=== PATIENT | male | born 1965 | race Caucasian/White ===

== ENCOUNTER 2021-06-08 09:41 | Outpatient (REF) | payer MEDICARE, OTHER, SELFPAY ==
[2021-06-08 10:25] LABS: Blood Urea Nitrogen 14 mg/dL (9-16); Estimated Glomerular Filt Rate > 60
== END 2021-06-08 09:42 | disposition home or self-care (01) ==
LOC: HO.LAB 09:41
PROVIDERS: PCP Internal Medicine; Visit Provider Psychiatry & Neurology Neurology
DX: G35 Multiple sclerosis (principal)
CPT/HCPCS: 36415; 82565; 84520

== ENCOUNTER 2021-06-20 13:25 | Outpatient (REF) | payer MEDICARE, OTHER, SELFPAY ==
--- NOTE | ~2021-06-20 | MR_ITS ---
EXAMINATION: MR BRAIN WITHOUT AND WITH CONTRAST MR CERVICAL SPINE WITHOUT AND WITH CONTRAST CLINICAL INFORMATION: Multiple sclerosis follow up study. Evaluate for disease progression. Pain/weakness in left hip/knee. COMPARISON: Prior MRI studies dated 12/18/2018 and 08/10/2017. TECHNIQUE: Multiplanar, multisequential imaging was obtained of the brain and cervical spine without and with intravenous administration of contrast. Intravenous contrast: Gadavist 10 mL. Limited study with motion artifacts. FINDINGS: BRAIN: When allowing for differences in imaging technique, the overall pattern of disease is without significant change. No new dominant white matter lesions are identified. Multiple low signal lesions on T1-weighted imaging correspond to areas of chronic demyelination. There is no abnormal parenchymal enhancement to suggest active inflammation. The gradient refocused acquisition is normal. No diffusion abnormalities are identified to suggest an acute or subacute infarct. The ventricles are normal in size. No mass effect or midline shift is seen. No extra-axial fluid collections are seen. On postcontrast imaging, there is no abnormal enhancement. There is an incidental stable proteinaceous retention cyst in the left fossa of [place]. Moderate diffuse parenchymal volume loss has slightly worsened. The craniovertebral junction, marrow signal, and midline structures are normal. The major intracranial flow-voids at the level of the [place] of [place] are preserved. The dural venous sinus flow-voids are maintained. The mastoid air cells are well aerated. Mild scattered areas of mucosal thickening noted in the maxillary and ethmoid sinuses. CERVICAL SPINE: A demyelinating plaque in the left ventrolateral cervical cord at the C2-C3 level is again visible with mild cord volume loss. No new additional lesions are visible, though assessment is limited due to motion artifacts. No abnormal enhancement visible. Significant loss of disc height with endplate spurring has progressed at the C6-C7 level with a mild retrosubluxation. Mild posterior subluxation also noted at the C3-C4 level without change. No compression fractures visible. C2-C3: Minimal annular bulge and exuberant right-sided facet arthropathy with moderate right foraminal encroachment, slightly worsened. C3-C4: Retrosubluxation and broad-based disc-osteophyte complex result in worsened imbj-sa-lzokugwk central canal stenosis with severe foraminal encroachment. C4-C5: Shallow left paracentral disc protrusion and mild endplate spurring with hypertrophic facet degeneration. Mild central canal stenosis and rriorxlm-yi-cobowd foraminal narrowing, more so on the left side. C5-C6: Mild left paracentral disc protrusion is stable with hypertrophic facet arthropathy on the right side. Mild central canal stenosis and worsened severe right and voex-cd-lyuuypwv left foraminal encroachment. C6-C7: Retrosubluxation and severe loss of disc height with a broad-based disc-osteophyte complex. Gagpfxsv-ja-lzfqpx foraminal narrowing, more so on the right side. C7-T1: No significant disc pathology. Patent central canal and foramina. There are small central and paracentral disc protrusions visible at the upper thoracic levels with mild impression upon the ventral thecal sac, superimposed upon mild disc-osteophyte complexes. MR/MR cervical spine wo/w con IMPRESSION: Limited study with motion artifacts. Otherwise, no evidence of disease progression in the brain or cervical spine. No focal parenchymal enhancement to indicate active inflammation. Mildly progressed moderate diffuse brain parenchymal volume loss. Progressed multilevel cervical spondylosis with significant foraminal encroachment due to facet spurring and disc-osteophyte complexes.
--- NOTE | ~2021-06-20 | MR_ITS ---
EXAMINATION: MR BRAIN WITHOUT AND WITH CONTRAST MR CERVICAL SPINE WITHOUT AND WITH CONTRAST CLINICAL INFORMATION: Multiple sclerosis follow up study. Evaluate for disease progression. Pain/weakness in left hip/knee. COMPARISON: Prior MRI studies dated 12/18/2018 and 08/10/2017. TECHNIQUE: Multiplanar, multisequential imaging was obtained of the brain and cervical spine without and with intravenous administration of contrast. Intravenous contrast: Gadavist 10 mL. Limited study with motion artifacts. FINDINGS: BRAIN: When allowing for differences in imaging technique, the overall pattern of disease is without significant change. No new dominant white matter lesions are identified. Multiple low signal lesions on T1-weighted imaging correspond to areas of chronic demyelination. There is no abnormal parenchymal enhancement to suggest active inflammation. The gradient refocused acquisition is normal. No diffusion abnormalities are identified to suggest an acute or subacute infarct. The ventricles are normal in size. No mass effect or midline shift is seen. No extra-axial fluid collections are seen. On postcontrast imaging, there is no abnormal enhancement. There is an incidental stable proteinaceous retention cyst in the left fossa of [place]. Moderate diffuse parenchymal volume loss has slightly worsened. The craniovertebral junction, marrow signal, and midline structures are normal. The major intracranial flow-voids at the level of the [place] are preserved. The dural venous sinus flow-voids are maintained. The mastoid air cells are well aerated. Mild scattered areas of mucosal thickening noted in the maxillary and ethmoid sinuses. CERVICAL SPINE: A demyelinating plaque in the left ventrolateral cervical cord at the C2-C3 level is again visible with mild cord volume loss. No new additional lesions are visible, though assessment is limited due to motion artifacts. No abnormal enhancement visible. Significant loss of disc height with endplate spurring has progressed at the C6-C7 level with a mild retrosubluxation. Mild posterior subluxation also noted at the C3-C4 level without change. No compression fractures visible. C2-C3: Minimal annular bulge and exuberant right-sided facet arthropathy with moderate right foraminal encroachment, slightly worsened. C3-C4: Retrosubluxation and broad-based disc-osteophyte complex result in worsened rutd-dk-juumusiq central canal stenosis with severe foraminal encroachment. C4-C5: Shallow left paracentral disc protrusion and mild endplate spurring with hypertrophic facet degeneration. Mild central canal stenosis and zxfryfbf-fb-ezqoqv foraminal narrowing, more so on the left side. C5-C6: Mild left paracentral disc protrusion is stable with hypertrophic facet arthropathy on the right side. Mild central canal stenosis and worsened severe right and ipyv-sm-swdeijjz left foraminal encroachment. C6-C7: Retrosubluxation and severe loss of disc height with a broad-based disc-osteophyte complex. Xojrlqct-un-qkmhfi foraminal narrowing, more so on the right side. C7-T1: No significant disc pathology. Patent central canal and foramina. There are small central and paracentral disc protrusions visible at the upper thoracic levels with mild impression upon the ventral thecal sac, superimposed upon mild disc-osteophyte complexes. MR/MR head/brain wo/w con IMPRESSION: Limited study with motion artifacts. Otherwise, no evidence of disease progression in the brain or cervical spine. No focal parenchymal enhancement to indicate active inflammation. Mildly progressed moderate diffuse brain parenchymal volume loss. Progressed multilevel cervical spondylosis with significant foraminal encroachment due to facet spurring and disc-osteophyte complexes.
== END 2021-06-20 13:26 | disposition home or self-care (01) ==
LOC: HO.MRI 13:25
PROVIDERS: PCP Internal Medicine; Visit Provider Psychiatry & Neurology Neurology
DX: G35 Multiple sclerosis (principal)
CPT/HCPCS: 70553; 72156; A9585

== ENCOUNTER 2021-10-05 09:17 | Outpatient (REF) | payer MEDICARE, OTHER, SELFPAY ==
[2021-10-05 11:15] LABS: Appearance Urine TURBID; Color Urine YELLOW; Glucose Urine UA NEG (NEG); Leukocyte Esterase Urine NEG (NEG); Nitrite Urine NEG (NEG); PH 5.5 (5.0-8.0); Specific Gravity - Urine >= 1.030 (1.005-1.025); Urine Blood NEG (NEG); Urine Ketones NEG (NEG); Urine Protein TRACE MG/DL (NEG-TRACE)
[2021-10-05 11:37] LABS: Hematocrit 46.4 % (42.0-52.0); Hemoglobin 15.4 g/dl (14.0-18.0); Mean Corpuscular HGB Conc 33.2 g/dl (31.0-36.0); Mean Corpuscular Volume 96.5 fL (80.0-98.0); Mean Platelet Volume 10.5 fL (9.4-12.4); Platelet Count 208 X10*3/uL (160-400); Red Blood Count 4.81 X10*6/uL (4.60-5.80); Red Cell Distribution Width 13.5 % (11.0-16.0); White Blood Count 4.5 X10*3/uL (4.8-10.8)
[2021-10-05 11:40] LABS: RBC Urine 0-2 /HPF (0); Squamous Epithelial Cell Urine TRACE /LPF; WBC Urine 0-2 /HPF (0-4)
[2021-10-05 11:41] LABS: Amorphous Sediment Urine 3+ /LPF; Hyaline Casts Urine 0-2 /LPF
[2021-10-05 12:08] LABS: Estimated Average Glucose 103 mg/dL; Hemoglobin A1c % 5.2 %
[2021-10-05 12:16] LABS: Alanine Aminotransferase 31 U/L (0-40); Albumin Level 4.1 g/dL (3.5-5.0); Alkaline Phosphatase 69 U/L (39-117); Anion Gap 12 (12-20); Aspartate Amino Transferase 31 U/L (5-37); Bilirubin Total 1.3 mg/dL (0.0-1.0); Blood Urea Nitrogen 13 mg/dL (9-16); Calcium 9.2 mg/dL (8.4-10.2); Carbon Dioxide 23 mmol/L (22-29); Chloride 108 mmol/L (96-108); Cholesterol 161 mg/dL; Estimated Glomerular Filt Rate > 60; Glucose Fasting 108 mg/dL (60-99); HDL Cholesterol 53 mg/dL; LDL Cholesterol Calculated 97 mg/dl; Potassium 4.2 mmol/L (3.3-5.1); Sodium 139 mmol/L (135-145); Total Protein 6.7 g/dL (6.5-8.0); Triglycerides 55 mg/dL
[2021-10-05 13:09] LABS: Prostate Specific Antigen Scr 1.22 ng/mL (<0.05-4.0)
== END 2021-10-05 09:18 | disposition home or self-care (01) ==
LOC: HO.HMGCLDS 09:17
PROVIDERS: PCP Internal Medicine; Visit Provider Internal Medicine
DX: Z00.00 Encounter for general adult medical examination without abnormal findings (principal); Z12.5 Encounter for screening for malignant neoplasm of prostate; E78.5 Hyperlipidemia, unspecified
CPT/HCPCS: 36415; 80053; 80061; 81001; 83036; 84153; 85027

== ENCOUNTER → 2022-03-07 14:37 | Outpatient (BNVA) | payer MEDICARE, OTHER, SELFPAY | PROVIDERS: PCP Internal Medicine; Visit Provider Urology | DX: N40.0 Benign prostatic hyperplasia without lower urinary tract symptoms (principal); G35 Multiple sclerosis | CPT/HCPCS: 51798; 99202 ==

== ENCOUNTER 2022-03-16 10:44 | Outpatient (REF) | payer MEDICARE, OTHER, SELFPAY ==
--- NOTE | ~2022-03-16 | XR_ITS ---
EXAMINATION: LEFT FOOT AND ANKLE X-RAYS CLINICAL INFORMATION: Pain COMPARISON: Previous left ankle x-ray February 2018 TECHNIQUE: 3 views of the left foot and 3 views of the left ankle FINDINGS: Left ankle: Bone alignment is normal. No fracture or dislocation is seen. The ankle mortise is normal. There is lateral soft tissue swelling. Left foot: No acute fracture or dislocation is seen. There is a well-corticated ossification adjacent to the lateral proximal phalanx of the fifth toe at the PIP joint questionable for old fracture. Joint spaces and soft tissues are normal. XR/XR ankle LT 2V IMPRESSION: Left ankle: Lateral soft tissue swelling. No fracture or dislocation. Left foot: Question old fracture of the proximal phalanx of the fifth toe.
--- NOTE | ~2022-03-16 | XR_ITS ---
EXAMINATION: LEFT FOOT AND ANKLE X-RAYS CLINICAL INFORMATION: Pain COMPARISON: Previous left ankle x-ray February 2018 TECHNIQUE: 3 views of the left foot and 3 views of the left ankle FINDINGS: Left ankle: Bone alignment is normal. No fracture or dislocation is seen. The ankle mortise is normal. There is lateral soft tissue swelling. Left foot: No acute fracture or dislocation is seen. There is a well-corticated ossification adjacent to the lateral proximal phalanx of the fifth toe at the PIP joint questionable for old fracture. Joint spaces and soft tissues are normal. XR/XR foot LT min 3V IMPRESSION: Left ankle: Lateral soft tissue swelling. No fracture or dislocation. Left foot: Question old fracture of the proximal phalanx of the fifth toe.
[2022-03-16 14:08] LABS: MANUAL DIFF FLAG NO
[2022-03-16 14:22] LABS: Basophils Absolute Auto 0.1 X10*3/uL (0.0-0.2); Basophils Percent Auto 1.4 % (0-2); Eosinophils Absolute Auto 0.2 X10*3/uL (0.0-0.4); Eosinophils Percent Auto 3.9 % (0-4); Hematocrit 44.9 % (42.0-52.0); Imm Gran Abs Auto 0.01 X10*3/uL (0.00-0.03); Imm Gran Pct Auto 0.2 % (0.0-0.4); Lymphocytes Absolute Auto 1.4 X10*3/uL (1.2-4.9); Lymphocytes Percent Auto 34.3 % (20-40); Mean Corpuscular HGB Conc 33.4 g/dl (31.0-36.0); Mean Corpuscular Hemoglobin 32.8 pg (27.0-33.0); Mean Corpuscular Volume 98.2 fL (80.0-98.0); Monocytes Absolute Auto 0.8 X10*3/uL (0.1-1.2); Monocytes Percent Auto 18.6 % (2-11); Neutrophils Absolute Auto 1.7 x10*3/uL (2.0-8.3); Neutrophils Percent Auto 41.6 % (45-73); Platelet Count 196 X10*3/uL (160-400); Red Blood Count 4.57 X10*6/uL (4.60-5.80); Red Cell Distribution Width 13.8 % (11.0-16.0); White Blood Count 4.1 X10*3/uL (4.8-10.8)
[2022-03-16 14:34] LABS: Alanine Aminotransferase 23 U/L (0-40); Albumin Level 4.2 g/dL (3.5-5.0); Alkaline Phosphatase 62 U/L (39-117); Anion Gap 13 (12-20); Aspartate Amino Transferase 26 U/L (5-37); Bilirubin Total 1.1 mg/dL (0.0-1.0); Blood Urea Nitrogen 14 mg/dL (9-16); Calcium 9.5 mg/dL (8.4-10.2); Carbon Dioxide 27 mmol/L (22-29); Chloride 105 mmol/L (96-108); Estimated Glomerular Filt Rate > 60; Glucose Random 104 mg/dL (60-115); Potassium 4.7 mmol/L (3.3-5.1); Sodium 140 mmol/L (135-145); Total Protein 6.9 g/dL (6.5-8.0)
== END 2022-03-16 10:45 | disposition home or self-care (01) ==
LOC: HO.HMGCX 10:44
PROVIDERS: PCP Internal Medicine; Visit Provider Internal Medicine
DX: M79.89 Other specified soft tissue disorders (principal); M25.572 Pain in left ankle and joints of left foot; M79.672 Pain in left foot
CPT/HCPCS: 36415; 73600; 73630; 80053; 85025

== ENCOUNTER 2022-03-23 13:03 | Outpatient (REF) | payer MEDICARE, OTHER, SELFPAY ==
--- NOTE | ~2022-03-23 | US_ITS ---
EXAMINATION: US VENOUS ULTRASOUND WITH DOPPLER LOWER EXTREMITY, LEFT CLINICAL INFORMATION: Left lower extremity edema. COMPARISON: None TECHNIQUE: Ultrasound of the deep veins is performed from the hip to the calf with compression sonography and color and pulse Doppler assessment. Spectral analysis with color-flow imaging is performed. FINDINGS: There is normal venous compression and respiratory variation and augmented flow. The visualized common femoral vein, superficial femoral vein, profunda femoral vein, popliteal vein, and the trifurcation region shows no evidence of deep venous thrombosis. No left popliteal cyst. Mild subcutaneous edema seen in the left calf. If the patient's symptoms persist, followup ultrasound in 5 days 7 days might be of value to exclude proximal propagation from a non-visualized calf vein. US/US venous duplex LE LT IMPRESSION: No evidence for deep venous thrombosis in the visualized veins of the left lower extremity.
== END 2022-03-23 13:04 | disposition home or self-care (01) ==
LOC: HO.HMGCX 13:03
PROVIDERS: PCP Internal Medicine; Visit Provider Internal Medicine
DX: R60.0 Localized edema (principal)
CPT/HCPCS: 93971

== ENCOUNTER → 2022-05-16 10:49 | Outpatient (BNVA) | payer OTHER, MEDICARE, SELFPAY | PROVIDERS: PCP Internal Medicine; Visit Provider Urology | DX: N40.0 Benign prostatic hyperplasia without lower urinary tract symptoms (principal); N32.81 Overactive bladder | CPT/HCPCS: 52000; 99212 ==

== ENCOUNTER → 2022-08-24 11:08 | Outpatient (BNVA) | payer OTHER, MEDICARE, SELFPAY | PROVIDERS: PCP Internal Medicine; Visit Provider Urology | DX: N32.81 Overactive bladder (principal); N40.0 Benign prostatic hyperplasia without lower urinary tract symptoms | CPT/HCPCS: Q3014 ==

== ENCOUNTER 2022-12-07 11:36 | Outpatient (REF) | payer OTHER, MEDICARE, SELFPAY ==
[2022-12-07 13:44] LABS: MANUAL DIFF FLAG NO
[2022-12-07 13:47] LABS: Basophils Absolute Auto 0.1 X10*3/uL (0.0-0.2); Basophils Percent Auto 1.6 % (0-2); Eosinophils Absolute Auto 0.2 X10*3/uL (0.0-0.4); Eosinophils Percent Auto 4.2 % (0-4); Hematocrit 47.9 % (42.0-52.0); Hemoglobin 16.3 g/dl (14.0-18.0); Imm Gran Abs Auto 0.01 X10*3/uL (0.00-0.03); Imm Gran Pct Auto 0.2 % (0.0-0.4); Lymphocytes Absolute Auto 1.8 X10*3/uL (1.2-4.9); Mean Corpuscular Hemoglobin 32.9 pg (27.0-33.0); Mean Corpuscular Volume 96.6 fL (80.0-98.0); Mean Platelet Volume 10.6 fL (9.4-12.4); Monocytes Absolute Auto 0.7 X10*3/uL (0.1-1.2); Monocytes Percent Auto 15.8 % (2-11); Neutrophils Absolute Auto 1.7 x10*3/uL (2.0-8.3); Neutrophils Percent Auto 38.2 % (45-73); Platelet Count 201 X10*3/uL (160-400); Red Blood Count 4.96 X10*6/uL (4.60-5.80); Red Cell Distribution Width 13.4 % (11.0-16.0); White Blood Count 4.5 X10*3/uL (4.8-10.8)
[2022-12-07 14:05] LABS: Alanine Aminotransferase 27 U/L (0-40); Albumin Level 4.3 g/dL (3.5-5.0); Alkaline Phosphatase 65 U/L (39-117); Anion Gap 13 (12-20); Aspartate Amino Transferase 29 U/L (5-37); Bilirubin Total 1.6 mg/dL (0.0-1.0); Blood Urea Nitrogen 13 mg/dL (9-16); Calcium 9.3 mg/dL (8.4-10.2); Carbon Dioxide 24 mmol/L (22-29); Chloride 107 mmol/L (96-108); Cholesterol 158 mg/dL; Estimated Glomerular Filt Rate > 60; Glucose Fasting 113 mg/dL (60-99); HDL Cholesterol 55 mg/dL; LDL Cholesterol Calculated 92 mg/dl; Potassium 4.4 mmol/L (3.3-5.1); Sodium 140 mmol/L (135-145); Total Protein 6.9 g/dL (6.5-8.0); Triglycerides 56 mg/dL
[2022-12-07 14:22] LABS: TSH reflex Free T4 3.86 uIU/mL (0.32-4.0)
== END 2022-12-07 11:37 | disposition home or self-care (01) ==
LOC: HO.HMGCLDS 11:36
PROVIDERS: PCP Internal Medicine; Visit Provider Internal Medicine
DX: E78.5 Hyperlipidemia, unspecified (principal); Z00.00 Encounter for general adult medical examination without abnormal findings
CPT/HCPCS: 36415; 80053; 80061; 84443; 85025

== ENCOUNTER 2023-01-18 21:34 | Emergency (ER) | payer OTHER, MEDICARE, SELFPAY ==
[2023-01-18 21:39] VITALS: BP 161/82; PULSE 85; RESP 16; TEMP 37; O2SAT 95; BMI 31.7
--- NOTE | 2023-01-18 22:58 | ED.WOUNDLAC ---
HPI - Wound/Laceration General Chief Complaint: Wound/Laceration Stated Complaint: fell hit head and laceration Time Seen by Provider: 01/18/23 22:48 Source: patient Mode of arrival: ambulatory Limitations: no limitations History of Present Illness HPI narrative: Patient comes to the emergency room complaining of a laceration to the forehead. Patient states that he was walking out with his dog, fell forward and injured his forehead. Patient is not on blood thinners. Patient denies headache. Denies neck pain. Denies any other injuries. Related Data Home Medications Medication Instructions Recorded Confirmed cholecalciferol (vitamin D3) PO 10/03/21 12/07/22 mesalamine 1.2 gram tablet,delayed 2.4 g PO DAILY 10/03/21 12/07/22 release teriflunomide 14 mg tablet 14 mg PO DAILY 10/03/21 12/07/22 (Aubagio) vitamin B complex PO 10/03/21 12/07/22 Previous Rx's Medication Instructions Recorded terazosin 10 mg capsule 10 mg PO BEDTIME 90 days #90 caps 08/24/22 furosemide 40 mg tablet 40 mg PO DAILY #90 tabs 12/07/22 Allergies Allergy/AdvReac Type Severity Reaction Status Date / Time No Known Allergies Allergy Verified 12/07/22 10:54 [No Known Allergies*] Review of Systems Review of Systems: Constitutional : No Weight loss, No Fever, No Chills, No Night Sweats, No Fatigue, No Malaise ENT/Mouth : No Hearing loss, No Ear Pain, No Nasal Congestion, No Sinus Pain, No Hoarseness, No sore throat, No Rhinorrhea, No Swallowing Difficulty Eyes: No Eye Pain, No Swelling, No Redness, No Foreign Body, No Discharge, No Vision Changes Cardiovascular : No Chest Pain, No SOB, No Dyspnea on Exertion, No Orthopnea, No Edema, No Palpitations Respiratory : No Cough, No Sputum, No Wheezing, No Smoke Exposure, No Dyspnea Gastrointestinal : No Nausea, No Vomiting, No Diarrhea, No Constipation, No abdominal Pain, No Hematochezia, No Melena Genitourinary : no irregular bleeding, No Dysuria, No Urinary Frequency, No Hematuria, No Urinary Incontinence, No Urgency, No Flank Pain, No Urinary Flow Changes, No Hesitancy Musculoskeletal : No joint pain, No Myalgias, No Joint Swelling Skin : Laceration to the forehead Neuro : No Weakness, No Numbness, No Paresthesias, No Loss of Consciousness, No Dizziness, No Headache Psych : No Anxiety/Panic, No Depression, No SI/HI/AH/VH, No Social Issues, Heme/Lymph: No Bruising, No Bleeding,No Lymphadenopathy Endocrine : No Polyuria, No Polydipsia, No Temperature Intolerance [facility] Past Medical History Medical History Annual physical exam BPH (benign prostatic hyperplasia) Crohn's disease Hyperlipidemia IBS (irritable bowel syndrome) Multiple sclerosis Surgical History H/O colonoscopy Family History Family History Father DM (diabetes mellitus) Social History Social History Housing: House Patient Tobacco Use Status: Former Tobacco user Smoked in Last 30 Days: No e-Cigarette/Vaping Use: Never Used Use of substances other than those prescribed or required for medical reasons: No Advance Directives: No Advance Directives Information Provided: Yes Current occupational status: unemployed Cognitive needs: No Hearing needs: No Vision needs: Yes Physical Exam Vital Signs: Vital Signs: Last Vital Signs Temp 98.6 F 01/18/23 21:39 Pulse 85 01/18/23 21:39 Resp 16 01/18/23 21:39 BP 161/82 H 01/18/23 21:39 Pulse Ox 95 01/18/23 21:39 O2 Del Method Room Air 01/18/23 21:39 BMI result Body Mass Index 31.7 Const: Other: Appearance: Alert. Oriented X3. No acute distress. Eyes: Pupils equal, round and reactive to light. ENT: Pharynx normal. Neck: Normal inspection. Neck supple. No lymph nodes noted. No crepitus CVS: Normal heart rate and rhythm. Pulses normal. Normal S1 and S2 Respiratory: No respiratory distress. Breath sounds normal. No Wheezing. No rales Abdomen: Soft and nontender. No rigidity. No distention. Skin: Skin warm and dry. Normal skin color. Normal skin turgor. 6 cm laceration to the forehead Extremities: No lower extremity edema. No Lacerations. No Rash Neuro: Oriented X 3. No motor deficit. No sensory deficit. Moving all extremities. No slurred speech. CN 2 through 12 grossly intact Psych: calm, cooperative, normal affect Medical Decision Making Differential Diagnosis Differential Diagnoses: The differential diagnosis associated with the presentation includes (laceration, abrasion, cut) Chronic Conditions Patient?s care impacted by: Other (Multiple sclerosis, Crohn's, BPH, hyperlipidemia) Procedures Laceration Laceration 1: Site: face Size (cm): 6 Description: linear and irregular Depth: simple, single layer Local Anesthetic: lidocaine 1% Amount of anesthesia used (mL): 12 Skin layer closed with: nylon Size (cm): 5-0 Number of sutures: 9 Technique: simple, interrupted Discharge Plan Discharge Clinical Impression: Facial laceration Patient Disposition: Home, Self-Care Instructions: Facial Laceration (ED) Additional Instructions: Your stitches need to be removed in 7-10 days. If you see any signs of infection such as redness, pus drainage, fever or chills, please return to the emergency room immediately. Please follow-up with your primary care physician tomorrow. If you have any worsening or new symptoms, please return to the emergency room or call 911 Prescriptions: No Action mesalamine 1.2 gram tablet,delayed release (DR/EC) 2.4 g PO DAILY Aubagio 14 mg tablet 14 mg PO DAILY cholecalciferol (vitamin D3) PO vitamin B complex PO furosemide 40 mg tablet 40 mg PO DAILY Qty: 90 1RF terazosin 10 mg capsule 10 mg PO BEDTIME 90 Days Qty: 90 1RF
[2023-01-18] MEDS: Lidocaine HCl 1 % 20 ML VIAL INFILTRATI (23:30)
== END 2023-01-18 23:56 | disposition home or self-care (01) ==
PROVIDERS: Emergency Provider Emergency Medicine; PCP Internal Medicine
DX: S01.81XA Laceration without foreign body of other part of head, initial encounter (principal); R51.9 Headache, unspecified; W01.10XA Fall on same level from slipping, tripping and stumbling with subsequent striking against unspecified object, initial encounter; Y93.9 Activity, unspecified; Y92.9 Unspecified place or not applicable; Y99.9 Unspecified external cause status
CPT/HCPCS: 12014; 99284

== ENCOUNTER 2023-01-26 09:48 | Emergency (ER) | payer OTHER, SELFPAY ==
[2023-01-26 09:50] VITALS: BP 182/96; PULSE 80; RESP 19; TEMP 36.6; O2SAT 98; BMI 31.7
--- NOTE | 2023-01-26 10:24 | ED.GENADULT ---
HPI - General Adult General Chief complaint: Wound/Laceration Stated complaint: stitches removal Time Seen by Provider: 01/26/23 10:00 Source: patient Mode of arrival: ambulatory Limitations: no limitations History of Present Illness HPI narrative: 57-year-old male with history of multiple sclerosis presents to the ED for facial suture removal. Patient states no erythema, pus discharge, foul odor, fever, chills, or pain and wound. Patient denies any other physical complaints. Related Data Home Medications Medication Instructions Recorded Confirmed cholecalciferol (vitamin D3) PO 10/03/21 12/07/22 mesalamine 1.2 gram tablet,delayed 2.4 g PO DAILY 10/03/21 12/07/22 release teriflunomide 14 mg tablet 14 mg PO DAILY 10/03/21 12/07/22 (Aubagio) vitamin B complex PO 10/03/21 12/07/22 Previous Rx's Medication Instructions Recorded terazosin 10 mg capsule 10 mg PO BEDTIME 90 days #90 caps 08/24/22 furosemide 40 mg tablet 40 mg PO DAILY #90 tabs 12/07/22 Allergies Allergy/AdvReac Type Severity Reaction Status Date / Time No Known Allergies Allergy Verified 01/26/23 09:50 [No Known Allergies*] Review of Systems Review of Systems: Suture removal Yes all other systems are reviewed and are negative PMFSH Past Medical History Medical History Annual physical exam BPH (benign prostatic hyperplasia) Crohn's disease Hyperlipidemia IBS (irritable bowel syndrome) Multiple sclerosis Surgical History H/O colonoscopy Family History Family History Father DM (diabetes mellitus) Social History Social History Housing: House Patient Tobacco Use Status: Former Tobacco user e-Cigarette/Vaping Use: Never Used Advance Directives: Yes Advance Directives Information Provided: Yes Advance Directives on File: No Current occupational status: unemployed Cognitive needs: No Hearing needs: No Vision needs: Yes Physical Exam ED Vital Signs: Vital Signs - 24 hr 01/26/23 09:50 Temperature 98 F Pulse Rate 80 Respiratory Rate 19 Blood Pressure 182/96 H Pulse Oximetry 98 Oxygen Delivery Method Room Air BMI result Body Mass Index 31.7 Const General: cooperative, healthy appearing, comfortable, no acute distress, well developed, alert, awake and Physically active Orientation/consciousness: oriented to person, oriented to place, oriented to time and patient oriented x3 HENMT Head: Yes normal to inspection, Yes No palpable skull fracture present, Yes normocephalic, Yes atraumatic and No abrasion Head images: 1. healing laceration with sutures. No signs of infection. No signs of dehiscence Eyes General: appearance normal, both eyes and all related structures Neck Neck: Yes normal visual inspection, Yes full ROM, Yes no lymphadenopathy, Yes no meningeal signs, Yes trachea midline, Yes supple, No anterior neck swelling and No tender Chest Chest palpation & inspection: normal inspection of the chest and normal palpation of entire chest wall Resp Effort & Inspection: normal respiratory effort and able to speak in complete sentences Auscultation: clear to auscultation bilaterally Cardio Jugular venous distension: no JVD Heart sounds: S1 normal heart sound present and S2 normal heart sound present GI Inspection: Yes normal to inspection and No abdominal wall ecchymosis Palpation (GI): Soft to palpation, not firm, nontender, no guarding and not rigid General: No CVA tenderness and Yes no CVA tenderness Back/Spine/Pelvis Back: no CVA tenderness, No CVA tenderness and No back tenderness Skin General skin exam: no rashes or lesions noted and elasticity normal Neuro General: oriented to person, oriented to place, oriented to time, patient oriented x3, gait normal, tone normal, moves all extremities, Normal light touch and pain sensation, no meningeal signs, no focal motor deficits, CN's II-XI intact bilaterally and normal sensation to monofilament Extrem General: Yes normal to inspection and Yes full ROM Psych Appearance: grossly normal, well kempt and not disheveled Medical Decision Making Medical Decision Making MDM Narrative: 57-year-old male with history of Crohn's disease, multiple sclerosis, hypertension presents to the ED for facial suture be removed. Patient states no signs of infection at sutures. Patient states no other complaints. Sutures removed and wound cleaned. Patient is safe for discharge. Differential Diagnosis Differential Diagnoses: The differential diagnosis associated with the presentation includes ( Cellulitis, wound infection, wound dehiscence) Admission/Observation Consideration of admission/observation: Escalation of care including admission/observation considered Chronic Conditions Patient?s care impacted by: Other ( multiple sclerosis) Discharge Plan Discharge Clinical Impression: Encounter for removal of sutures Patient Disposition: Home, Self-Care Instructions: Stitches Removal (ED) Additional Instructions: return to the ED immediately for any redness, pus discharge, foul odor, fever, chills, or any other concerning symptoms. Please follow-up with the primary care provider. Prescriptions: No Action mesalamine 1.2 gram tablet,delayed release (DR/EC) 2.4 g PO DAILY Aubagio 14 mg tablet 14 mg PO DAILY cholecalciferol (vitamin D3) PO vitamin B complex PO furosemide 40 mg tablet 40 mg PO DAILY Qty: 90 1RF terazosin 10 mg capsule 10 mg PO BEDTIME 90 Days Qty: 90 1RF Interventions: ED Discharge Assessment Last Done: 01/26/23 11:10 Discharge Date/Time: 01/26/23 11:11 Print Language: [place]
== END 2023-01-26 11:11 | disposition home or self-care (01) ==
PROVIDERS: Emergency Provider Emergency Medicine Emergency Medical Services; PCP Internal Medicine
DX: Z48.02 Encounter for removal of sutures (principal); Z79.899 Other long term (current) drug therapy
CPT/HCPCS: 99282

== ENCOUNTER 2023-03-09 13:26 | Outpatient (AMB) | payer OTHER, MEDICARE, SELFPAY ==
--- NOTE | 2023-03-09 13:28 | A.OFFVIS_ITS ---
Intake Intake Visit Reasons: 6m follow up/PVR Intake Note: Patient is present for Follow Up PVR Urology Med: Terazosin Antibiotic Allergy: none Blood Thinner: None Pharmacy: [facility] PVR: 0ml Allergies No Known Allergies [No Known Allergies*] Allergy (Verified 03/09/23 13:30) HPI HPI Comments History of Present Illness Details Richard is a pleasant male. He is a patient Dr. Galaviz. Seen for the following urologic conditions - lower urinary tract symptoms - overactive bladder - multiple sclerosis Stable with current medications Tight bladder neck on cystoscopy Stable with 10 mg terazosin Continue 6 month follow-up Lower urinary tract symptoms Weakness of stream with urinary urgency and feeling of incomplete emptying Background of multiple sclerosis diagnosed in 2014 Had trialed Flomax with minimal effect Current medications include terazosin 10 mg Cystoscopy - tight bladder neck PSA 10/11 1.2 PFSH Medical History Annual physical exam BPH (benign prostatic hyperplasia) Crohn's disease Hyperlipidemia IBS (irritable bowel syndrome) Multiple sclerosis Surgical History H/O colonoscopy Family History Father DM (diabetes mellitus) Social History Housing: House Patient Tobacco Use Status: Former Tobacco user e-Cigarette/Vaping Use: Never Used Current occupational status: unemployed Cognitive needs: No Hearing needs: No Vision needs: Yes Review of Systems Const Denies chills and Denies fever(s) Card Reports no additional complaints and Denies syncope Resp Denies cough GI Denies abdominal pain and Denies heartburn Reports as per HPI and Denies change in libido Neuro Denies syncope Psych Denies change in libido Endo Denies change in libido Physical Exam Const General: cooperative, healthy appearing, comfortable and no acute distress Orientation/consciousness: patient oriented x3 HEENT Face and sinus: Yes normal facial exam Mouth: moist mucous membranes Neck Neck: Yes normal visual inspection, Yes full ROM and Yes trachea midline Chest Chest palpation & inspection: normal inspection of the chest Resp Effort & Inspection: normal respiratory effort, able to speak in complete sentences and no respiratory distress GI Inspection: Yes normal to inspection Back/Spine/Pelvis Cervical Spine: normal cervical lordosis Thoracic/Lumbar Spine: thoracic and lumbar spine normal to inspection Skin General skin exam: no rashes or lesions noted Neuro General: patient oriented x3, gait normal, tone normal and moves all extremities Extrem General: Yes normal to inspection and Yes capillary refill normal Office Procedures Post Void Residual Post Residual Void Post Void Residual (PVR): 0 98250-Wgtj Void Residual by ultrasound Assessment & Plan Assessment & Plan (1) Multiple sclerosis: Comment: f/u Dr Obando, L side weakness Code(s): G35 - Multiple sclerosis (2) BPH (benign prostatic hyperplasia): Code(s): N40.0 - Benign prostatic hyperplasia without lower urinary tract symptoms Plan 6 month follow-up PVR Orders: Orders AMB Urinalysis Automated Today Z13.9 - Encounter for screening, unspecified AMB Post Void Residual by ultrasound Today N40.0 - Benign prostatic hyperplasia without lower urinary tract symptoms Patient Instructions: Imaging studies, laboratory and physical exam results were discussed and revie wed in detail. No major barriers to patient understanding were identified. An opportunity to ask questions regarding the treatment plan was provided. All questions were answered. The patient expressed understanding and agreement with the above treatment plan. The patient is aware they should contact our office by phone for worsening of their current condition or the appearance of new urologic symptoms. Compliance is encouraged with any medications and followup testing that is ordered. It is a privilege to participate in the urologic care of your patient. If you have any questions or concerns regarding treatment for the above conditions, or other urologic issues, please do not hesitate to contact me. The office telephone contact is [phone]. This note is constructed using voice recognition software. While every effort has been made to ensure accuracy field installation technician errors may have been included. Yours sincerely, Dr Rodo Quiroz MD, [facility] - Urology Providers of Expert, Compassionate Care for the Genitourinary System Coding Level of Care Code Est Pt Level 3 (43331) Diagnoses Multiple sclerosis G35 BPH (benign prostatic hyperplasia) N40.0 CPT Codes Post Residual Void - PVR CPT Code: 64827-Hzdu Void Residual by ultrasound ([id number])
== END 2023-03-09 13:56 | disposition home or self-care (01) ==
PROVIDERS: PCP Internal Medicine; Visit Provider Urology
DX: G35 Multiple sclerosis (principal); N40.0 Benign prostatic hyperplasia without lower urinary tract symptoms
CPT/HCPCS: 99213

== ENCOUNTER → 2023-03-09 13:26 | Outpatient (BNVA) | payer OTHER, MEDICARE, SELFPAY | PROVIDERS: Visit Provider Urology | DX: G35 Multiple sclerosis (principal); N40.0 Benign prostatic hyperplasia without lower urinary tract symptoms | CPT/HCPCS: 51798; 99212 ==

== ENCOUNTER 2023-07-12 13:29 | Outpatient (REF) | payer OTHER, MEDICARE, SELFPAY ==
--- NOTE | ~2023-07-12 | MR_ITS ---
EXAMINATION: MR BRAIN WITH AND WITHOUT CONTRAST CLINICAL INFORMATION: MS, TIA COMPARISON: MRI brain 06/20/2021 TECHNIQUE: MRI of the brain was obtained using routine sequences before and following administration of intravenous contrast. A total of 10 mL of Gadavist was administered intravenously. FINDINGS: Motion degraded examination. Stable moderate burden of demyelinating disease throughout the supratentorial greater than infratentorial compartments with multiple low T1 signal intensity lesions compatible with chronic demyelinating plaques. No new lesions identified. No enhancement to suggest active demyelination. There is thinning of the body of the corpus callosum. Stable moderate global cerebral volume loss. The GRE sequence is without susceptibility artifact to suggest acute or chronic blood products. No extra-axial fluid collection. No significant mass effect or herniation pattern. The intracranial dural venous sinus and arterial flow voids are preserved. The orbits are grossly unremarkable. Mild patchy paranasal sinus mucosal disease most pronounced in the ethmoid air cells. A couple opacified bilateral mastoid air cells. Normal marrow signal. MR/MR head/brain wo/w con IMPRESSION: Stable moderate burden of demyelinating disease without new or enhancing lesions identified to suggest active demyelination. No new acute intracranial process.
[2023-07-12] MEDS: gadobutroL 10 ML VIAL IVPUSH (14:36)
== END 2023-07-12 13:30 | disposition home or self-care (01) ==
LOC: HO.MRI 13:29
PROVIDERS: PCP Internal Medicine; Visit Provider Psychiatry & Neurology Neurology
DX: G35 Multiple sclerosis (principal); G45.9 Transient cerebral ischemic attack, unspecified
CPT/HCPCS: 70553; A9585

== ENCOUNTER 2023-09-18 13:21 | Outpatient (AMB) | payer OTHER, MEDICARE, SELFPAY ==
--- NOTE | 2023-09-18 13:39 | A.OFFVIS_ITS ---
Intake Intake Visit Reasons: 6M PVR(Confirmed) Intake Note: Patient is Present for Follow Up PVR Urology Medication: Terazosin Antibiotic Allergies: None Blood Thinners: None Confirmed Pharmacy: [facility] PVR: 0 Allergies No Known Allergies [No Known Allergies*] Allergy (Verified 09/18/23 13:41) HPI HPI Comments History of Present Illness Details Richard is a pleasant male. He is a patient Dr. Galaviz. Seen for the following urologic conditions - lower urinary tract symptoms - overact laurie bladder - multiple sclerosis Six-month follow-up PVR 0 cc Stable with current medications Tight bladder neck on cystoscopy Stable with 10 mg terazosin Discussed DSD - detrusor sphincter dyssynergia Lower urinary tract symptoms Weakness of stream with urinary urgency and feeling of incomplete emptying Background of multiple sclerosis diagnosed in 2014 Had trialed Flomax with minimal effect Current medications include terazosin 10 mg Cystoscopy - tight bladder neck PSA 10/11 1.2 PFSH Medical History BPH (benign prostatic hyperplasia) Hyperlipidemia Annual physical exam Crohn's disease IBS (irritable bowel syndrome) Multiple sclerosis Surgical History H/O colonoscopy Family History Father DM (diabetes mellitus) Social History Housing: House Patient Tobacco Use Status: Former Tobacco user e-Cigarette/Vaping Use: Never Used Current occupational status: unemployed Cognitive needs: No Hearing needs: No Vision needs: Yes Review of Systems Const Denies chills and Denies fever(s) Card Reports no additional complaints and Denies syncope Resp Denies cough GI Denies abdominal pain and Denies heartburn Reports as per HPI and Denies change in libido Neuro Denies syncope Psych Denies change in libido Endo Denies change in libido Physical Exam Const General: cooperative, healthy appearing, comfortable and no acute distress Orientation/consciousness: patient oriented x3 HEENT Face and sinus: Yes normal facial exam Mouth: moist mucous membranes Neck Neck: Yes normal visual inspection, Yes full ROM and Yes trachea midline Chest Chest palpation & inspection: normal inspection of the chest Resp Effort & Inspection: normal respiratory effort, able to speak in complete sentences and no respiratory distress GI Inspection: Yes normal to inspection Back/Spine/Pelvis Cervical Spine: normal cervical lordosis Thoracic/Lumbar Spine: thoracic and lumbar spine normal to inspection Skin General skin exam: no rashes or lesions noted Neuro General: patient oriented x3, gait normal, tone normal and moves all extremities Extrem General: Yes normal to inspection and Yes capillary refill normal Office Procedures Post Void Residual Post Residual Void Post Void Residual (PVR): 0 65526-Hebc Void Residual by ultrasound Assessment & Plan Assessment & Plan (1) Overactive bladder: Code(s): N32.81 - Overactive bladder (2) Multiple sclerosis: Comment: f/u Dr Obando, Nabil side weakness Code(s): G35 - Multiple sclerosis (3) BPH (benign prostatic hyperplasia): Code(s): N40.0 - Benign prostatic hyperplasia without lower urinary tract symptoms Plan Twelve month follow-up Orders: Orders AMB Post Void Residual by ultrasound 09/18/23 N40.0 - Benign prostatic hyperplasia without lower urinary tract symptoms Medications: Refilled terazosin 10 mg PO BEDTIME 90 caps 3RF 90 days N40.0 - Benign prostatic hyperplasia without lower urinary tract symptoms Patient Instructions: Imaging studies, laboratory and physical exam results were discussed and reviewed in detail. No major barriers to patient understanding were identified. An opportunity to ask questions regarding the treatment plan was provided. All questions were answered. The patient expressed understanding and agreement with the above treatment plan. The patient is aware they should contact our office by phone for worsening of their current condition or the appearance of new urologic symptoms. Compliance is encouraged with any medications and followup testing that is ordered. It is a privilege to participate in the urologic care of your patient. If you have any questions or concerns regarding treatment for the above conditions, or other urologic issues, please do not hesitate to contact me. The office telephone contact is [phone]. This note is constructed using voice recognition software. While every effort has been made to ensure accuracy blanket cutting machine operator errors may have been included. Yours sincerely, Dr Rodo Quiroz MD, [facility] - Urology Providers of Expert, Compassionate Care for the Genitourinary System Coding Level of Care Code Est Pt Level 4 (37273) Diagnoses Overactive bladder N32.81 Multiple sclerosis G35 BPH (benign prostatic hyperplasia) N40.0 CPT Codes Post Residual Void - PVR CPT Code: 88269-Tfsf Void Residual by ultrasound ([id number])
== END 2023-09-18 14:06 | disposition home or self-care (01) ==
PROVIDERS: PCP Internal Medicine; Visit Provider Urology
DX: N32.81 Overactive bladder (principal); G35 Multiple sclerosis; N40.0 Benign prostatic hyperplasia without lower urinary tract symptoms
CPT/HCPCS: 99213

== ENCOUNTER → 2023-09-18 13:21 | Outpatient (BNVA) | payer OTHER, MEDICARE, SELFPAY | PROVIDERS: PCP Internal Medicine; Visit Provider Urology | DX: N32.81 Overactive bladder (principal); N40.0 Benign prostatic hyperplasia without lower urinary tract symptoms; G35 Multiple sclerosis; Z79.899 Other long term (current) drug therapy | CPT/HCPCS: 51798 ==

== ENCOUNTER 2024-04-16 10:22 | Outpatient (AMB) | payer OTHER, MEDICARE, SELFPAY ==
--- NOTE | 2024-04-16 10:31 | A.OFFPC_ITS ---
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 Intake Note: establish care Allergies No Known Allergies [No Known Allergies*] Allergy (Verified 04/16/24 10:35) Medication List - Last Reconciled 04/16/24 by Prudencio Stroud MD albuterol sulfate 90 mcg/actuation (Ventolin HFA) 1 inh inhalation QID PRN cholecalciferol (vitamin D3) PO furosemide 40 mg PO DAILY mesalamine 2.4 grams PO DAILY terazosin 10 mg PO BEDTIME 90 days teriflunomide (Aubagio) 14 mg PO DAILY vitamin B complex PO Tobacco use date assessed: 04/16/24 Dental Screening Dental Screen Date: 04/16/24 Did you have a dental visit in the last 12 months?: Yes Did you have a dental problem in the last 6 months where you did not have access to dental care?: No Was dental information given to patient?: Patient has dentist 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 ?? Prior PCP:? Dr Galaviz Last office visit/CPE:? Acute issue(s):? R Shoulder pain x 7-8 mos L foot swelling & pain Foot ankle arthritis on Xray Podiatry Dr Reynoso Chronic cough ?? PMHx:??Multiple?sclerosis - Neurologist: Dr Haines , Crohn's - [facility] hyperlipidemia, lower?extremity?edema, BPH, overactive?bladder: Dr Quiroz., hyperglycemia. ?Ex-smoker SurgHx:? Lung resection/biopsy - Noncancerous/Just cyst SocHx:??Ex-smoker quit 2015 HPI Comments History of Present Illness Details Documentation assistance for Prudencio Stroud MD, was provided by Brett Nichole,? Inspecting Supervisor on 04/16/2024 at 11:40 AM EST. I, Dr. Stroud, have read, observed, and verified documentation. [facility] Medical History BPH (benign prostatic hyperplasia) Hyperlipidemia Annual physical exam Crohn's disease IBS (irritable bowel syndrome) Multiple sclerosis Surgical History H/O colonoscopy Family History Father DM (diabetes mellitus) Social History (Updated 04/16/24 @ 10:35 by Eliot Brewster MA) Housing: House Patient Tobacco Use Status: Former Tobacco user e-Cigarette/Vaping Use: Never Used Current occupational status: unemployed and retired Cognitive needs: No Hearing needs: No Vision needs: Yes Questionnaire PHQ-9 Over the last 2 weeks, how often have you been bothered by any of the following problems? 1. Little interest or pleasure in doing things: not at all 2. Feeling down, depressed, or hopeless: not at all 3. Trouble falling or staying asleep, or sleeping too much: several days 4. Feeling tired or having little energy: several days 5. Poor appetite or overeating: not at all 6. Feeling bad about yourself - or that you are a failure or have let yourself or your family down: not at all 7. Trouble concentrating on things, such as reading the newspaper or watching television: not at all 8. Moving or speaking so slowly that other people could have noticed. Or the opposite - being so fidgety or restless that you have been moving around a lot more than usual: not at all 9. Thoughts that you would be better off or of hurting yourself in some way: not at all Total score: 2 Depression Screening Interpretation: Negative Depression Screening Done: Yes 87219 - PHQ-9 Billing: Yes Source: Developed by Drs. Markos Albert, Agueda Auguste, Cristopher Ruiz and colleagues, with an educational viridiana from [employer]. Thrive Questionnaire Date Thrive assessed: 04/16/24 I am a: Patient What is your living situation today?: I have a steady place to live Within the past 12 months, did the food you bought not last and you didn't have the money to get more?: Never true Within the past 12 months, did you worry whether your food would run out before you got money to buy more?: Never true Do you have trouble paying for medicines?: No Do you have trouble getting transportation to medical appointments?: No Do you have trouble paying your heating and electricity bill?: No Do you have trouble taking care of your child, family member or friend?: No Do you have trouble with day-to-day activities such as bathing, preparing meals, shopping, managing finances, etc.?: No Are you currently unemployed and looking for a job?: No Are you interested in more education?: No Currently or been in a relationship where the following occur: No concerns reported THRIVE Score: 0 AUDIT C Alcohol Use Questionnaire (AUDIT-C) 1. How often do you have a drink containing alcohol?: 2-3 times a week 2. How many drinks containing alcohol do you have on a typical day when you are drinking?: 3 or 4 3. How often do you have six or more drinks on one occasion?: Less than monthly Total Score: 5 Score Reviewed/Action Taken: Yes JING-7 AMB Questionnaire JING-7 Date JING - 7 assessed: 04/16/24 Feeling nervous, anxious, or on edge: 0 = Not at all Not being able to stop or control worryin = Not at all Worrying too much about different things: 1 = Several days Trouble relaxin = Several days Being so restless that it is hard to sit still: 1 = Several days Becoming easily annoyed or irritable: 1 = Several days Feeling afraid as if something awful might happen: 0 = Not at all Total JING-7 score (0-4 normal; 5-9 mild; 10-14 moderate; 15-21 severe): 4 Source: Developed by Drs. Markos Albert, Agueda Auguste, Cristopher Ruiz and colleagues, with an educational viridiana from [employer]. JING-7 Assessment Billing JING-7 Assessment Tool: JING-7 Assessment 56030 Review of Systems Const Denies chills, Denies fatigue, Denies fever(s), Denies headache(s) and Denies weakness ENT Denies dizziness and Denies headache(s) Card Denies chest pain, Denies lightheadedness, Denies dyspnea and Denies other (Palpitations) Resp Reports cough, Denies dyspnea and Denies wheezing Musc Denies numbness and Denies tingling Neuro Denies dizziness, Denies headache(s), Denies numbness, Denies tingling, Denies paresthesias and Denies weakness Psych Denies anxiety and Denies depression Endo Denies fatigue Aller/Immun Denies wheezing Physical exam (Primary Care) Vital Signs: Last Vital Signs Temp 96.2 F L 04/16/24 10:38 Pulse 75 04/16/24 10:38 Resp 16 04/16/24 10:38 BP 140/70 H 04/16/24 10:38 Pulse Ox 97 04/16/24 10:38 Oxygen Delivery Method Room Air 04/16/24 10:38 BMI result Body Mass Index 32.3 Tobacco/Smoking Status: Tobacco use Status Tobacco use date assessed 04/16/24 04/16/24 10:41 Patient Tobacco Use Status Former Tobacco user 04/16/24 10:35 e-Cigarette/Vaping Use Never Used 04/16/24 10:35 PHQ-9: PHQ-9 Score PHQ-9: Total score 2 04/16/24 11:00 Depression Screening Interpretation: Negative Thrive Assessment: Date of Thrive Assessment Date Thrive assessed 04/16/24 04/16/24 10:43 Currently or been in a relationship where the following occur: No concerns reported Const General: no acute distress and well developed Nutritional Appearance: well nourished Orientation/consciousness: patient oriented x3 HENMT Head: Yes normocephalic and Yes atraumatic Eyes General: appearance normal, both eyes and all related structures Pupils: Equal, round and reactive pupils present EOM: EOMs intact bilaterally Resp Other: Mild and distant breath sounds Effort & Inspection: normal respiratory effort Auscultation: clear to auscultation bilaterally Cardio Rate: regular rate Rhythm: regular rhythm Heart sounds: S1 normal heart sound present, S2 normal heart sound present, no gallops, no murmurs and no rubs Neuro General: patient oriented x3 and gait normal Cranial nerves: Yes Equal, round and reactive pupils present Psych Affect: normal affect Assessment and Plan Assessment & Plan (1) Crohn's disease: Comment: f/u Dr. Damian Code(s): K50.90 - Crohn's disease, unspecified, without complications Plan: Patient?is?on?mesalamine Stable Follow-up?with??Mateo?as?recommended (2) Multiple sclerosis: Comment: f/u Dr Obando, L side weakness Code(s): G35 - Multiple sclerosis Plan: Patient?is?on?teriflunomide Stable Follow-up?with??as?recommended Some?left-sided?symptoms,?primarily. (3) Swelling of lower extremity: Comment: left Code(s): M79.89 - Other specified soft tissue disorders Plan: Patient?has?swelling?at?left?foot?and?ankle He?is?using?compression?stockings?and?elevating?his?foot He?has?furosemide I?advised?he?avoid?salt/sodium May?have?some?venous?insufficiency?and?patient?notes?that?he?did?severely?sprain ?his?ankle?quite?some?time?ago?prior?to?the?start?of?his?symptoms. However,?he?also?has?multiple?sclerosis?with?left- sided?symptoms?and?some?this?may?be?neurovascular. Will?follow-up?at?next?visit?and?consider?referral?to?vascular?surgery?if?needed (4) Hyperlipidemia: Code(s): E78.5 - Hyperlipidemia, unspecified Plan: Check?lipids (5) BPH (benign prostatic hyperplasia): Code(s): N40.0 - Benign prostatic hyperplasia without lower urinary tract symptoms Plan: Stable He?is?on?terazosin Follow-up?with?urology?as?recommended (6) Cough: Code(s): R05.9 - Cough, unspecified Plan: Patient?has?intermittent?secretions?and?cough Significant?history?of?smoking?greater?than?20?pack?years? and?likely?greater?than?30?pack?years Lungs?are?clear?today?but?does?have?rather?distant?breath?sounds May?have?some?COPD Checking?chest?x-ray (7) Arthritis of foot: Code(s): M19.079 - Primary osteoarthritis, unspecified ankle and foot Plan: Followed?by?Podiatry Elevate?foot?and?can?use?ice/heat Follow-up?with?podiatry?as?recommend (8) Overactive bladder: Code(s): N32.81 - Overactive bladder (9) Hyperglycemia: Code(s): R73.9 - Hyperglycemia, unspecified (10) Ex-smoker: Comment: quit 2015, 2 PPD x 30 yrs Code(s): Z87.891 - Personal history of nicotine dependence Plan: Likely?greater?than?30?pack?year?history?of?smoking Will?get?low-dose?CT?scan (11) Foot ulceration: Code(s): L97.509 - Non-pressure chronic ulcer of other part of unspecified foot with unspecified severity Plan: Patient?has?lower?extremity?swelling. He?has?excellent?PT?and?DP?pulses?and?warm?toes. This?does?not?appear?to?be?arterial?insufficiency Audelia ent?notes?that?he?had?worn?shoes?that?allowed?his?feet?to?rub?back?and?forth?whi ch?cause?blistering. This?is?already?improving This?appears?to?be?a?singular?incident?on?the?bottoms?of?his?toes?and?is ?already?improving. He?was?given?a?cream?by?his?emts?which?is?helping Continue?current?treatment (12) Laboratory exam ordered as part of routine general medical examination: Code(s): Z00.00 - Encounter for general adult medical examination without abnormal findings Plan: Check?labs Orders: Orders Comprehensive [place]. Panel Fast Today Z00.00 - Encounter for general adult med ical examination without abnormal findings Complete Blood Count Auto Diff Today Z00.00 - Encounter for general adult medical examination without abnormal findings Prostate Specific Antigen Scr Today Z12.5 - Encounter for screening for malignant neoplasm of prostate TSH reflex Free T4 Today Z00.00 - Encounter for general adult medical examination without abnormal findings UA and rflx microscopic Today Z00.00 - Encounter for general adult medical examination without abnormal findings Hemoglobin A1c Today R73.01 - Impaired fasting glucose Microalbumin, Random (w Creat) Today I10 - Essential (primary) hypertension Lipid Panel Today Z00.00 - Encounter for general adult medical examination without abnormal findings XR chest 2V Today R05.9 - Cough, unspecified Referrals Lung Cancer Screening Referral Z87.891 - Personal history of nicotine dependence Medications: Changed From vardenafil 20 mg PO DAILY PRN 30 tabs 2RF sexual activity To vardenafil 20 mg PO DAILY 30 days PRN 30 tabs 2RF sexual activity Coding Level of Care Code New Pt Level 4 (97963) Diagnoses Crohn's disease K50.90 Multiple sclerosis G35 Swelling of lower extremity M79.89 Hyperlipidemia E78.5 BPH (benign prostatic hyperplasia) N40.0 Cough R05.9 Arthritis of foot M19.079 Overactive bladder N32.81 Hyperglycemia R73.9 Ex-smoker Z87.891 Foot ulceration L97.509 Laboratory exam ordered as part of routine general medical examination Z00.00 Additional Codes JING-7 Assessment Billing - JING-7 Assessment Tool: JING-7 Assessment 39104 ([id number])
[2024-04-16 10:38] VITALS: BP 140/70; PULSE 75; RESP 16; TEMP 35.7; O2SAT 97; BMI 32.3
== END 2024-04-16 11:35 | disposition home or self-care (01) ==
PROVIDERS: PCP Internal Medicine; Visit Provider Family Medicine
DX: K50.90 Crohn's disease, unspecified, without complications (principal); G35 Multiple sclerosis; L97.509 Non-pressure chronic ulcer of other part of unspecified foot with unspecified severity; M79.89 Other specified soft tissue disorders; E78.5 Hyperlipidemia, unspecified; N40.0 Benign prostatic hyperplasia without lower urinary tract symptoms; R05.9 Cough, unspecified; M19.079 Primary osteoarthritis, unspecified ankle and foot; N32.81 Overactive bladder; R73.9 Hyperglycemia, unspecified; Z87.891 Personal history of nicotine dependence

== ENCOUNTER → 2024-04-16 10:22 | Outpatient (BNVA) | payer OTHER, MEDICARE, SELFPAY | PROVIDERS: PCP Internal Medicine; Visit Provider Family Medicine | DX: K50.90 Crohn's disease, unspecified, without complications (principal); G35 Multiple sclerosis; M79.89 Other specified soft tissue disorders; N40.0 Benign prostatic hyperplasia without lower urinary tract symptoms; R05.9 Cough, unspecified; M19.079 Primary osteoarthritis, unspecified ankle and foot; N32.81 Overactive bladder; R73.9 Hyperglycemia, unspecified; L97.509 Non-pressure chronic ulcer of other part of unspecified foot with unspecified severity; Z87.891 Personal history of nicotine dependence; Z79.899 Other long term (current) drug therapy | CPT/HCPCS: 96127 ==

== ENCOUNTER 2024-04-17 09:56 | Outpatient (REF) | payer OTHER, MEDICARE, SELFPAY ==
--- NOTE | ~2024-04-17 | XR_ITS ---
EXAMINATION: XR CHEST CLINICAL INFORMATION: Cough, unspecified COMPARISON: CT chest 09/18/2019. TECHNIQUE: 2 views of the chest were obtained. FINDINGS: The cardiac, hilar, mediastinal contours are normal. There is severe emphysema with pulmonary hyperaeration hyperlucency. Generalized thinning of the interstitial markings upper lobe predominant. Suture line noted overlying the left mid and upper lung region from prior left wedge resection. Mild volume loss left lung. Within these confines, lungs are clear. There are no pleural effusions or pneumothorax. There is no focal osseous abnormality. XR/XR chest 2V IMPRESSION: Emphysema and stable postop changes left lung. No superimposed active disease. Electronically signed by: Karthik Sousa MD 06/06/2024 03:54 PM [facility]
[2024-04-17 10:18] LABS: MANUAL DIFF FLAG NO
[2024-04-17 10:55] LABS: Basophils Absolute Auto 0.1 X10*3/uL (0.0-0.2); Basophils Percent Auto 1.3 % (0-2); Eosinophils Absolute Auto 0.1 X10*3/uL (0.0-0.4); Eosinophils Percent Auto 2.9 % (0-4); Hematocrit 44.1 % (42.0-52.0); Imm Gran Abs Auto 0.02 X10*3/uL (0.00-0.03); Imm Gran Pct Auto 0.4 % (0.0-0.4); Lymphocytes Absolute Auto 1.8 X10*3/uL (1.2-4.9); Lymphocytes Percent Auto 40.3 % (20-40); Mean Corpuscular Hemoglobin 33.1 pg (27.0-33.0); Mean Corpuscular Volume 97.4 fL (80.0-98.0); Mean Platelet Volume 10.1 fL (9.4-12.4); Monocytes Absolute Auto 0.6 X10*3/uL (0.1-1.2); Monocytes Percent Auto 13.2 % (2-11); Neutrophils Absolute Auto 1.9 x10*3/uL (2.0-8.3); Neutrophils Percent Auto 41.9 % (45-73); Platelet Count 197 X10*3/uL (160-400); Red Blood Count 4.53 X10*6/uL (4.60-5.80); Red Cell Distribution Width 13.7 % (11.0-16.0); White Blood Count 4.5 X10*3/uL (4.8-10.8)
[2024-04-17 11:04] LABS: Estimated Average Glucose 97 mg/dL; Total Hemoglobin (HGBA1C) 3816.2222 umol/L
[2024-04-17 11:26] LABS: Alanine Aminotransferase 23 U/L (0-40); Albumin Level 4.2 g/dL (3.5-5.0); Alkaline Phosphatase 73 U/L (39-117); Anion Gap 13 (12-20); Aspartate Amino Transferase 26 U/L (5-37); Bilirubin Total 1.1 mg/dL (0.0-1.0); Blood Urea Nitrogen 10 mg/dL (9-16); Calcium 9.4 mg/dL (8.4-10.2); Carbon Dioxide 25 mmol/L (22-29); Chloride 108 mmol/L (96-108); Cholesterol 149 mg/dL (<200); Estimated Glomerular Filt Rate > 60; Glucose Fasting 103 mg/dL (60-99); HDL Cholesterol 51 mg/dL (>40); LDL Cholesterol Calculated 84 mg/dL (<100); Potassium 3.9 mmol/L (3.3-5.1); Sodium 142 mmol/L (135-145); Total Protein 6.9 g/dL (6.5-8.0); Triglycerides 74 mg/dL (<150)
[2024-04-17 11:39] LABS: Prostate Specific Antigen Scr 1.72 ng/mL (<0.05-4.0)
[2024-04-17 11:43] LABS: TSH reflex Free T4 4.49 uIU/mL (0.32-4.0)
[2024-04-17 12:57] LABS: Free T4 (Free Thyroxine) 0.75 ng/dL (0.71-1.85)
== END 2024-04-17 09:57 | disposition home or self-care (01) ==
LOC: HO.XRAY 09:56
PROVIDERS: PCP Family Medicine; Visit Provider Family Medicine
DX: Z00.00 Encounter for general adult medical examination without abnormal findings (principal); R73.01 Impaired fasting glucose; Z12.5 Encounter for screening for malignant neoplasm of prostate; R05.9 Cough, unspecified
CPT/HCPCS: 36415; 71046; 80053; 80061; 83036; 84153; 84439; 84443; 85025

== ENCOUNTER → 2024-04-17 10:19 | Outpatient (BNV) | payer OTHER, MEDICARE, SELFPAY | PROVIDERS: PCP Family Medicine; Visit Provider Radiology Diagnostic Radiology | DX: R05.9 Cough, unspecified (principal) | CPT/HCPCS: 71046 ==

== ENCOUNTER 2024-06-06 14:23 | Outpatient (AMB) | payer OTHER, MEDICARE, SELFPAY ==
--- NOTE | 2024-06-06 14:37 | A.OFFPC_ITS ---
Vital Signs 06/06/24 14:39 Height 6 ft 1 in Weight 243 lb 2 oz BMI 32.1 BP 160/90 H Blood Pressure Location Rt brachial Position Sitting Respiration 16 Pulse 82 Pulse Source Pulse Oximeter Temp 98.2 F Temp Source Oral Pulse Oximetry (%) 96 Oxygen Delivery Method Room Air Intake Visit Reasons: Rsched from 07/07 F/U Chronic Conditions Intake Note: f/u for chronic conditions Allergies No Known Allergies [No Known Allergies*] Allergy (Verified 06/06/24 14:37) Medication List - Last Reconciled 06/06/24 by Prudencio Stroud MD albuterol sulfate 90 mcg/actuation (Ventolin HFA) 1 inh inhalation QID PRN furosemide 40 mg PO DAILY losartan 50 mg PO DAILY 90 days mesalamine 2.4 grams PO DAILY terazosin 10 mg PO BEDTIME 90 days teriflunomide (Aubagio) 14 mg PO DAILY vardenafil 20 mg PO DAILY PRN 30 days vitamin B complex PO Tobacco use date assessed: 04/16/24 Dental Screening Dental Screen Date: 04/16/24 HPI Rsched from 07/07 F/U Chronic Conditions HPI Details 59 y/o male presents for a CPE with f/u labs and health maintenance. Hx of smoking and had sent him for a low-dose CT screen. This does not seem to have been read yet. Has an appt. with pulmonary in a month. Blood pressure today 160/90, 82p. Labs drawn 04/17/24. Reviewed labs with pt. A1c 5.0%. Elevated fasting glucose of 103. Triglycerides 74. TC 149. LDL 84. HDL 51. PSA 1.72. TSH 4.49. Notes hearing changes R ear. HPI Comments History of Present Illness Details Documentation assistance for Prudencio Stroud MD, was provided by Brett Nichole,? Ct Mri Technologist on 06/06/2024 at 3:00 PM EST. I, Dr. Stroud, have read, observed, and verified documentation. [facility] Medical History (Updated 06/06/24 @ 15:05 by Brett Nichole) Personal history of nicotine dependence BPH (benign prostatic hyperplasia) Hyperlipidemia Crohn's disease (~2005) IBS (irritable bowel syndrome) Multiple sclerosis (~2014) Surgical History (Updated 05/22/24 @ 09:54 by Hannah Oden PA-C) History of nasal septoplasty History of bronchoscopy History of vasectomy H/O colonoscopy Family History Father DM (diabetes mellitus) Social History (Updated 04/16/24 @ 10:35 by Eliot Brewster [facility]) Housing: House Patient Tobacco Use Status: Former Tobacco user e-Cigarette/Vaping Use: Never Used Current occupational status: unemployed and retired Cognitive needs: No Hearing needs: No Vision needs: Yes Questionnaire PHQ-9 Over the last 2 weeks, how often have you been bothered by any of the following problems? 1. Little interest or pleasure in doing things: not at all 2. Feeling down, depressed, or hopeless: not at all 3. Trouble falling or staying asleep, or sleeping too much: not at all 4. Feeling tired or having little energy: not at all 5. Poor appetite or overeating: not at all 6. Feeling bad about yourself - or that you are a failure or have let yourself or your family down: not at all 7. Trouble concentrating on things, such as reading the newspaper or watching television: not at all 8. Moving or speaking so slowly that other people could have noticed. Or the opposite - being so fidgety or restless that you have been moving around a lot more than usual: not at all 9. Thoughts that you would be better off or of hurting yourself in some way: not at all Total score: 0 Source: Developed by Drs. Markos Albert, Agueda Auguste, Cristopher Ruiz and colleagues, with an educational viridiana from [employer]. Thrive Questionnaire Date Thrive assessed: 04/16/24 I am a: Patient What is your living situation today?: I have a steady place to live Within the past 12 months, did the food you bought not last and you didn't have the money to get more?: I choose not to answer this question Within the past 12 months, did you worry whether your food would run out before you got money to buy more?: Never true Do you have trouble paying for medicines?: No Do you have trouble getting transportation to medical appointments?: No Do you have trouble paying your heating and electricity bill?: No Do you have trouble taking care of your child, family member or friend?: No Do you have trouble with day-to-day activities such as bathing, preparing meals, shopping, managing finances, etc.?: No Are you currently unemployed and looking for a job?: I choose not to answer this question Are you interested in more education?: No Please select the resources that you would like help with: None Currently or been in a relationship where the following occur: I choose not to answer THRIVE Score: 0 AUDIT C Alcohol Use Questionnaire (AUDIT-C) 1. How often do you have a drink containing alcohol?: 4 or more times a week Total Score: 4 JING-7 AMB Questionnaire JING-7 Date JING - 7 assessed: 04/16/24 Feeling nervous, anxious, or on edge: 0 = Not at all Not being able to stop or control worryin = Not at all Worrying too much about different things: 0 = Not at all Trouble relaxin = Not at all Being so restless that it is hard to sit still: 0 = Not at all Becoming easily annoyed or irritable: 1 = Several days Feeling afraid as if something awful might happen: 0 = Not at all Total JING-7 score (0-4 normal; 5-9 mild; 10-14 moderate; 15-21 severe): 1 Source: Developed by Drs. Markos Albert, Agueda Auguste, Cristopher Ruiz and colleagues, with an educational viridiana from [employer]. Review of Systems Const Denies chills, Denies fatigue, Denies fever(s), Denies headache(s) and Denies weakness Eyes Denies change in vision ENT Denies dizziness and Denies headache(s) Card Denies dyspnea Resp Denies cough, Denies dyspnea, Denies wheezing and Denies other (shortness of breath) GI Denies abdominal pain, Denies melena, Denies hematochezia, Denies change in bowel habits, Denies dyspepsia and Denies nausea Denies hematuria and Denies dysuria Musc Denies numbness and Denies tingling Skin/Breast Denies rash, Denies unusual bruising and Denies wounds Neuro Denies dizziness, Denies headache(s), Denies numbness, Denies Sensory deficit (Neuro), Denies tingling and Denies weakness Psych Denies anxiety and Denies depression Endo Denies fatigue Syd/Lymph Denies easy bleeding and Denies easy bruising Aller/Immun Denies wheezing Physical exam (Primary Care) Vital Signs: Last Vital Signs Temp 98.2 F 06/06/24 14:39 Pulse 82 06/06/24 14:39 Resp 16 06/06/24 14:39 BP 160/90 H 06/06/24 14:39 Pulse Ox 96 06/06/24 14:39 Oxygen Delivery Method Room Air 06/06/24 14:39 BMI result Body Mass Index 32.1 Tobacco/Smoking Status: Tobacco use Status Tobacco use date assessed 04/16/24 06/06/24 14:41 Patient Tobacco Use Status Former Tobacco user 06/06/24 14:41 e-Cigarette/Vaping Use Never Used 06/06/24 14:41 PHQ-9: PHQ-9 Score PHQ-9: Total score 0 06/06/24 14:41 Thrive Assessment: Date of Thrive Assessment Date Thrive assessed 04/16/24 06/06/24 14:41 Currently or been in a relationship where the following occur: I choose not to answer Const General: well developed; No acute distress Nutritional Appearance: well nourished Orientation/consciousness: patient oriented x3 HENMT Head: Yes normocephalic and Yes atraumatic Ears: hearing grossly normal bilaterally and TM's normal bilaterally General nose exam: Normal external nose present and Normal nares present Mouth: Normal oral and palatal mucosa present and moist mucous membranes Teeth and gingiva: dentition normal Throat: Yes posterior oropharynx normal Eyes General: appearance normal, both eyes and all related structures Pupils: Equal, round and reactive pupils present EOM: EOMs intact bilaterally Neck Neck: Yes normal visual inspection, Yes no lymphadenopathy and Yes trachea midline Thyroid: Thyroid normal Carotids: no bruits Lymphatic: no lymphadenopathy noted Chest Chest palpation & inspection: normal inspection of the chest Resp Effort & Inspection: normal respiratory effort Auscultation: clear to auscultation bilaterally Cardio Rate: regular rate Rhythm: regular rhythm Heart sounds: S1 normal heart sound present, S2 normal heart sound present, no gallops, no murmurs and no rubs Bruits: no abdominal aortic bruits and no carotid bruits GI Palpation (GI): No Abdominal aortic bruit present, Soft to palpation, nontender, No hepatosplenomegaly present and No Rebound tenderness present Auscultation: normal bowel sounds General: Yes no CVA tenderness Back/Spine/Pelvis Back: no CVA tenderness Cervical Spine: cervical ROM normal and No Cervical spine tenderness Thoracic/Lumbar Spine: thoraco-lumbar ROM normal, No pain with thoraco-lumbar ROM, No thoracic spinal tenderness and No lumbar spinal tenderness Skin Lesions: no lesions Rashes: no rashes Trauma: no lacerations or abrasions Wounds: no wounds Nails: normal Neuro General: patient oriented x3 and gait normal Cranial nerves: Yes Equal, round and reactive pupils present Cognition (Neuro): normal cognition Gait exam (Neuro): Normal gait present Motor exam (neuro): 5/5 motor strength present throughout Sensory Exam: No Sensory deficit (Neuro) Deep tendon reflexes (DTR's): Right patellar reflex intensity grade: 2+ and Left patellar reflex intensity grade: 2+ Extrem General: Yes normal to inspection and No edema Psych Appearance: grossly normal Affect: normal affect Attitude: cooperative Thought process: Normal thought process present Coding Level of Care Code Est Pt Level 3 (67224) Est Pt Prev Care 40-64y(85239) Diagnoses Adult general medical exam Z00.00 Personal history of nicotine dependence Z87.891 Multiple sclerosis G35 Hypertension I10 Change in hearing H91.90 Elevated TSH R79.89 Screening for prostate cancer Z12.5 Screening for colon cancer Z12.11 Assessment & Plan Assessment & Plan (1) Adult general medical exam: Code(s): Z00.00 - Encounter for general adult medical examination without abnormal findings Category: Medical Plan: 59-year-old?male?presents?for?complete?physical?exam (2) Personal history of nicotine dependence: Comment: (2ppd x 30yrs, 60pyh - quit 2014) Code(s): Z87.891 - Personal history of nicotine dependence Category: Medical Plan: Had?ordered?chest?x- ray?but?this?has?not?been?read?yet.??Asking?the?office?to?check?on?the?status?of ?this He?also?has?a?low-dose?CT?scan?scheduled?in?June He?has?an?appointment?with?pulmonology (3) Multiple sclerosis: Onset Date: ~2014 Comment: f/u Nabil Rivera side weakness Code(s): G35 - Multiple sclerosis Category: Medical Plan: Followed?by? Stable (4) Hypertension: Code(s): I10 - Essential (primary) hypertension Category: Medical Plan: Blood?pressure?is?consistently?in?hypertensive?range Start?losartan Will?follow-up?in?about?2?months (5) Change in hearing: Code(s): H91.90 - Unspecified hearing loss, unspecified ear Category: Medical Plan: Audiology?testing?ordered (6) Elevated TSH: Code(s): R79.89 - Other specified abnormal findings of blood chemistry Category: Medical Plan: Mildly?elevated?TSH?level Free?T4?is?within?normal?range Will?repeat?thyroid?hormone?levels (7) Screening for prostate cancer: Code(s): Z12.5 - Encounter for screening for malignant neoplasm of prostate Category: Medical Plan: PSA?was?within?normal?range. He?is?followed?by?Urology?and?has?an?upcoming?appoint (8) Screening for colon cancer: Code(s): Z12.11 - Encounter for screening for malignant neoplasm of colon Category: Medical Plan: Patient?had?a?colonoscopy?with?Dr. Galindo in?2022 Follow-up?with?automatic stacker?as?recommended Orders: Orders Free T4 (Free Thyroxine) Today E03.9 - Hypothyroidism, unspecified, R79.89 - Other specified abnormal findings of blood chemistry Thyroid Stimulating Hormone Today E03.9 - Hypothyroidism, unspecified, R79.89 - Other specified abnormal findings of blood chemistry Triiodothyronine T3 Total Today E03.9 - Hypothyroidism, unspecified, R79.89 - Other specified abnormal findings of blood chemistry Basic Metabolic Panel Today I10 - Essential (primary) hypertension, Z00.00 - Encounter for general adult medical examination without abnormal findings Microalbumin, Random (w Creat) Today I10 - Essential (primary) hypertension Referrals Audiology Referral H91.90 - Unspecified hearing loss, unspecified ear Medications: New losartan 50 mg PO DAILY 90 days 90 tabs 3RF
[2024-06-06 14:39] VITALS: BP 160/90; PULSE 82; RESP 16; TEMP 36.8; O2SAT 96; BMI 32.1
== END 2024-06-06 15:14 | disposition home or self-care (01) ==
PROVIDERS: PCP Internal Medicine; Visit Provider Family Medicine
DX: Z00.00 Encounter for general adult medical examination without abnormal findings (principal); I10 Essential (primary) hypertension; G35 Multiple sclerosis; Z87.891 Personal history of nicotine dependence; R79.89 Other specified abnormal findings of blood chemistry; H91.93 Unspecified hearing loss, bilateral; Z12.5 Encounter for screening for malignant neoplasm of prostate; Z12.11 Encounter for screening for malignant neoplasm of colon

== ENCOUNTER 2024-06-27 10:47 | Outpatient (AMB) | payer OTHER, MEDICARE, SELFPAY ==
--- NOTE | 2024-06-27 07:54 | MHC.OFFVIS ---
Intake Visit Reasons: Former Smoker Allergies No Known Allergies [No Known Allergies*] Allergy (Verified 06/06/24 14:37) HPI HPI Former Smoker: Details: Initial visit for this 59yo former smoker with a 40PYH. Patient started smoking at age 10 for 40 years at 1ppd. He quit in 2014. . Denies marijuana use. Denies second hand smoke exposure. 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 . Denies known family history of lung cancer. Denies personal history of cancers. Denies chest CT in last year. History of bronchoscopy and LL wedge [place] [address] Alvarado For left lung mass- benign. Post obstructive pneumonia. . Denies recent travel outside the [place]. Denies recent respiratory illness or recent hospitalization for respiratory issues. . Denies fever, chills, new/worsening cough, hemoptysis, hoarseness or dysphagia. Denies significant chest pain, significant dyspnea or unintentional weight loss. Patient Lung Cancer Screening Questionnaire reviewed with patient by provider. . Shared Decision Making Completed. Patient meets criteria. Discussed in detail with patient, the risk vs benefit of LDCT screening. Patient consents to proceed with scan. Discussed and encouraged continued smoking cessation. [facility] Medical History (Updated 06/27/24 @ 10:48 by Hannah Oden PA-C) Personal history of nicotine dependence BPH (benign prostatic hyperplasia) Hyperlipidemia Crohn's disease (~2005) IBS (irritable bowel syndrome) Multiple sclerosis (~2014) Surgical History (Updated 06/27/24 @ 10:55 by Hannah Oden PA-C) History of lung surgery History of nasal septoplasty History of bronchoscopy History of vasectomy H/O colonoscopy Family History Father DM (diabetes mellitus) Social History (Updated 06/27/24 @ 10:48 by Hannah Oden PA-C) Housing: House Patient Tobacco Use Status: Former Tobacco user Years Smoked: (onset 12yo, 1ppd x 40yrs, 40pyh - quit 2014) e-Cigarette/Vaping Use: Never Used Current occupational status: unemployed and retired Cognitive needs: No Hearing needs: No Vision needs: Yes Assessment & Plan Assessment & Plan (1) Personal history of nicotine dependence: Comment: (onset 12yo, 1ppd x 40yrs, 40pyh - quit 2014) Code(s): Z87.891 - Personal history of nicotine dependence Category: Medical Plan: - SDM visit completed today in office. - Patient meets criteria for LDCT for lung cancer screening purposes and is asymptomatic. - Smoking cessation counseling offered. Patients can always call [phone]. - Will arrange for a LDCT scan of the chest for screening purposes at [facility]. - Risks, benefits, and alternatives were discussed in detail and the patient agrees to proceed. - Risks discussed include but are not limited to: radiation exposure, anxiety during testing and while awaiting results, false negatives, false positives and possibility of additional intervention such as further imaging or surgical procedures for benign disease. - Benefits are obviously detection of lung cancer at an early stage which can lead to improved outcomes. - Discussed the importance of screening program compliance with adherence to yearly LDCT scan as scheduled - or sooner interval scans for personalized screening regimen. - Discussed follow up plan. Our office will send a letter discussing results and if needed set up phone call and office visit based on CT findings. - Patient educated on results categorization and the management decisions for suspicious findings potentially found on the screening LDCT scan. Any patient with a Lung RADS score of 3 or 4 will be reviewed by a multidisciplinary team at [facility] to form a plan of action in regards to scan findings. - If further work up is warranted for a suspicious lung finding this will be followed by the Lung Cancer Screening program in conjunction with the Thoracic Surgery Department at [facility]. - A copy of the office note and LDCT will be sent to the patient's PCP - as well as documentation on any associated further plans of care. - Incidental findings on LDCT are the PCP's responsibility. These findings are indicated with an S finding on the LDCT Assessment. A note discussing the findings will be sent to the PCP who is then responsible for further management. - All questions answered.? Coding Level of Care Code Lung Cancer Screening G0296 Diagnoses Personal history of nicotine dependence Z87.891
--- OUTSIDE RECORDS SUMMARY | 2024-07-02 07:44 | XMS_ITS ---
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 Name Role Phone Prudencio Stroud MD Primary Care Provider Nathaniel feliciacharlette Pavithra Reynoso Unavailable [phone] Allergies No Known Allergies Results Component Value Reference Range Notes X ray : Ankle, left 3V Reviewed date:10/15/2023 06:03:58 PM Interpretation:See Examination above Performing Lab: Notes/Report: See Examination above X ray : Foot, left 3V Reviewed date:10/15/2023 06:03:42 PM Interpretation:See Examination above Performing Lab: Notes/Report: See Examination above REASON FOR VISIT Ankle pain, Foot pain Medications Medication SIG (Take, Route, Fr equency, Duration) Notes Start Date End Date Status AFO-fixed . 1 . Wear daily for . 10/15/2023 Active Vitamin D3 Active Aubagio 14 MG 1 tablet Orally Once a day Not-Taking Probiotic Not-Taking Physical Therapy . . . 2-3x/week for 3-4 weeks Not-Taking Vitamin B 12 Active Furosemide 40 MG 1 tablet Orally Once a day Active Mesalamine 1.2 GM 2 tablets Orally Once a day Active Terazosin HCl 10 MG 1 capsule at bedtime Orally Once a day Active Social History Tobacco Use: Social History Observation Description Date Details (start date - stop date) Former Smoker NA - NA Tobacco Use/Smoking Question Answer Notes Are you a: former smoker Additional Findings: Tobacco Non-User Current no n-smoker Alcohol Screen Question Answer Notes Did you have a drink containing alcohol in the p ast year? Yes Points 0 Interpretation Negative Tobacco use other than smoking: Question Answer Notes Are you an other tobacco user? No Problems Problem Type SNOMED Code ICD Code Onset Dates Problem Status W/U Status Risk Notes Problem Osteoarthritis of midtarsal joint of left foot ([id number] ) Osteoarthritis of midtarsal joint of left foot (M19.072) Active confirmed Problem 45402397 Other chronic pain (G89.29) Active confirmed Vital Signs Height 6 ft 1 in in 10/15/2023 Weight 235 lbs 10/15/2023 BMI 31.00 kg/m2 10/15/2023 Encounters Encounter Location Date Provider Diagnosis [facility] [address] [place] [address] 10/15/2023 Pavithra Reynoso Pain in left foot M79.672 ; Osteoarthritis of midtarsal joint of left foot M19.072 ; Pain in left ankle and joints of left foot M25.572 ; Bursitis of left foot M77.52 ; Left foot drop M21.372 and Other chronic pain G89.29 Assessments Encounter Date Diagnosis (ICD Code) Assessment Notes Treatment Notes Treatment Clinical Notes Section Notes 10/15/2023 Pain in left foot (ICD-10 - M79.672) 10/15/2023 Osteoarthritis of midtarsal joint of left foot (ICD-10 - M19.072) 10/15/2023 Pain in left ankle and joints of left foot (ICD-10 - M25.572) 10/15/2023 Bursitis of left foot (ICD-10 - M77.52) 10/15/2023 Left foot drop (ICD-10 - M21.372) 10/15/2023 Other chronic pain (ICD-10 - G89.29) Plan Of Treatment Medication Medication Name Sig Start Date Stop Date Notes AFO-fixed . 1 . Wear daily for . 10/15/2023 Next Appt Details Follow Up: prn, Reason: Provider Name:Pavithra Reynoso , 07/07/2024 11:00:00 AM, [address] [place], [address], Progress Notes * Richard OLIVERA IIIDOB:1964 (58 yo M)Acc No.[id number]:10/15/2023 Progress Notes Patient:Richard Cerrato Provider:?Pavithra Reynoso DPM :1965???Age:58 Y???Sex:Male David e:10/15/2023 Address:[address] [place] [address], [facility] Pcp:Kayla Galaviz MD Subjective: * Chief Complaints: * ???Ankle painFoot pain * HPI: ???Ankle Pain:?Nature:?aching, bruising, pulling, ripping/tearing/searing, sharp, swelling, tenderness, throbbing.?Location:?Outside aspect of the Left ankle.?Duration: ?, several years.?Onset/Cause:?trauma [pt fell?].?Course:?worse.?Aggrevated by:?any pressure, standing, walking.?Treatments:?rest/alter normal daily activity, ice.?Foot Pain:?Nature:?aching, stiffness, swelling, throbbing.?Location:?Top, Midfoot, LEFT.?Duration:?, several years.?Course:?worse.?Treatments:?rest/alter normal daily activity.? * ROS:?General/Constitutional:?Nausea?denies.?Vomiting?denies.?Hunger Thirst?denies.?Loss appetite?denies.?Chills?denies.?Fatigue?denies.?Fever?denies.?Night Sweats?denies.?Unexplained weight loss?denies.?Unexplained weight gain?denies.?HEENTM:?Dentures?denies.?Dizziness?denies.?Glasses/contacts?denies.?Retinopathy?de nies.?Blurred/double vision?denies.?TMJ?denies.?Discharge/drainage?denies.?Implants?denies.?Sore throat?denies.?Dental implants?denies.?Hard of hearing ?denies.?Difficulty chewing/swallowing/speaking?denies.?Nose bleeds?denies.?Sore mouth?denies.?Respiratory:?On Oxygen?denies.?Pneumonia/pleurisy?denies.?Bronchitis?denies.?Emphysema?denies.?C oughing?admits.?Cough blood?denies.?Shortness of breath?denies.?Wheezing?denies.?Cardiovascular:?Pacemaker?denies.?MVP?denies.?WPW?denies.?CHF?denies.?Heart attack?denies.?Septal defect?denies.?Rapid beat?denies.?Chest pain ?denies.?Atrial Fib.?denies.?Murmur/Palpitations?denies.?Gastrointestinal:?Hemorrhoids?denies.?Stomach/Abdominal pain?denies.?Dark blood stool?denies.?Irritable bowel ?admits.?Constipation?denies.?Diarrhea?admits.?Hematology:?Swelling?denies.?Clots?denies.?Varicose Veins?denies.?Bruising?denies.?Bleeding problem?denies.?Genitourinary:?Blood urine?denies.?Frequent/Painfu/urination/bladder control?admits.?Kidney stones?denies.?Infection (UTI)?denies.?Nephropathy?denies.?sex trans dis (STD)?denies.?Prostate?denies.?Musculoskeletal:?Hammertoes?denies.?Bunions?denies.?Back Pain?denies.?Muscle Cramps/ Resting?denies.?Muscle cramps / walking?denies.?Generalized aches and pains?admits.?Weakness?admits.?Integ.:?Easley?denies.?Scars?denies.?Corns/calluses?denies.?Ingrown nails?denies.?Painful nails?denies.?Open Sores?denies.?Rashes?denies.?Neurologic:?Difficulty sleeping?admits.?Brain disorder?denies.?Numbness?denies.?Balance trouble?admits.?Confusion?denies.?Fainting/blackouts?denies.?Tingling?admits.?Tr emors?denies.? * Medical History:? * Surgical History:?nose 2000l jack surgery 2019septoplasty 2000 * Hospitalization/Major Diagno stic Procedure:?Denies Past Hospitalization * Family History:?Mother: dece ased, poor circulation, diagnosed with Family history of arthritis.?Father: , diagnosed with Diabetic - NIDDM, Unspecified essential hypertension, Unspecified heart disease.? Grandmother with cancer, unspecified relation. * Social History:?Tobacco Use:?Tobacco Use/Smoking?Are you a:?former smoker ?Additional Findings: Tobacco Non-User?Current non-smoker ?Tobacco use other than smoking?Are you an other tobacco user??No ???Drugs/Alcohol:?Drugs?Have you used drugs other than those for medical reasons in the past 12 months??No ?Alcohol Screen?Did you have a drink containing alcohol in the past year??Yes ?Points?0 ?Interpretation?Negative ???Miscellaneous:?Caffeine: yes, frequency: 2-3 cups per day. ?no Children. ?Exercise: yes, walking. ?Marital status: . ?Occupation: Disabled/Retired. * Medications:?TakingTerazosin HCl 10 MG Capsule 1 capsule at bedtime Orally Once a dayFurosemide 40 MG Tablet 1 tablet Orally Once a dayMesalamine 1.2 GM Tablet Delayed Release 2 tablets Orally Once a dayVitamin B 12 Vitamin D3 Taking Terazosin HCl 10 MG Capsule 1 capsule at bedtime Orally Once a dayTaking Furosemide 40 MG Tablet 1 tablet Orally Once a dayTaking Mesalamine 1.2 GM Tablet Delayed Release 2 tablets Orally Once a dayTaking Vitamin B 12 Taking Vitamin D3 Not-Taking/PRNAubagio 14 MG Tablet 1 tablet Orally Once a dayProbiotic Physical Therapy . . . . 2-3x/weekMedication List reviewed and reconciled with the patientNot-Taking/PRN Aubagio 14 MG Tablet 1 tablet Orally Once a dayNot-Taking/PRN Probiotic Not-Taking/PRN Physical Therapy . . . . 2-3x/weekMedication List reviewed and reconciled with the patient * Allergies:?N.K.D.A.yes[Aller gies Verified] Objective: * Vitals:?Ht: 6 ft 1 in, Wt:23 5, BMI:31.00, Shoe size:13. * Examination: ???General Examination: ?GENERAL APPEARANCE:?pleasant, alert, well nourished, well developed, well hydrated, with good attention to hygene/body habitus, and in no acute distress.?ORIENTED:?person,place, and time.?Neurological: ?SENSORY:?Neurological exam demonstrates pop lateral left ankle and rearfoot--along course of peroneal tendon.?TINEL'S COMPRESSION:?Negative tarsal tunnel, dex pedis, and medial calcaneal nerves B/L.?BABINSKI REFLEX:?absent.?Neuroma Pain: ?PALPATION:?No interspace pain noted on palpation.?Vascular: ?DP PULSES:?2/4, B/L.?PT PULSES:? 1/4, B/L.?CAPILLARY FILL TIME:?3 secs. per digit, B/L.?SKIN TEMPERTURE GRADIENT OF THE LOWER EXTERMITIES:?warm to cool, proximal to distal, B/L.?HAIR GROWTH/TEXTURE/ELASTICITY/TURGOR:?normal, B/L.?PIGMENTATION:?normal, B/L.?EDEMA:?no edema.?TELANGECTASIA:?absent.?VARICOSITIES:?absent.?Dermatologic: ?SKIN FINDINGS:?Skin exam reveals normal texture, elasticity, and tugor. There are no masses. The interspaces are clear, B/L .?Orthopedic: ?MUSCLE STRENGTH:?5/5 all groups in a symmetrical fashion , B/L.?GAIT ABNORMALITY:?pronated, abducted, B/L.?FOOT MORPHOLOGY:? Pes Planus structure, B/L, Dropfoot, LEFT.?DIGITAL DEFORMITIES:?Digital contracture, PIPJ, 2-5 B/L, incompl-reducible with WB, or to push-up test, no over, nor underlapping.?X-Rays - IMAGING REPORT: ?Clinical Indication(s):?Evaluate for Fracture , Evaluate Biomechanical Deformity.?Views:?3 views of Ankle , 3 views of Foot , LEFT.?Findings:?normal bone and soft tissue density consistent for patients age and sex , dorsal degenerative changes of the tarsal joints , asymmetrical Ankle joint space narrowing , medial gutter , lateral gutter.?Foot structure:?reveals excess pronation with , anterior break in cyme line.?Digits:?show asymmetrical joint space narrowing at the PIPJ consistent with clinical finding of hammertoe deformity.?Fracture:?Negative fNew fractures identified.? Assessment: * Assessment: 1.?Pain in left foot - M79.6 72?2.?Osteoarthritis of midtarsal joint of left foot - M19.072 (Primary)?3.?Pain in left ankle and joints of left foot - M25.572?4.?Bursitis of left foot - M77.52?5.?Left foot drop - M21.372?6.?Other chronic pain - G89.29? Plan: * Treatment: 2.?Pain in left ankle and florin ints of left foot?Imaging: X ray : Ankle, left 3V?See Examination above 3.?Left foot drop? Start AFO-fixed Ankle-Foot Orthotic, ., 1, ., Wear daily, ., 1, Refills 0.?? * Procedure Codes:?48466 X-RAY EXAM OF LEFT ANKLE 3V, Modifiers: 26 , [id number] X- RAY EXAM OF LEFT FOOT 3V, Modifiers: 26 , LT * Preventive Medicine:? ??Counseling:?Discussion:?-04: Office or other outpatient visit for the evaluation and management of a new patient, which required a medically appropriate history and/or examination and MODERATE level of DECISION MAKING for: 1 OR MORE CHRONIC PROBLEM(S) THATS WORSENING, 2 STABLE CHRONIC PROBLEMS, A NEWLY DIAGNOSED PROBLEM WITH UNCERTAIN PROGNOSIS, AN ACUTE COMPLICATED INJURY WITH MULTIPLE TREATMENT OPTIONS, OR AN ACUTE PROBLEM WITH ACCOMPANYING SYSTEMIC SYMPTOMS, THAT POSE(S) A MODERATE RISK OF MORBIDITY. THIS CONDITION MAY ALSO INCLUDE RX DRUG MANAGEMENT, OR A DECISON FOR MINOR SURGERY. The visit on the day of the encounter encompassed interpreting the data and educating the patient as to the nature of their condition, treatment options available according to their individual PMH, meds, allergies, and overall health/living conditions, as well as any potential risks or complications that may occur from a failure to adhere to, and participate in, the recommended course of therapy. The discussion included a complete verbal, and/or written explanation of the examination results, any x-rays taken, the proposed diagnosis, and outline of the treatment plan. A schedule for future care needs was also explained. The patient verbalized an understanding of the instructions at this time and agreed to be an active participant in their treatment. If the patient should think of any questions or concerns after the visit, I have encouraged the patient to call the office.?Ankle Pain:?I explained to the patient the possible etiologies of their Ankle Pain, including foot type/shoegear/activity level/exercise routine and the risks/benefits of all the different treatment options for pain including: No treatment at all, Rest, Ice, NSAIDs(only if well tolerated after meals), New/supportive Shoegear, Strappings and Tapings, Foot/Ankle AFO Bracing, Stretching exercises, Deep Tissue Massage, Heel cups/cushions, Arch support/shoe inserts, Custom orthoses, Topical analgesics including Aspercream/Voltaren gel, Night splints for am stiffness, Physical Therapy, EPAT/ESWT, Interfil injection therapy. Advantages and disadvantages of each option were discussed and the patients questions re: shoegear, custom vs prefabricated inserts, activity level, PO vs Topical medications (and their respective potential complications/drug interactions/side effects), and consistency in home treatment regimens for optimal success were answered to their verbally confirmed satisfaction. recomm AFO brace- rx given pt referred to [facility].?Arthritis:?The patient was counseled on the various etiologies for their Arthritis including genetic, history of injury or trauma, abnormal foot biomechanics leading to excessive joint wear, and use/overuse. We discussed the various treatment options from no treatment, to topical analgesics such as Biofreeze gel, Aspercream, Voltaren gel, Lidoderm patches, CBD oils, THC creams, and Custom-compounded topical cream preparations to natural oral products such as Glucosamine Sulfate/Chondroitin/MSM/Collegen to analgesic Tylenol, to anti-inflammatory medications such as Ibuprofen/Naproxen, and the use of oral steroids if needed. Cardiac, Kidney, and GI issues were discussed RE: potential complications of oral anti-inflammatories. We discussed several other treatment options consisting of accom shoes, supportive innersoles, AFO bracing/support, cortisone injection therapy, and surgical resection of the arthritic joint(s) or fusion reconstruction if necessary. We discussed the advantages and disadvantages of conservative (vs) surgical treamtents including pain relief, improved function/activities of daily life, return to exercise to failure, expense, systemic complications, infection, [id number], prolongued postop course. Patient questions re: the various treatment options available, their successes and potential failures, and long term care pharmacist effects were discussed and the answers were verbally confirmed understood, The Pt. was counseled on the x-rays,treatment options, and the importance of following all homecare instructions.? * Follow Up:?prn * Images: * Sign off status: Completed Addendum: * ? true * Provider:Otis Reynoso DPM Date:?2023 Generated for Printi ng/Faxing/eTransmitting on:?07/02/2024 07:44 AM EST History and Physical Notes * HPI (History of Present Illness) Category Sub-Category Detail Notes Category Not es Ankle Pain Duration: , several years Nature: aching, bruising, pu lling, ripping/tearing/searing, sharp, swelling, tenderness, throbbing Treatments: rest/alter normal da amira activity, ice Course: worse Location: Outside aspect of th e Left ankle Onset/Cause: trauma [pt fell ] Aggravated by: any pressure, standi ng, walking Foot Pain Nature: aching, stiffness, swelling, throbbing Location: Top, Midfoot, LEFT Duration: , several years Course: worse Treatments: rest/alter normal da amira activity Examination Category Sub-Category Detail Notes Category Not es Neuroma Pain PALPATION: No interspace pain noted on palpation Neurological SENSORY: Neurological exa m demonstrates pop lateral left ankle and rearfoot--along course of peroneal tendon BABINSKI REFLEX: absent TINEL'S COMPRESSION: Negative tarsal constanza viviana, dex pedis, and medial calcaneal nerves B/L Dermatologic SKIN FINDINGS: Skin exam reveal s normal texture, elasticity, and tugor. There are no masses. The interspaces are clear, B/L Orthopedic GAIT ABNORMALITY: pronated, abducted, B/L FOOT MORPHOLOGY: Pes Planus structure , B/L, Dropfoot, LEFT DIGITAL DEFORMITIES: Digital contracture , PIPJ, 2-5 B/L, incompl-reducible with WB, or to push-up test, no over, nor underlapping MUSCLE STRENGTH: 5/5 all groups in a symmetrical fashion , B/L General Examination GENERAL APPEARANCE: pleasant , alert, well nourished, well developed, well hydrated, with good attention to hygene/body habitus, and in no acute distress ORIENTED: person,place, and ti me Vascular DP PULSES(B): 2/4, B/L PT PULSES(B): 1/4, B/L CAPILLARY FILL TIME: 3 secs. per digit, B/L TEMPERTURE GRADIENT(C): warm to cool, pr oximal to distal, B/L TROPHIC CONDITION-TEXTURE/ELASTICITY/TURGOR/HAIR GROWTH(B): normal, B/L EDEMA(C): no edema TELANGECTASIA: absent VARICOSITIES: absent PIGMENTATION: normal, B/L X-Rays - IMAGING REPORT Findings: normal b one and soft tissue density consistent for patients age and sex , dorsal degenerative changes of the tarsal joints , asymmetrical Ankle joint space narrowing , medial gutter , lateral gutter Fracture: Negative fNew fractu res identified Digits: show asymmetrical florin int space narrowing at the PIPJ consistent with clinical finding of hammertoe deformity Foot structure: reveals excess prona tion with , anterior break in cyme line Views: 3 views of Ankle , 3 views of Foot , LEFT Clinical Indication(s): Evaluate for Fra cture , Evaluate Biomechanical Deformity
--- OUTSIDE RECORDS SUMMARY | 2024-07-02 07:44 | XMS_ITS ---
Author Organization [facility] Address [address] [place] [address] Care Team Providers Care Section Beamer Name Role Phone Prudencio Stroud MD Primary Care Provider Nathaniel Reynoso Pavithra Unavailable [phone] Allergies Allergen (clinical drug ingredient) Drug/Non Drug Allergy documented on EMR Reaction Allergy Type Onset Date Status Seasonale Unknown Drug Allergy Active REASON FOR VISIT Pcp-12/13, Ankle pain, Foot pain, Swelling Medications Medication SIG (Take, Route, Frequency, Duration) Notes Start Date End Date Status AFO-fixed . 1 . Wear daily for . 10/15/2023 Active Vitamin D3 Active Probiotic Not-Taking Aubagio 14 MG 1 tablet Orally Once a day Not-Taking Physical Therapy . . . 2-3x/week for 3- 4 weeks 10/03/2018 Not-Taking Furosemide 40 MG 1 tablet Orally Once a day Active Compression Stockings 20-30mm Hg 1 pair wear daily for 30 days Active Terazosin HCl 10 MG 1 capsule at bedtime Orally Once a day Active Vitamin B 12 Active Mesalamine 1.2 GM 2 tablets Orally Onc e a day Active Social History Tobacco Use: Social History Observation Description Date Details (start date - stop date) Former Smoker NA - NA Tobacco Use/Smoking Question Answer Notes Are you a: former smoker Additional Findings: Tobacco Non-User Current no n-smoker Tobacco use other than smoking: Question Answer Notes Are you an other tobacco user? No Vital Signs Height 6ft1in in 02/04/2024 Weight 238 lbs 02/04/2024 BMI 31.4 kg/m2 02/04/2024 Blood pressure systolic 128 mm Hg 02/04/20 24 Blood pressure diastolic 70 mm Hg 024 Encounters Encounter Location Date Provider Diagnosis [facility] [address] [address] 02/04/2024 Pavithra Reynoso Osteoarthritis of midtarsal joint of left foot M19.072 ; Edema, lower extremity R60.0 ; Pain in left foot M79.672 ; Pain in left ankle and joints of left foot M25.572 ; Bursitis of left foot M77.52 ; Left foot drop M21.372 and Other chronic pain G89.29 Assessments Encounter Date Diagnosis (ICD Code) Assessment Notes Treatment Notes Treatment Clinical Notes Section Notes 02/04/2024 Osteoarthritis of midtarsal joint of left foot (ICD-10 - M19.072) 02/04/2024 Edema, lower extremity (ICD-10 - R60.0) 02/04/2024 Pain in left foot (ICD-10 - M79.672) 02/04/2024 Pain in left ankle and joints of left foot (ICD-10 - M25.572) 02/04/2024 Bursitis of left foot (ICD-10 - M77.52) 02/04/2024 Left foot drop (ICD-10 - M21.372) 02/04/2024 Other chronic pain (ICD-10 - G89.29) Plan Of Treatment Medication Medication Name Sig Start Date Stop Date Notes Compression Stockings 20-30mm Hg 1 pair wear daily for 30 days Next Appt Details Follow Up: 6 Months, Reason: Provider Name:Pavithra Susannah Reynoso , 07/07/2024 11:00:00 AM, [address] [place] [address], [phone], Progress Notes * JAROD WORTHINGTON, Richard BDOB:1964 (58 yo M)Acc No.[id number]:[birth year]24 Progress Note Patient:?Richard Greene III B Provider:?Pavithra Reynoso DPM :1965???Age:58 Y???Sex:Male David e:02/04/2024 Address:[address] [place], [place] [id number] Pcp:Kayla Galaviz MD Subjective: * Chief Complaints: * ???Pcp-12/13Ankle painFoot p ainSwelling * HPI: ???Ankle Pain:?Nature:?aching, bruising, pulling, ripping/tearing/searing, sharp, swelling, tenderness, throbbing.?Location:?Outside aspect of the Left ankle.?Duration: ?, several years.?Onset/Cause:?trauma [pt fell?].?Course:?, improved.?Aggrevated by:?any pressure, standing, walking.?Treatments:?rest/alter normal daily activity, ice.?Foot Pain:?Nature:?aching, stiffness, swelling, throbbing.?Location:?Top, Midfoot, LEFT.?Duration:?, several years.?Course:?, improved.?Treatments:?rest/alter normal daily activity, AFO brace.?Swelling:?Location:?Both feet/leg.?Duration:?several weeks.?Course:?worse.?Aggrevating factors:?weather.? * ROS:?General/Constitutional:?Nausea?denies.?Vomiting?denies.?Hunger Thirst?denies.?Loss appetite?denies.?Chills?denies.?Fatigue?denies.?Fever?denies.?Night Sweats?denies.?Unexplained weight loss?denies.?Unexplained [...] than smoking?Are you an other tobacco user??No ???Miscellaneous:?Caffeine: yes, frequency: 2-3 cups per day. ?no Children. ?Exercise: yes, walking. ?Marital status: . ?Occupation: Disabled/Retired. * Medications:?TakingTerazosin HCl 10 MG Capsule 1 capsule at bedtime Orally Once a dayFurosemide 40 MG Tablet 1 tablet Orally Once a dayMesalamine 1.2 GM Tablet Delayed Release 2 tablets Orally Once a dayVitamin B 12 Vitamin D3 AFO-fixed . Ankle- Foot Orthotic 1 . Wear dailyTaking Terazosin HCl 10 MG Capsule 1 capsule at bedtime Orally Once a dayTaking Furosemide 40 MG Tablet 1 tablet Orally Once a dayTaking Mesalamine 1.2 GM Tablet Delayed Release 2 tablets Orally Once a dayTaking Vitamin B 12 Taking Vitamin D3 Taking AFO-fixed . Ankle-Foot Orthotic 1 . Wear dailyNot- Taking/PRNAubagio 14 MG Tablet 1 tablet Orally Once a dayProbiotic Physical Therapy . . . . 2-3x/weekMedication List reviewed and reconciled with the patientNot-Taking/PRN Aubagio 14 MG Tablet 1 tablet Orally Once a dayNot-Taking/PRN Probiotic Not-Taking/PRN Physical Therapy . . . . 2-3x/weekMedication List reviewed and reconciled with the patient * Allergies:?Seasonale: Allerg yyes[Allergies Verified] Objective: * Vitals:?Ht: 6ft1in, Wt:238, BMI:31.4, Shoe size: 13, BP:128/70 mm Hg, Ht-cm: 185.42 cm, Wt-k.95 kg. * Examination: ???General Examination: ?GENERAL APPEARANCE:?pleasant, alert, well nourished, well developed, well hydrated, with good attention to hygene/body habitus, and in no acute distress.?ORIENTED:?person,place, and time.?Neurological: ?SENSORY:?Neurological exam demonstrates pop lateral left ankle and rearfoot--along course of peroneal tendon.?TINEL'S COMPRESSION:?Negative tarsal tunnel, dex pedis, and medial calcaneal nerves B/L.?BABINSKI REFLEX:?absent.?Neuroma Pain: ?PALPATION:?No interspace pain noted on palpation.?Vascular: ?DP PULSES:?2/4, B/L.?PT PULSES:? /4, B/L.?CAPILLARY FILL TIME:?3 secs. per digit, B/L.?SKIN TEMPERTURE GRADIENT OF THE LOWER EXTERMITIES:?warm to cool, proximal to distal, B/L.?HAIR GROWTH/TEXTURE/ELASTICITY/TURGOR:?normal, B/L.?PIGMENTATION:?normal, B/L.?EDEMA:?, 4/4 , non-pitting , Left , 2/4 , Right.?TELANGECTASIA:?absent.?VARICOSITIES:?absent.?JESSICA'S SIGN:?absent, B/L.?PALPABLE CORDS:?absent, B/L.?Dermatologic: ?SKIN FINDINGS:?Skin exam reveals normal texture, elasticity, and tugor. There are no masses. The interspaces are clear, B/L .?Orthopedic: ?MUSCLE STRENGTH:?5/5 all groups in a symmetrical fashion , B/L.?GAIT ABNORMALITY:?pronated, abducted, B/L.?FOOT MORPHOLOGY:? Pes Planus structure, B/L, Dropfoot, LEFT.?DIGITAL DEFORMITIES:?Digital contracture, PIPJ, 2-5 B/L, incompl-reducible with WB, or to push-up test, no over, nor underlapping.? Assessment: * Assessment: 1.?Osteoarthritis of midtars al joint of left foot - M19.072?2.?Edema, lower extremity - R60.0 (Primary), Acute problem, Uncomplicated (3), Rx Management (4)?3.?Pain in left foot - M79.672?4.?Pain in left ankle and joints of left foot - M25.572?5.?Bursitis of left foot - M77.52?6.?Left foot drop - M21.372?7.?Other chronic pain - G89.29? Plan: * Treatment: * Procedure Codes:? * Preventive Medicine:? ??Counseling:?Discussion:?-14: Office or other outpatient visit for the evaluation and management of an established patient, which required a medically appropriate history [...] have encouraged the patient to call the office.?BioMech.:?I discussed the Pts foot biomechanics with them and how it relates to their problem. Recomm pt dianna with the brace wearing a compression stocking. discussed his unsteady gait and the need to prevent furture falls. Examination of the brace is performed.?Edema:?I explained to the patient the possible etiologies for Edema, including genetic, surgery, infection, medications, heart disease, kidney disease, excess dietary salt, and various cancer treatments. We discussed the risks/benefits of the treatment options available including rest, elevation, OTC compression stockings, Rx compression stockings, Unna Boot application, diet modification to limit salt intake, and Rx segmental compression boots provided the absence of CHD in the patients medical history. The advantages and disadvantages of each option were discussed and the patients questions re: risk of infection(cellulitis), medications, diet, and the daily use of compression stockings(not to be worn at night), and consistency in these home treatment regimens for optimal success were answered to their verbally confirmed satisfaction. Given the risk for vessel clotting disease, the patient was instructed to go immediately to the ER of hospital should they experience any calf pain, SOB, or discomfort. Any changes to the patients medication regimen will be performed by the PCP or patients kidney/heart/cancer specialist. The patient has elected to receive compression stockings. Such were Rxed today with instructions for use.? * Follow Up:?6 Months * Images: * Sign off status: Completed true * Provider:Otis Reynoso DPM Date:?2023 Generated for Printi ng/Faxing/eTransmitting on:?07/02/2024 07:44 AM EST History and Physical Notes * HPI (History of Present Illness) Category Sub-Category Detail Notes Category Not es Ankle Pain Duration: , several years Nature: aching, bruising, pu lling, ripping/tearing/searing, sharp, swelling, tenderness, throbbing Treatments: rest/alter normal da amira activity, ice Course: , improved Location: Outside aspect of th e Left ankle Onset/Cause: trauma [pt fell ] Aggravated by: any pressure, standi ng, walking Foot Pain Nature: aching, stiffness, swelling, throbbing Location: Top, Midfoot, LEFT Duration: , several years Course: , improved Treatments: rest/alter normal da amira activity, AFO brace Swelling Location: Both feet/leg Duration: several weeks Course: worse Aggravating factors: weather Examination Category Sub-Category Detail Notes Category Not [...] B/L TROPHIC CONDITION-TEXTURE/ELASTICITY/TURGOR/HAIR GROWTH(B): normal, B/L EDEMA(C): , 4/4 , non-pitting , Left , 2/4 , Right TELANGECTASIA: absent VARICOSITIES: absent JESSICA'S SIGN: absent, B/L PALPABLE CORDS: absent, B/L PIGMENTATION: normal, B/L
--- OUTSIDE RECORDS SUMMARY | 2024-07-02 07:44 | XMS_ITS ---
Author Organization [facility] Address [address] [place] [address] Care Team Providers Care Janitor Name Role Phone Prudencio Stroud MD Primary Care Provider Pavithra Ro [phone] REASON FOR VISIT P+O Encounters Encounter Location Date Provider Diagnosis [address] [address] 10/29/2023 Pavithra Reynoso Plan Of Treatment Next Appt Details Provider Name:Pavithra Reynoso , 07/07/2024 11:00:00 AM, [address] [place], [address], Progress Notes * Richard OLIVERA IIIDOB:1964 (58 yo M)Acc No.[id number]:10/29/2023 Patient:?Richard Olivera :1965???Age:58 Y???Sex:Male Address:[address] [place] [address], [id number] * true * Date:? Generated for Printi keven/Zana/eTransmitting on:?07/02/2024 07:44 AM EST
--- OUTSIDE RECORDS SUMMARY | 2024-07-02 07:45 | XMS_ITS | Patient Health Record ---
[facility] Organization [facility] Address [address] [place] [address] Care Team Providers Care [employer] Name Role Phone Prudencio Stroud MD Primary Care Provider Pavithra Ro Unavailable [phone] Allergies Allergen (clinical drug ingredient) Drug/Non Drug Allergy documented on EMR Reaction Allergy Type Onset Date Status Seasonale Unknown Drug Allergy Active Results Component Value Reference Range Notes X ray : Ankle, left 3V Reviewed date:10/15/2023 06:03:58 PM Interpretation:See Examination above Performing Lab: Notes/Report: See Examination above X ray : Foot, left 3V Reviewed date:10/15/2023 06:03:42 PM Interpretation:See Examination above Performing Lab: Notes/Report: See Examination above Reason For Referral No Information Medications Medication SIG (Take, Route, Frequency, Duration) Notes Start Date End Date Status Furosemide 40 MG 1 tablet Orally Once a day Active Compression Stockings 20-30mm Hg 1 pair wear daily for 30 days Active Terazosin HCl 10 MG 1 capsule at bedtime Orally Once a day Active Vitamin B 12 Active Mesalamine 1.2 GM 2 tablets Orally Onc e a day Active AFO-fixed . 1 . Wear daily for . 10/15/2023 Active Vitamin D3 Active Probiotic Not-Taking Aubagio 14 MG 1 tablet Orally Once a day Not-Taking Physical Therapy . . . 2-3x/week for 3- 4 weeks 10/03/2018 Not-Taking Social History Tobacco Use: Social History Observation [...] Problem Status W/U Status Risk Notes Problem Localized, primary osteoarthritis of the ankle and/or foot (677815496) Primary osteoarthritis, left ankle and foot (M19.072) Active confirmed Problem 32045263 Other chronic pain (G89.29) Active confirmed Problem 36323756 MS (multiple sclerosis) (G35) Active confirmed Problem Osteoarthritis of midtarsal joint of left foot (2398843768184001 ) Osteoarthritis of midtarsal joint of left foot (M19.072) Active confirmed Vital Signs Blood pressure diastolic 70 mm Hg 02/04/2024 Height 6ft1in in 02/04/2024 Blood pressure systolic 128 mm Hg 02/04/2024 Weight 238 lbs 02/04/2024 BMI 31.4 kg/m2 02/04/2024 Encounters Encounter Location Date Provider Diagnosis [address] [address] 10/15/2023 Pavithra Black Pain in left foot M79.672 ; Osteoarthritis of midtarsal joint of left foot M19.072 ; Pain in left ankle and joints of left foot M25.572 ; Bursitis of left foot M77.52 ; Left foot drop M21.372 and Other chronic pain G89.[address] [address] 02/04/2024 Pavithra Black Osteoarthritis of midtarsal joint of left foot M19.072 ; Edema, lower extremity R60.0 ; Pain in left foot M79.672 ; Pain in left ankle and joints of left foot M25.572 ; Bursitis of left foot M77.52 ; Left foot drop M21.372 and Other chronic pain G89.[address] [address] 07/24/2023 Pavithra Black [address] [address] 10/29/2023 Pavithra Black Assessments Encounter Date Diagnosis (ICD Code) Assessment Notes Treatment Notes Treatment Clinical Notes Section Notes 10/15/2023 Pain in left foot (ICD-10 - M79.672) 10/15/2023 Osteoarthritis of midtarsal joint of left foot (ICD-10 - M19.072) 02/04/2024 Osteoarthritis of midtarsal joint of left foot (ICD-10 - M19.072) 02/04/2024 Edema, lower extremity (ICD-10 - R60.0) 02/04/2024 Pain in left foot (ICD-10 - M79.672) 10/15/2023 Pain in left ankle and joints of left foot (ICD-10 - M25.572) 02/04/2024 Pain in left ankle and joints of left foot (ICD-10 - M25.572) 10/15/2023 Bursitis of left foot (ICD-10 - M77.52) 10/15/2023 Left foot drop (ICD-10 - M21.372) 02/04/2024 Bursitis of left foot (ICD-10 - M77.52) 02/04/2024 Left foot drop (ICD-10 - M21.372) 10/15/2023 Other chronic pain (ICD-10 - G89.29) 02/04/2024 Other chronic pain (ICD-10 - G89.29) Plan Of Treatment Next Appt Details Provider Name:Pavithra Reynoso , 07/07/2024 11:00:00 AM, [address] [place] [address], [phone], Insurance Providers Payer Name Payer Address Payer Phone Subscriber Number Group Number Insured Name Patient Relationship to Insured Coverage Start Date Coverage End Date [facility] [address] [place], [place] [id number] [phone] [id number] Hill III, Richard Self - patient is the insured Medicare [employer] [address] [place] [address] [phone] [id number] Hill III, Richard Self - patient is the insured Medical (General) History Medical History History ICD Code Crohns disease Multiple sclerosis Chicken pox left ankle swelling Elevated Ferritin Hemochromatosis Carrier Surgical History Surgery Date(Month/Year) nose 2000 lung surgery 2019 septoplasty 2000
== END 2024-06-27 13:28 | disposition home or self-care (01) ==
PROVIDERS: PCP Family Medicine; Visit Provider Physician Assistant Medical
DX: Z87.891 Personal history of nicotine dependence (principal)
CPT/HCPCS: G0296

== ENCOUNTER 2024-06-27 11:07 | Outpatient (REF) | payer OTHER, MEDICARE, SELFPAY ==
--- NOTE | ~2024-06-27 | CT_ITS ---
EXAMINATION: CT LOW-DOSE SCREENING CHEST WITHOUT CONTRAST CLINICAL INFORMATION: Personal history of nicotine dependence. The patient has a 78 pack-year history of smoking, having quit 9 years ago. COMPARISON: X-ray chest 04/17/2024. CT chest 09/18/2019. TECHNIQUE: Multidetector volumetric CT imaging of the chest is performed on a Siemens SOMATOM Definition scanner without contrast using low dose technique. Additional 2D coronal and sagittal reformatted images and axial 3D maximum intensity projection (MIP) images are generated on the CT workstation. This CT examination was performed using dose optimization techniques as appropriate, variously including the following: *Automated exposure control *Adjustment of mA and/or kV according to patient size (this includes techniques or standardized protocols for targeted exams where dose is matched to indication/reason for exam; i.e. extremities or head) *Use of iterative reconstruction technique TOTAL EXAM DLP: 82 mGy-cm. CTDIvol: 2.32 mGy. FINDINGS: PULMONARY NODULES: At the posterolateral right apex (5:110), a 1.0 x 0.6 cm mildly spiculated nodule is seen. Within the posterior segment of the right upper lobe laterally (5:239), a 3 mm noncalcified nodule is seen. Inferiorly within the right upper lobe (5:272 and 276), there are 4 mm and 4 mm nodules. The latter of these appears to contain a small calcification. No left lung nodule is seen. LUNGS: Lungs bilaterally symmetrically expanded. There are moderately severe centrilobular predominant emphysematous changes. There are postoperative changes within the posterior segment of the right upper lobe and the upper mid left lower lobe, consistent with prior wedge resections, with surgical [place] noted. No residual or recurrent mass is noted. There is no pleural effusion or pneumothorax. There is no generalized small airway thickening. The central airways appear patent. MEDIASTINUM: No mediastinal, hilar or axillary adenopathy or free fluid collection. CORONARY ARTERY CALCIFICATION: None visualized on this study. THYROID GLAND: Unremarkable to the extent seen. CARDIOVASCULAR STRUCTURES: Aortic and heart size normal. There is mild atherosclerotic calcification of the great vessel origins and thoracic aorta. No pericardial effusion. CHEST WALL/AXILLA: No internal mammary or axillary lymphadenopathy is seen. There is very mild bilateral gynecomastia. UPPER ABDOMEN: A small gallstone is seen towards the neck portion, incompletely covered in the [id number]. The adrenal glands are unremarkable. OSSEOUS STRUCTURES: No suspicious focal findings. CT/CT lung screening IMPRESSION: 1. There are right lung nodules, the largest at the apex measuring 1.0 cm, with mild spiculations. 2. There are moderately severe centrilobular predominant emphysematous changes. 3. There are postoperative changes of the left lung, for which correlation with the patient's past surgical history is recommended. No residual or recurrent mass lesion is noted. 4. There is no thoracic lymphadenopathy or pleural effusion. 5. No acute or aggressive osseous finding is noted. 6. A small gallbladder neck calculus is questioned, incompletely covered in the [id number]. This can be more fully evaluated with abdominal ultrasound, clinically indicated. ASSESSMENT: 1. Lung-RADS Category 4A: Suspicious findings. N/A 2. Lung-RADS Category S: Negative. There are no clinically significant or potentially clinically significant findings not related to the lungs requiring urgent additional evaluation. RECOMMENDATION: A 3-month follow up low-dose lung CT scan is recommended. An order for CT LUNG CANCER SCREENING SHORT INTERVAL FOLLOWUP ([id number]) can be placed. PET/CT may be considered at this time. Electronically signed by: Richard Nieves MD 08/20/2024 10:06 AM MICHAEL HEAD
== END 2024-06-27 11:08 | disposition home or self-care (01) ==
LOC: HO.CT 11:07
PROVIDERS: PCP Internal Medicine; Visit Provider Physician Assistant Medical
DX: Z12.2 Encounter for screening for malignant neoplasm of respiratory organs (principal); Z87.891 Personal history of nicotine dependence
CPT/HCPCS: 71271; G0296

== ENCOUNTER 2024-07-08 12:47 | Outpatient (REF) | payer OTHER, SELFPAY ==
--- OUTSIDE RECORDS SUMMARY | 2024-07-08 12:50 | XMS_ITS ---
Author Organization [facility] Address [address] [place] [address] Care Team Providers Care Electronic Engraver Name Role Phone Prudencio Stroud MD Primary Care Provider Nathaniel Reynoso Pavithra Unavailable [phone] Allergies Allergen (clinical drug ingredient) Drug/Non Drug Allergy documented on EMR Reaction Allergy Type Onset Date Status Seasonale Unknown Drug Allergy Active REASON FOR VISIT Foot pain, Swelling Medications Medication SIG (Take, Route, Frequency, Duration) Notes Start Date End Date Status Probiotic Unknown Aubagio 14 MG 1 tablet Orally Once a day Unknown Physical Therapy . . . 2-3x/week for 3- 4 weeks 10/03/2018 Unknown Compression Stockings 20-30mm Hg 1 pair wear daily for 30 days Unknown AFO-fixed . 1 . Wear daily for . 10/15/2023 Active Mesalamine 1.2 GM 2 tablets Orally Onc e a day Active Furosemide 40 MG 1 tablet Orally Once a day Active Terazosin HCl 10 MG 1 capsule at bedtime Orally Once a day Active Vitamin D3 Active Vitamin B 12 Active Losartan Potassium 50 MG 1 tablet Orally Once a day Active Social History Tobacco Use: Social History Observation Description Date Details (start date - stop date) Former Smoker NA - NA Tobacco use other than smoking: Question Answer Notes Are you an other tobacco user? No Tobacco Control (Standard) Question Answer Notes Tobacco use: Former smoker Additional Findings: Tobacco non-user Ex-cigaret te smoker Vital Signs Height 6ft1in in 07/07/2024 Weight 235 lbs 07/07/2024 BMI 31 kg/m2 07/07/2024 Blood pressure systolic 129 mm Hg 07/07/20 24 Blood pressure diastolic 75 mm Hg 024 Encounters Encounter Location Date Provider Diagnosis [facility] [place] [address] [place] [address] 07/07/2024 Pavithra Reynoso Osteoarthritis of midtarsal joint of left foot M19.072 ; Edema, lower extremity R60.0 ; Pain in left foot M79.672 ; Pain in left ankle and joints of left foot M25.572 ; Bursitis of left foot M77.52 ; Left foot drop M21.372 and Other chronic pain G89.29 Assessments Encounter Date Diagnosis (ICD Code) Assessment Notes Treatment Notes Treatment Clinical Notes Section Notes 07/07/2024 Osteoarthritis of midtarsal joint of left foot (ICD-10 - M19.072) 07/07/2024 Edema, lower extremity (ICD-10 - R60.0) 07/07/2024 Pain in left foot (ICD-10 - M79.672) 07/07/2024 Pain in left ankle and joints of left foot (ICD-10 - M25.572) 07/07/2024 Bursitis of left foot (ICD-10 - M77.52) 07/07/2024 Left foot drop (ICD-10 - M21.372) 07/07/2024 Other chronic pain (ICD-10 - G89.29) Plan Of Treatment Next Appt Details Follow Up: prn, Reason: Progress Notes * JAROD WORTHINGTON, Richard BDOB:1964 (59 yo M)Acc No.[id number]:07/07/2024 Progress Note Patient:?JAROD WORTHINGTON, Richard B Provider:?Pavithra Reynoso DPM :1965???Age:59 Y???Sex:Male David e:07/07/2024 Address:[address] [place], [place] [id number] Pcp:Prudencio Stroud MD Subjective: * Chief Complaints: * ???Foot painSwelling * HPI: ???Foot Pain:?Nature:?aching, stiffness,?.?Location:?Top, Midfoot, LEFT.?Duration:?, several years.?Course:?, unresolved.?Treatments:?rest/alter normal daily activity, pt relates he stopped wear the AFO brace.?Swelling:?Location:?Both feet/leg.?Duration:?several weeks.?Course:?, improved.?Aggravating factors:?weather.?Misc:?PCP 06/09/2024.? * ROS:?General/Constitutional:?Nausea?denies.?Vomiting?denies.?Hunger Thirst?denies.?Loss appetite?denies.?Chills?denies.?Fatigue?denies.?Fever?denies.?Night Sweats?denies.?Unexplained weight loss?denies.?Unexplained [...] cancer, unspecified relation. * Social History:?Tobacco Use:?Tobacco use other than smoking?Are you an other tobacco user??No ?Tobacco Control (Standard)?Tobacco use:?Former smoker ?Additional Findings: Tobacco non-user?Ex-cigarette smoker * Medications:?TakingLosartan Potassium 50 MG Tablet 1 tablet Orally Once a day Terazosin HCl 10 MG Capsule 1 capsule at bedtime Orally Once a day Furosemide 40 MG Tablet 1 tablet Orally Once a day Mesalamine 1.2 GM Tablet Delayed Release 2 tablets Orally Once a day Vitamin B 12 Vitamin D3 AFO-fixed . Ankle-Foot Orthotic 1 . Wear daily Taking Losartan Potassium 50 MG Tablet 1 tablet Orally Once a day Taking Terazosin HCl 10 MG Capsule 1 capsule at bedtime Orally Once a day Taking Furosemide 40 MG Tablet 1 tablet Orally Once a day Taking Mesalamine 1.2 GM Tablet Delayed Release 2 tablets Orally Once a day Taking Vitamin B 12 Taking Vitamin D3 Taking AFO-fixed . Ankle-Foot Orthotic 1 . Wear daily UnknownCompression Stockings 20- 30mm Hg closed toe- knee high 1 pair wear daily Aubagio 14 MG Tablet 1 tablet Orally Once a day Probiotic Physical Therapy . . . . 2-3x/week Medication List reviewed and reconciled with the patientUnknown Compression Stockings 20-30mm Hg closed toe- knee high 1 pair wear daily Unknown Aubagio 14 MG Tablet 1 tablet Orally Once a day Unknown Probiotic Unknown Physical Therapy . . . . 2-3x/week Medication List reviewed and reconciled with the patient * Allergies:?Seasonale: Allerg yyes[Allergies Verified] Objective: * Vitals:?Ht: 6ft1in, Wt:235, BMI:31, Shoe size: 13, BP:129/75mm Hg, Ht-cm: 185.42 cm, Wt-k.59 kg. * Examination: ???General Examination: ?GENERAL APPEARANCE:?pleasant, alert, well nourished, well developed, well hydrated, with good attention to hygene/body habitus, and in no acute distress.?ORIENTED:?person,place, and time.?Neurological: ?SENSORY:?Neurological exam demonstrates pop lateral left ankle and rearfoot--along course of peroneal tendon.?TINEL'S COMPRESSION:?Negative tarsal tunnel, dex pedis, and medial calcaneal nerves B/L.?BABINSKI REFLEX:?absent.?Neuroma Pain: ?PALPATION:?No interspace pain noted on palpation.?Vascular: ?DP PULSES(B):?/, B/L.?PT PULSES(B):? 07/26, B/L.?CAPILLARY FILL TIME:?3 secs. per digit, B/L.?TROPHIC CONDITION-TEXTURE/ELASTICITY/TURGOR/HAIR GROWTH(B):?normal, B/L.?TEMPERTURE GRADIENT(C):?warm to cool, proximal to distal, B/L.?PIGMENTATION:?normal, B/L.?EDEMA(C):?, /, B/L.?TELANGECTASIA:?absent.?VARICOSITIES:?absent.?JESSICA'S SIGN:?absent, B/L.?PALPABLE CORDS:?absent, B/L.?Dermatologic: ?SKIN FINDINGS:?Skin exam reveals normal texture, elasticity, and tugor. There are no masses. The interspaces are clear, B/L .?Orthopedic: ?MUSCLE STRENGTH:?5/5 all groups in a symmetrical fashion , B/L.?GAIT ABNORMALITY:?pronated, abducted, B/L.?FOOT MORPHOLOGY:? Pes Planus structure, B/L, Dropfoot, LEFT,Pain on palpation,dorsal,midfoot left?.?DIGITAL DEFORMITIES:?Digital contracture, PIPJ, 2-5 B/L, incompl-reducible with WB, or to push-up test, no over, nor underlapping.? Assessment: * Assessment: 1.?Osteoarthritis of midtars al joint of left foot - M19.072???2.?Edema, lower extremity - R60.0 (Primary)???Specify :Response to treatment - Improvement???3.?Pain in left foot - M79.672???4.?Pain in left ankle and joints of left foot - M25.572???5.?Bursitis of left foot - M77.52???6.?Left foot drop - M21.372???7.?Other chronic pain - G89.29??? Plan: * Treatment: * Procedure Codes:? * Preventive Medicine:? ??Counseling:?Discussion:?-13: Office or other outpatient visit for the evaluation and management of an established patient, which required a medically appropriate history and/or examination and LOW level of DECISION MAKING for: 1 STABLE ACUTE UNCOMPLICATED PROBLEM, 2 OR MORE MINOR PROBLEMS, OR 1 STABLE CHRONIC PROBLEM, THAT POSE(S) A LOW RISK FOR MORBIDITY/MORTALITY. The visit on the day of the [...] have encouraged the patient to call the office.?Edema:?Discussed other tx options for the patients condition, The patient wishes to continue with the present treatment plan for their condition given its success.?Steriod Injection:?I explained that a steroid and local anesthetic injections are administered to relieve pain and inflammation and thereby meant to improve function. I explained the possible complications including but not limited to signs/symptoms of steroid flare, infection, bruising, atrophy, discoloration of skin, change/deviation in toe position, and that additional injections may be necessary, cortisone post-injection informative educational handout was dispensed to and reviewed with the patient, Pt defers injection today, Rercomm topical biofreeze as needed.? * Follow Up:?prn * Images: * Sign off status: Completed true * Provider:?Pavithra Reynoso DPM Date:?2023 Generated for Amador baca/Zana/Karina on:?07/08/2024 12:50 PM EST History and Physical Notes * HPI (History of Present Illness) Category Sub-Category Detail Notes Category Not es Foot Pain Nature: aching, stiffness, Location: Top, Midfoot, LEFT Duration: , several years Course: , unresolved Treatments: rest/alter normal da amira activity, pt relates he stopped wear the AFO brace Swelling Location: Both feet/leg Duration: several weeks Course: , improved Aggravating factors: weather Misc: PCP 06/09/2024 Examination Category Sub-Category Detail Notes Category Not [...] MORPHOLOGY: Pes Planus structure , B/L, Dropfoot, LEFT,Pain on palpation,dorsal,midfoot left DIGITAL DEFORMITIES: Digital contracture , PIPJ, 2-5 [...] TROPHIC CONDITION-TEXTURE/ELASTICITY/TURGOR/HAIR GROWTH(B): normal, B/L EDEMA(C): , 1/4, B/L TELANGECTASIA: absent VARICOSITIES: absent JESSICA'S SIGN: absent, B/L PALPABLE CORDS: absent, B/L PIGMENTATION: normal, B/L
--- OUTSIDE RECORDS SUMMARY | 2024-07-08 12:50 | XMS_ITS ---
Author Organization [facility] Address [address] [place] [address] Care Team Providers Care Husker Operator Name Role Phone Prudencio Stroud MD Primary Care Provider Nathaniel Reynoso Pavithra Unavailable [phone] Allergies Allergen (clinical drug ingredient) Drug/Non Drug [...] 024 Encounters Encounter Location Date Provider Diagnosis [facility] [place] [address] [place] [address] 02/04/2024 Pavithra Reynoso Osteoarthritis of midtarsal joint [...] Appt Details Follow Up: 6 Months, Reason: Progress Notes * JAROD WORTHINGTON, Richard BDOB:1964 (58 yo M)Acc No.[id number]:02/04/2024 Progress Note Patient:?Richard Greeen III B Provider:?Pavithra Reynoso DPM :1965???Age:58 Y???Sex:Male David e:02/04/2024 Address:[address] [place], [place] [id number] Pcp:Kayla Galaviz MD Subjective: * Chief Complaints: [...] ?PALPATION:?No interspace pain noted on palpation.?Vascular: ?DP PULSES:?2/, B/L.?PT PULSES:? 07/26, B/L.?CAPILLARY FILL TIME:?3 secs. per digit, B/L.?SKIN [...] Provider:?Pavithra Reynoso DPM Date:?2023 Generated for Amador baca/Zana/Jayceitting on:?07/08/2024 12:50 PM EST History and Physical [...]
--- OUTSIDE RECORDS SUMMARY | 2024-07-08 12:51 | XMS_ITS ---
Author Organization [facility] Address [address] [place] [address] Care Team Providers Care Parliamentary Archivist Name Role Phone Prudencio Stroud MD Primary Care Provider Pavithra Ro [phone] REASON FOR VISIT P+O Encounters Encounter Location Date Provider Diagnosis [facility] [address] [place] [address] 10/29/2023 Pavithra Reynoso Plan Of Treatment No Information Progress Notes * Richard OLIVERA IIIDOB:1964 (58 yo M)Acc No.[id number]:10/29/2023 Patient:?Richard Olivera :1965???Age:58 Y???Sex:Male Address:[address] [place] [address], [address] * true * Date:? Generated for Tini keven/Zana/eTransmitting on:?07/08/2024 12:50 PM EST
--- OUTSIDE RECORDS SUMMARY | 2024-07-08 12:51 | XMS_ITS | Patient Health Record ---
[facility] Address [address] [place] [address] Care Team Providers Care Telegraph Service Rater Name Role Phone Prudencio Stroud MD Primary Care Provider Pavithra Ro Unavailable [phone] Allergies Allergen (clinical drug ingredient) Drug/Non Drug [...] 2-3x/week for 3- 4 weeks 10/03/2018 Unknown Mesalamine 1.2 GM 2 tablets Orally Onc e a day Active Furosemide 40 MG 1 tablet Orally Once a day Active Terazosin HCl 10 MG 1 capsule at bedtime Orally Once a day Active Losartan Potassium 50 MG 1 tablet Orally Once a day Active Compression Stockings 20-30mm Hg 1 pair wear daily for 30 days Unknown AFO-fixed . 1 . Wear daily for . 10/15/2023 Active Vitamin D3 Active Vitamin B 12 Active Social History Tobacco Use: Social History Observation Description Date Details (start date - stop date) Former Smoker NA - NA Alcohol Screen Question Answer Notes Did you have a drink containing alcohol in the p ast year? Yes Points 0 Interpretation Negative Tobacco use other than smoking: Question Answer Notes Are you an other tobacco user? No Tobacco Control (Standard) Question Answer Notes Tobacco use: Former smoker Additional Findings: Tobacco non-user Ex-cigaret te smoker Problems Problem Type SNOMED Code ICD Code Onset Dates Problem Status W/U Status Risk Notes Problem Localized, primary osteoarthritis of the ankle and/or foot (359119984) Primary osteoarthritis, left ankle and foot (M19.072) Active confirmed Problem 90858967 Other chronic pain (G89.29) Active confirmed Problem 30332821 MS (multiple sclerosis) (G35) Active confirmed Problem Osteoarthritis of midtarsal joint of left foot (5944834759001965 ) Osteoarthritis of midtarsal joint of left foot (M19.072) Active confirmed Vital Signs Blood pressure diastolic 75 mm Hg 07/07/2024 Height 6ft1in in 07/07/2024 Blood pressure systolic 129 mm Hg 07/07/2024 Weight 235 lbs 07/07/2024 BMI 31 kg/m2 07/07/2024 Encounters Encounter Location Date [facility] [address] [facility]/15/2023 Pavithra Black Pain in left foot M79.672 ; Osteoarthritis of midtarsal joint of left foot M19.072 ; Pain in left ankle and joints of left foot M25.572 ; Bursitis of left foot M77.52 ; Left foot drop M21.372 and Other chronic pain G89.[address] [address] 02/04/2024 Pavithra Black Osteoarthritis of midtarsal joint of left foot M19.072 ; Edema, lower extremity R60.0 ; Pain in left foot M79.672 ; Pain in left ankle and joints of left foot M25.572 ; Bursitis of left foot M77.52 ; Left foot drop M21.372 and Other chronic pain G89.[address] [address] 07/07/2024 Pavithra Black Osteoarthritis of midtarsal joint of left foot M19.072 ; Edema, lower extremity R60.0 ; Pain in left foot M79.672 ; Pain in left ankle and joints of left foot M25.572 ; Bursitis of left foot M77.52 ; Left foot drop M21.372 and Other chronic pain G89.29 [facility] [address] [address] 07/24/2023 Pavithra Reynoso [facility] [address] [address] 10/29/2023 Pavithra Reynoso Assessments Encounter Date Diagnosis (ICD Code) Assessment Notes Treatment Notes Treatment Clinical Notes Section Notes 10/15/2023 Pain in left foot (ICD-10 - M79.672) 10/15/2023 Osteoarthritis of midtarsal joint of left foot (ICD-10 - M19.072) 02/04/2024 Osteoarthritis of midtarsal joint of left foot (ICD-10 - M19.072) 02/04/2024 Edema, lower extremity (ICD-10 - R60.0) 07/07/2024 Osteoarthritis of midtarsal joint of left foot (ICD-10 - M19.072) 07/07/2024 Edema, lower extremity (ICD-10 - R60.0) 07/07/2024 Pain in left foot (ICD-10 - M79.672) 02/04/2024 Pain in left foot (ICD-10 - M79.672) 10/15/2023 Pain in left ankle and joints of left foot (ICD-10 - M25.572) 02/04/2024 Pain in left ankle and joints of left foot (ICD-10 - M25.572) 10/15/2023 Bursitis of left foot (ICD-10 - M77.52) 07/07/2024 Pain in left ankle and joints of left foot (ICD-10 - M25.572) 02/04/2024 Bursitis of left foot (ICD-10 - M77.52) 07/07/2024 Bursitis of left foot (ICD-10 - M77.52) 10/15/2023 Left foot drop (ICD-10 - M21.372) 10/15/2023 Other chronic pain (ICD-10 - G89.29) 07/07/2024 Left foot drop (ICD-10 - M21.372) 02/04/2024 Left foot drop (ICD-10 - M21.372) 07/07/2024 Other chronic pain (ICD-10 - G89.29) 02/04/2024 Other chronic pain (ICD-10 - G89.29) Plan Of Treatment No Information Insurance Providers Payer Name Payer Address Payer Phone Subscriber Number Group Number Insured Name Patient Relationship to Insured Coverage Start Date Coverage End Date Medicare National [employer] [address] [place] [address] [id number] Jc III, Richard Self - patient is the insured [facility] [address] [place] [address] [phone] [id number] Jc III, Richard Self - patient is the insured Medical (General) History Medical History History ICD Code Crohns disease Multiple sclerosis Chicken pox left ankle swelling Elevated Ferritin Hemochromatosis 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
== END 2024-07-08 12:48 | disposition home or self-care (01) ==
LOC: HO.SH 12:47
PROVIDERS: Visit Provider Family Medicine
DX: Z01.118 Encounter for examination of ears and hearing with other abnormal findings (principal); H90.3 Sensorineural hearing loss, bilateral
CPT/HCPCS: 92557; 92567

== ENCOUNTER 2024-09-01 09:44 | Outpatient (REF) | payer OTHER, SELFPAY ==
--- OUTSIDE RECORDS SUMMARY | 2024-09-01 10:30 | XMS_ITS ---
Author Organization [facility] Address [address] [place] [address] Care Team Providers Care Pricing Specialist Name Role Phone Prudencio Stroud MD Primary Care Provider Pavithra Ro [phone] REASON FOR VISIT balance Encounters Encounter Location Date Provider Diagnosis [facility] [address] [place] [address] 07/30/2024 Pavithra Reynoso Plan Of Treatment No Information Progress Notes * Richard OLIVERA III BDOB:1964 (59 yo M)Acc No.[id number]:07/30/2024 Patient:?Richard OLIVERA III :1965???Age:59 Y???Sex:Male Address:[address] [place] [address], [address] * true * Date:? Generated for Amador baca/Zana/eTransmitting on:?09/01/2024 10:30 AM EST
--- OUTSIDE RECORDS SUMMARY | 2024-09-01 10:31 | XMS_ITS | Patient Health Record ---
[facility] Address [address] [place] [address] Care Team Providers Care Underground Utility Locator Name Role Phone Prudencio Stroud MD Primary Care Provider Pavithra Ro Unavailable [phone] Allergies Allergen (clinical drug ingredient) Drug/Non Drug Allergy documented on EMR Reaction Allergy Type Onset Date Status Seasonale Unknown Drug Allergy Active Results Component Value Reference Range Notes X ray : Foot, left 3V Reviewed date:10/15/2023 06:03:42 PM Interpretation:See Examination above Performing Lab: Notes/Report: See Examination above X ray : Ankle, left 3V Reviewed [...] primary osteoarthritis of the ankle and/or foot (072040986) Primary osteoarthritis, left ankle and foot (M19.072) Active confirmed Problem 08076325 Other chronic pain (G89.29) Active confirmed Problem 52589952 MS (multiple sclerosis) (G35) Active confirmed Problem Osteoarthritis of midtarsal joint of left foot (2875882552512398 ) Osteoarthritis of midtarsal joint of left foot (M19.072) Active confirmed Vital Signs Blood pressure diastolic 75 mm Hg 07/07/2024 Height 6ft1in in 07/07/2024 Blood pressure systolic 129 mm Hg 07/07/2024 Weight 235 lbs 07/07/2024 BMI 31 kg/m2 07/07/2024 Encounters Encounter Location Date [facility] [address] 10/15/2023 Pavithra Black Pain in left foot M79.672 ; Osteoarthritis of midtarsal joint of left foot M19.072 ; Pain in left ankle and joints of left foot M25.572 ; Bursitis of left foot M77.52 ; Left foot drop M21.372 and Other chronic pain G89.[address] [address] 02/04/2024 Pavithra Black Osteoarthritis of midtarsal joint of left foot M19.072 ; Edema, lower extremity R60.0 ; Pain in left foot M79.672 ; Pain in left ankle and joints of left foot M25.572 ; Bursitis of left foot M77.52 ; Left foot drop M21.372 and Other chronic pain G89.[address] [address] 07/07/2024 Pavithra Black Osteoarthritis of midtarsal joint of left foot M19.072 ; Edema, lower extremity R60.0 ; Pain in left foot M79.672 ; Pain in left ankle and joints of left foot M25.572 ; Bursitis of left foot M77.52 ; Left foot drop M21.372 and Other chronic pain G89.29 [facility] [address] [address] 10/29/2023 Pavithra Reynoso [facility] [address] [address] 07/30/2024 Pavithra Reynoso Assessments Encounter Date Diagnosis (ICD [...] Medicare National [employer]t [employer] [address] [place] [address] [id number] Jc III, Richard Self - patient is the insured [facility] [address] [place] [address] [id number] Jc III, Richard Self - patient is the insured Medical (General) History Medical History History ICD Code Crohns disease Multiple sclerosis Chicken pox left ankle swelling Elevated Ferritin Hemochromatosis 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
--- OUTSIDE RECORDS SUMMARY | 2024-09-01 10:31 | XMS_ITS ---
Author Organization [facility] Address [address] [place] [address] Care Team Providers Care Real Estate Legal Secretary Name Role Phone Prudencio Stroud MD Primary Care Provider Nathaniel Reynoso Pavithra Unavailable [phone] Allergies Allergen (clinical drug ingredient) Drug/Non Drug [...] 024 Encounters Encounter Location Date Provider Diagnosis [facility] [place] [address] [place] [address] 02/04/2024 Pavithra Reynoso Osteoarthritis of midtarsal joint [...] JAROD WORTHINGTON, Richard BDOB:1964 (58 yo M)Acc No.[id number]:02/04/2024 Progress Note Patient:?Richard Greene III B Provider:?Pavithra Reynoso DPM :1965???Age:58 Y???Sex:Male David e:02/04/2024 Address:[address] [place], [place] [address] Pcp:Kayla Galaviz MD Subjective: * Chief Complaints: [...] Reynoso DPM Date:?2023 Generated for Amador baca/Zana/Karina on:?09/01/2024 10:31 AM EST History and Physical Notes * [...] ORIENTED: person,place, and ti me Vascular DP PULSES (B): 2/4, B/L PT PULSES (B): 1/4, B/L CAPILLARY FILL TIME: 3 secs. per digit, B/L TEMPERTURE GRADIENT (C): warm to cool, p roximal to distal, B/L TROPHIC CONDITION-TEXTURE/ELASTICITY/TURGOR/HAIR GROWTH (B): normal, B/L EDEMA (C): , 4/4 , non-pitting , Left , 2/4 , Right TELANGECTASIA: absent VARICOSITIES: absent JESSICA'S SIGN: absent, B/L PALPABLE CORDS: absent, B/L PIGMENTATION: normal, B/L
--- OUTSIDE RECORDS SUMMARY | 2024-09-01 10:31 | XMS_ITS | Clinical Summary ---
Author Organization [facility] Address [address] [place] [address] Care Team Providers Care Appliance Tester Name Role Phone Kayla Galaviz MD Primary Care Provider [phone] Medical History Medical History Date Comments Crohn's colitis (CMS/HCC) 02/28/2010 DX:Knot Borer hn's colitis (HCC) Bronchitis, not specified as acute or chronic DX:Bronchitis, not specified as acute or chronic Multiple sclerosis (CMS/HCC) DX: Multiple sclerosis (HCC) Family History Medical History Relation Name Comments Cataracts Paternal Grandmother Blindness Neg Hx Glaucoma Neg Hx Macular degeneration Neg Hx Strabismus Neg Hx Relation Name Status Comments Paternal Grandmother Social History Tobacco Use Types Packs/Day Years Used Date Smoking Tobacco: Former Cigarettes Smokeless Tobacco: Former Alcohol Use Standard Drinks/Week Comments Not Asked 0 (1 standard drink = 0.6 oz pur e alcohol) Sex and Gender Information Value Date Recorded Sex Assigned at Not on file Legal Sex Male 7:40 PM EST Gender Identity Not on file Sexual Orientation Not on file Obstetrics History Plan of Treatment Health Maintenance Due Date Last Done Comments Pneumococcal Vaccine: 50+ Ye ars (1 of 1 - PCV) 2013 Zoster Vaccines (1 of 2) 2013 DTaP,Tdap,and Td Vaccines (2 - Td or Tdap) 12/29/2014 12/01/2014 Cholesterol Screening (Lipid Panel) 06/24/2022 Colorectal Cancer Screening: Colonoscopy 06/24/2022 Depression Screening 06/24/2022 HIV Screening 06/24/2022 Hepatitis C Screening 06/24/2022 Social Influencers of Health Screening 06/24/2022 COVID-19 Vaccine (1 - 2023-2 5 season) 2024 Influenza Vaccine (#1) 2024 05/22/2016 RSV Immunization Patients 60 + Years Old (1 - 1-dose 75+ series) 2038 HIB Vaccines Aged Out No longer eligi ble based on patient's age to complete this topic HPV Vaccines Aged Out No longer eligi ble based on patient's age to complete this topic Hepatitis A Vaccines Aged Out No long er eligible based on patient's age to complete this topic Hepatitis B Vaccines Aged Out No long er eligible based on patient's age to complete this topic IPV Vaccines Aged Out No longer eligi ble based on patient's age to complete this topic MMR Vaccines Aged Out No longer eligi ble based on patient's age to complete this topic Meningococcal ACWY Vaccine Aged Out N o longer eligible based on patient's age to complete this topic Meningococcal B Vacine Aged Out No lo nger eligible based on patient's age to complete this topic Pneumococcal Vaccine: Pediat rics (0 to 5 Years) and At-Risk Patients (6 to 64 Years) Aged Out No longer eligi ble based on patient's age to complete this topic RSV Immunization Patients Un hector 20 months Aged Out No longer eligible b ased on patient's age to complete this topic Varicella Vaccines Aged Out No longer eligible based on patient's age to complete this topic Care Teams Appliance Tester Relationship Specialty Start Date End Date Kayla Galaviz MD PCP - General 03/02/23
--- OUTSIDE RECORDS SUMMARY | 2024-09-01 10:32 | XMS_ITS ---
Author Organization [facility] Address [address] [place] [address] Care Team Providers Care Extension Educator Name Role Phone Prudencio Stroud MD Primary Care Provider Nathaniel Reynoso Pavithra Unavailable [phone] Allergies Allergen (clinical drug ingredient) Drug/Non Drug [...] 024 Encounters Encounter Location Date Provider Diagnosis [facility] [address] [address] [place] [address] 07/07/2024 Pavithra Reynoso Osteoarthritis of midtarsal joint [...] JAROD WORTHINGTON, Richard BDOB:1964 (59 yo M)Acc No.[id number]:07/07/2024 Progress Note Patient:?JAROD WORTHINGTON, Richard B Provider:?Pavithra Reynoso DPM :1965???Age:59 Y???Sex:Male David e:07/07/2024 Address:[address] [place], [place] [id number] Pcp:Prudencio Stroud MD Subjective: * Chief Complaints: [...] GROWTH (B): normal, B/L EDEMA (C): , 1/4, B/L TELANGECTASIA: absent VARICOSITIES: absent JESSICA'S SIGN: absent, B/L PALPABLE CORDS: absent, B/L PIGMENTATION: normal, B/L
[2024-09-01 10:39] LABS: Anion Gap 10 (12-20); Blood Urea Nitrogen 16 mg/dL (9-16); Calcium 9.1 mg/dL (8.4-10.2); Carbon Dioxide 23 mmol/L (22-29); Chloride 111 mmol/L (96-108); Estimated Glomerular Filt Rate > 60; Glucose Random 109 mg/dL (60-115); Potassium 4.3 mmol/L (3.3-5.1); Sodium 140 mmol/L (135-145)
[2024-09-01 11:01] LABS: Thyroid Stimulating Hormone 4.24 uIU/mL (0.32-4.0)
[2024-09-02 16:38] LABS: Triiodothyronine T3 Total 87 ng/dL (76-181)
== END 2024-09-01 09:45 | disposition home or self-care (01) ==
LOC: HO.LAB 09:44
PROVIDERS: PCP Family Medicine; Visit Provider Family Medicine
DX: Z00.00 Encounter for general adult medical examination without abnormal findings (principal); E03.9 Hypothyroidism, unspecified; R79.89 Other specified abnormal findings of blood chemistry; I10 Essential (primary) hypertension
CPT/HCPCS: 36415; 80048; 84439; 84443; 84480

== ENCOUNTER 2024-09-08 11:22 | Outpatient (AMB) | payer OTHER, MEDICARE, SELFPAY ==
--- NOTE | 2024-09-08 11:25 | A.OFFPC_ITS ---
Vital Signs 09/08/24 11:29 Height 6 ft 1 in Weight 239 lb BMI 31.5 BP 130/70 Blood Pressure Location Lt brachial Position Sitting Respiration 14 Pulse 67 Pulse Source Pulse Oximeter Temp 97.3 F Temp Source Oral Pulse Oximetry (%) 94 Oxygen Delivery Method Room Air Intake Visit Reasons: f/u hypertension, chronic conditions Intake Note: follow up htn Calculation Clerk Required: No Allergies No Known Allergies [No Known Allergies*] Allergy (Verified 09/08/24 11:26) Medication List - Last Reconciled 09/08/24 by Prudencio Stroud MD albuterol sulfate 90 mcg/actuation (Ventolin HFA) 1 inh inhalation QID PRN furosemide 40 mg PO DAILY losartan 50 mg PO DAILY 90 days mesalamine 2.4 grams PO DAILY terazosin 10 mg PO BEDTIME 90 days teriflunomide (Aubagio) 14 mg PO DAILY vardenafil 20 mg PO DAILY PRN 30 days vitamin B complex PO Tobacco use date assessed: 04/16/24 Dental Screening Dental Screen Date: 04/16/24 HPI f/u hypertension, chronic conditions HPI Details 59 y/o male presents to f/u hypertension , chronic conditions. Had started him on losartan last office visit. Rechecking thyroid hormone levels. Hx of smoking. CT lung 06/27/24 showed R lung nodules, largest at the apex measuring 1.0 cm with mild spiculations. Small gallbladder neck calculus questioned. Moderately severe centrilobular predominant emphysematous changes. Blood pressure today 130/70, 67p. He is on losartan 50mg daily. Labs drawn 09/01/24. Reviewed labs with pt. TSH 4.24. [facility] Medical History (Updated 08/22/24 @ 09:16 by Hannah Oden PA-C) Personal history of nicotine dependence BPH (benign prostatic hyperplasia) Hyperlipidemia Crohn's disease (~2005) IBS (irritable bowel syndrome) Multiple sclerosis (~2014) Surgical History (Updated 06/27/24 @ 10:55 by Hannah Oden PA-C) History of lung surgery History of nasal septoplasty History of bronchoscopy History of vasectomy H/O colonoscopy Family History Father DM (diabetes mellitus) Social History (Updated 06/27/24 @ 10:48 by Hannah Oden PA-C) Housing: House Patient Tobacco Use Status: Former Tobacco user Years Smoked: (onset 12yo, 1ppd x 40yrs, 40pyh - quit 2014) e-Cigarette/Vaping Use: Never Used Current occupational status: unemployed and retired Cognitive needs: No Hearing needs: No Vision needs: Yes Questionnaire PHQ-9 Over the last 2 weeks, how often have you been bothered by any of the following problems? 4. Feeling tired or having little energy: not at all 5. Poor appetite or overeating: not at all 6. Feeling bad about yourself - or that you are a failure or have let yourself or your family down: not at all 7. Trouble concentrating on things, such as reading the newspaper or watching television: not at all 8. Moving or speaking so slowly that other people could have noticed. Or the opposite - being so fidgety or restless that you have been moving around a lot more than usual: not at all 9. Thoughts that you would be better off or of hurting yourself in some way: not at all Source: Developed by Drs. Markos Albert, Agueda Auguste, Cristopher Ruiz and colleagues, with an educational viridiana from [employer]. Thrive Questionnaire Date Thrive assessed: 09/08/24 I am a: Patient What is your living situation today?: I have a steady place to live Within the past 12 months, did the food you bought not last and you didn't have the money to get more?: I choose not to answer this question Within the past 12 months, did you worry whether your food would run out before you got money to buy more?: I choose not to answer this question Do you have trouble paying for medicines?: No Do you have trouble getting transportation to medical appointments?: No Do you have trouble paying your heating and electricity bill?: No Do you have trouble taking care of your child, family member or friend?: No Do you have trouble with day-to-day activities such as bathing, preparing meals, shopping, managing finances, etc.?: No Are you currently unemployed and looking for a job?: No Are you interested in more education?: No Please select the resources that you would like help with: None Currently or been in a relationship where the following occur: I choose not to answer THRIVE Score: 0 JING-7 AMB Questionnaire JING-7 Date JING - 7 assessed: 04/16/24 Source: Developed by Drs. Markos Albert, Agueda Auguste, Cristopher Ruiz and colleagues, with an educational viridiana from [employer]. Review of Systems Const Denies chills, Denies fatigue, Denies fever(s), Denies headache(s) and Denies weakness ENT Denies dizziness and Denies headache(s) Card Denies chest pain, Denies lightheadedness, Denies dyspnea and Denies other (Palpitations) Resp Denies cough, Denies dyspnea, Denies wheezing and Denies other ( shortness of breath) Musc Denies numbness and Denies tingling Neuro Denies dizziness, Denies headache(s), Denies numbness, Denies tingling, Denies paresthesias and Denies weakness Psych Denies anxiety and Denies depression Endo Denies fatigue Aller/Immun Denies wheezing Physical exam (Primary Care) Vital Signs: Last Vital Signs Temp 97.3 F 09/08/24 11:29 Pulse 67 09/08/24 11:29 Resp 14 09/08/24 11:29 BP 130/70 09/08/24 11:29 Pulse Ox 94 09/08/24 11:29 Oxygen Delivery Method Room Air 09/08/24 11:29 BMI result Body Mass Index 31.5 Tobacco/Smoking Status: Tobacco use Status Tobacco use date assessed 04/16/24 09/08/24 11:32 Patient Tobacco Use Status Former Tobacco user 09/08/24 11:32 e-Cigarette/Vaping Use Never Used 09/08/24 11:32 Thrive Assessment: Date of Thrive Assessment Date Thrive assessed 09/08/24 09/08/24 11:32 Currently or been in a relationship where the following occur: I choose not to answer Const General: no acute distress and well developed Nutritional Appearance: well nourished Orientation/consciousness: patient oriented x3 HENMT Head: Yes normocephalic and Yes atraumatic Eyes General: appearance normal, both eyes and all related structures Pupils: Equal, round and reactive pupils present EOM: EOMs intact bilaterally Resp Effort & Inspection: normal respiratory effort Auscultation: clear to auscultation bilaterally Cardio Rate: regular rate Rhythm: regular rhythm Heart sounds: S1 normal heart sound present, S2 normal heart sound present, no gallops, no murmurs and no rubs Neuro General: patient oriented x3 and gait normal Cranial nerves: Yes Equal, round and reactive pupils present Psych Affect: normal affect Coding Level of Care Code Est Pt Level 4 (57909) Diagnoses Hypertension I10 Pulmonary nodule, right R91.1 Elevated TSH R79.89 History of smoking Z87.891 Assessment & Plan Assessment & Plan (1) Hypertension: Code(s): I10 - Essential (primary) hypertension Category: Medical Plan: Blood?pressure?now?well?controlled?on?losartan Goal?is Less?than?140/90 Continue?current?medication (2) Pulmonary nodule, right: Comment: (1.0 x 0.6 cm right apex nodule - on 06/2024 LDCT unchanged compared to 2019 scan - will repeat scan 06/2025) Code(s): R91.1 - Solitary pulmonary nodule Category: Medical Plan: As?above,?1?cm?spiculated?nodule?at?right?apex?which?is?unchanged?from?prior?any ging. Patient?has?not?smoked?in?about?10?years No?systemic?changes?such?as?weight?loss.??Patient?feels?well He?has?3?months?follow-up?coming?up Will?review?with?him?next?visit (3) Elevated TSH: Code(s): R79.89 - Other specified abnormal findings of blood chemistry Category: Medical Plan: Mildly?elevated?TSH T4?and?T3?are?within?normal?limits?and?patient?is?asymptomatic Will?continue?to?monitor (4) History of smoking: Code(s): Z87.891 - Personal history of nicotine dependence Category: Social Hx Plan: As?above,?patient?has?not?smoked?about 10 yrs
--- OUTSIDE RECORDS SUMMARY | 2024-09-08 11:25 | XMS_ITS ---
Author Organization [facility] Address [address] [place] [address] Care Team Providers Care Manager Supply Chain Planning Name Role Phone Prudencio Stroud MD Primary Care Provider Pavithra Ro [phone] REASON FOR VISIT balance Encounters Encounter Location Date Provider Diagnosis [facility] [address] [place] [address] 07/30/2024 Pavithra Reynoso Plan Of Treatment No Information Progress Notes * Richard OLIVERA III BDOB:1964 (59 yo M)Acc No.[id number]:07/30/2024 Patient:?Richard OLIVERA III :1965???Age:59 Y???Sex:Male Address:[address] [place] [address], [address] * true * Date:? Generated for Amador bcaa/Zana/eTransmitting on:?09/08/2024 11:25 AM EST
--- OUTSIDE RECORDS SUMMARY | 2024-09-08 11:25 | XMS_ITS | Clinical Summary ---
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 hn's colitis (HCC) Bronchitis, not specified as [...] 2013 Zoster Vaccines (1 of 2) 2013 Cholesterol Screening (Lipid Panel) 06/24/2022 Colorectal Cancer Screening: Colonoscopy 06/24/2022 Depression Screening 06/24/2022 HIV Screening 06/24/2022 Hepatitis C Screening 06/24/2022 Social Influencers of Health Screening 06/24/2022 COVID-19 Vaccine (1 - 2023-2 5 season) 2024 Influenza Vaccine (#1) 2024 05/22/2016 DTaP,Tdap,and Td Vaccines (2 - Td or Tdap) 12/01/2024 12/01/2014 RSV Immunization Patients 60 + Years Old [...] age to complete this topic Care Teams Director Food Safety Relationship Specialty Start Date End Date Kayla Galaviz MD PCP - General 03/02/23
--- OUTSIDE RECORDS SUMMARY | 2024-09-08 11:25 | XMS_ITS ---
Author Organization [facility] Address [address] [place] [address] Care Team Providers Care Customer Program Specialist Name Role Phone Prudencio Stroud MD Primary Care Provider Nathaniel Reynoso Pavithra Unavailable [phone] Allergies Allergen (clinical drug ingredient) Drug/Non Drug [...] 024 Encounters Encounter Location Date Provider Diagnosis [facility] [place] [address] [place] [address] 02/04/2024 Pavithra Reynoso Osteoarthritis of midtarsal joint [...] JAROD WORTHINGTON, Richard BDOB:1964 (58 yo M)Acc No.[id number]:02/04/2024 Progress Note Patient:?Richard Greene III B Provider:?Pavithra Reynoso DPM :1965???Age:58 Y???Sex:Male David e:02/04/2024 Address:[address] [place], [place] [id number] Pcp:Kayla Galaviz MD Subjective: * Chief Complaints: [...] Reynoso DPM Date:?2023 Generated for Amador baca/Zana/Karina on:?09/08/2024 11:25 AM EST History and Physical Notes * [...]
--- OUTSIDE RECORDS SUMMARY | 2024-09-08 11:25 | XMS_ITS | Patient Health Record ---
Author Organization [facility] Address [address] [place] [address] Care Team Providers Care Installment Account Checker Name Role Phone Prudencio Stroud MD Primary Care Provider Pavithra Ro Unavailable [phone] Allergies Allergen (clinical drug ingredient) Drug/Non Drug [...] primary osteoarthritis of the ankle and/or foot ([id number]) Primary osteoarthritis, left ankle and foot (M19.072) Active confirmed Problem [id number] Other chronic pain (G89.29) Active confirmed Problem [id number] MS (multiple sclerosis) (G35) Active confirmed Problem Osteoarthritis of midtarsal joint of left foot (1478577071661344 ) Osteoarthritis of midtarsal joint of left foot (M19.072) Active confirmed Vital Signs Blood pressure diastolic 75 mm Hg 07/07/2024 Height 6ft1in in 07/07/2024 Blood pressure systolic 129 mm Hg 07/07/2024 Weight 235 lbs 07/07/2024 BMI 31 kg/m2 07/07/2024 Encounters Encounter [facility] Date [facility] [address] [facility]/15/2023 Pavithra Black Pain in left foot M79.672 ; Osteoarthritis of midtarsal joint of left foot M19.072 ; Pain in left ankle and joints of left foot M25.572 ; Bursitis of left foot M77.52 ; Left foot drop M21.372 and Other chronic pain G89.[address] [address] 02/04/2024 Pavithra Black Osteoarthritis of midtarsal joint of left foot M19.072 ; Edema, lower extremity R60.0 ; Pain in left foot M79.672 ; Pain in left ankle and joints of left foot M25.572 ; Bursitis of left foot M77.52 ; Left foot drop M21.372 and Other chronic pain G89.[address] [address] 07/07/2024 Pavithra Black Osteoarthritis of midtarsal joint of left foot M19.072 ; Edema, lower extremity R60.0 ; Pain in left foot M79.672 ; Pain in left ankle and joints of left foot M25.572 ; Bursitis of left foot M77.52 ; Left foot drop M21.372 and Other chronic pain G89.29 [facility] [address] [address] 10/29/2023 Pavithra Reynoso [facility] [address] [address] 07/30/2024 Pavithra Reynoso Assessments Encounter Date Diagnosis [...] Medicare [employer] [address] [place] [address] [id number] Jc III, Richard Self - patient is the insured [facility] [address] [place] [id number] Jc III, Richard Self - patient is the insured Medical (General) History Medical History History ICD Code Crohns disease Multiple sclerosis Chicken pox left ankle swelling Elevated Ferritin Hemochromatosis 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
--- OUTSIDE RECORDS SUMMARY | 2024-09-08 11:26 | XMS_ITS ---
Author Organization [facility] Address [address] [place] [address] Care Team Providers Care Payment Analyst Name Role Phone Prudencio Stroud MD Primary Care Provider Nathaniel Reynoso Pavithra Unavailable [phone] Allergies Allergen (clinical drug ingredient) Drug/Non Drug [...] 024 Encounters Encounter Location Date Provider Diagnosis [facility] [place] [address] [place] [address] 07/07/2024 Pavithra Reynoso Osteoarthritis of midtarsal joint [...] JAROD WORTHINGTON, Richard BDOB:1964 (59 yo M)Acc No.[id number]:07/07/2024 Progress Note Patient:?JAROD WORTHINGTON, Richard B Provider:?Pavithra Reynoso DPM :1965???Age:59 Y???Sex:Male David e:07/07/2024 Address:[address] [place], [place] [id number] Pcp:Prudencio Stroud MD Subjective: * Chief Complaints: [...]
[2024-09-08 11:29] VITALS: BP 130/70; PULSE 67; RESP 14; TEMP 36.3; O2SAT 94; BMI 31.5
== END 2024-09-08 12:25 | disposition home or self-care (01) ==
PROVIDERS: PCP Internal Medicine; Visit Provider Family Medicine
DX: I10 Essential (primary) hypertension (principal); R91.1 Solitary pulmonary nodule; R79.89 Other specified abnormal findings of blood chemistry; Z87.891 Personal history of nicotine dependence

== ENCOUNTER → 2024-09-08 11:22 | Outpatient (BNVA) | payer OTHER, MEDICARE, SELFPAY | PROVIDERS: PCP Internal Medicine; Visit Provider Family Medicine ==

== ENCOUNTER 2024-09-17 13:00 | Outpatient (AMB) | payer OTHER, MEDICARE, SELFPAY ==
--- NOTE | 2024-09-17 13:01 | A.OFFVIS_ITS ---
Intake Visit Reasons: 1y follow up Intake Note: Patient is Present for 1y Follow Up Urology Medication: Terazosin,vitamin b Antibiotic Allergies: None Blood Thinners: None Attractions Associate Required: No Allergies No Known Allergies [No Known Allergies*] Allergy (Verified 09/17/24 13:02) HPI Comments Details: Richard is a pleasant male. He is a patient Dr. Galaviz. Seen for the following urologic conditions - lower urinary tract symptoms - overactive bladder - multiple sclerosis One year follow-up Telemedicine Evaluation 15 min Consultation Girlt[employer] Ra Video Remained stable with current medications Terazosin 10 mg refilled Nocturia x1, control of urge and frequency good bladder emptying Prior cystoscopy with tight bladder neck Discussed DSD - detrusor sphincter dyssynergia Lower urinary tract symptoms Weakness of stream with urinary urgency and feeling of incomplete emptying Background of multiple sclerosis diagnosed in 2014 Had trialed Flomax with minimal effect Current medications include terazosin 10 mg Cystoscopy - tight bladder neck PSA 10/11 1.2, 04/15 1.7 PFSH Medical History (Updated 08/22/24 @ 09:16 by Hannah Oden PA-C) Personal history of nicotine dependence BPH (benign prostatic hyperplasia) Hyperlipidemia Crohn's disease (~2005) IBS (irritable bowel syndrome) Multiple sclerosis (~2014) Surgical History (Updated 06/27/24 @ 10:55 by Hannah Oden PA-C) History of lung surgery History of nasal septoplasty History of bronchoscopy History of vasectomy H/O colonoscopy Family History Father DM (diabetes mellitus) Social History (Updated 06/27/24 @ 10:48 by Hannah Oden PA-C) Housing: House Patient Tobacco Use Status: Former Tobacco user Years Smoked: (onset 12yo, 1ppd x 40yrs, 40pyh - quit 2014) e-Cigarette/Vaping Use: Never Used Current occupational status: unemployed and retired Cognitive needs: No Hearing needs: No Vision needs: Yes Review of Systems Const All systems reviewed & are unremarkable except as noted in HPI and below Reports no additional complaints Resp Reports no additional complaints GI Reports no additional complaints Reports as per HPI Musc Reports no additional complaints Physical Exam Telemedicine evaluation Appropriate responses Regular breathing rate and rhythm HEENT Head: Yes normal to inspection Ears: hearing grossly normal bilaterally Eyes General: appearance normal, both eyes and all related structures Neck Neck: Yes normal visual inspection Chest Chest palpation & inspection: normal inspection of the chest Resp Effort & Inspection: normal respiratory effort and able to speak in complete sentences Telehealth Telehealth Telehealth Platform: [employer] Location of provider rendering services: practice address Location of patient: address on file Patient Identification confirmed using: Name, : Yes Telehealth method: video Patient verbally consented to treatment: Yes Patient verbally consented to billing insurance company: Yes Patient informed of any privacy concerns related to visit: Yes Minutes spent on Phone/Video with Pt.: 15 Assessment & Plan Assessment & Plan (1) Overactive bladder: Code(s): N32.81 - Overactive bladder Category: Medical (2) BPH (benign prostatic hyperplasia): Code(s): N40.0 - Benign prostatic hyperplasia without lower urinary tract symptoms Category: Medical Plan Twelve month follow-up office Medications: Refilled terazosin 10 mg PO BEDTIME 90 days 90 caps 3RF N40.0 - Benign prostatic hyperplasia without lower urinary tract symptoms Patient Instructions: This note is constructed using voice recognition software. While every effort has been made to ensure accuracy vice president of human resources errors may have been included. Imaging studies, laboratory and physical exam results were discussed and reviewed in detail. No major barriers to patient understanding were identified. An opportunity to ask questions regarding the treatment plan was provided. All questions were answered. The patient expressed understanding and agreement with the above treatment plan. The patient is aware they should contact our office by phone for worsening of their current condition or the appearance of new urologic symptoms. Compliance is encouraged with any medications and followup testing that is ordered. It is a privilege to participate in the urologic care of your patient. If you have any questions or concerns regarding treatment for the above conditions, or other urologic issues, please do not hesitate to contact me. The office telephone contact is [phone]. Sincerely, Dr Rodo Quiroz MD, [facility] - Urology Compassionate Specialist Care for the Genitourinary System Coding Level of Care Code Tele Est Pt Level 4 (29889) Diagnoses Overactive bladder N32.81 BPH (benign prostatic hyperplasia) N40.0
--- OUTSIDE RECORDS SUMMARY | 2024-09-17 15:55 | XMS_ITS ---
Author Organization [facility] Address [address] [place] [address] Care Team Providers Care Lap Layer Name Role Phone Prudencio Stroud MD Primary Care Provider Nathaniel Reynoso Pavithra Unavailable [phone] Allergies Allergen (clinical drug ingredient) Drug/Non Drug [...] 024 Encounters Encounter Location Date Provider Diagnosis [facility] [place] [address] [place] [address] 07/07/2024 Pavithra Reynoso Osteoarthritis of midtarsal joint [...] JAROD WORTHINGTON, Richard BDOB:1964 (59 yo M)Acc No.[id number]:07/07/2024 Progress Note Patient:?JAROD WORTHINGTON, Richard B Provider:?Pavithra Reynoso DPM :1965???Age:59 Y???Sex:Male David e:07/07/2024 Address:[address] [place], [place] [id number] Pcp:Prudencio Stroud MD Subjective: * Chief Complaints: [...] Reynoso DPM Date:?2023 Generated for Amador baca/Zana/Karina on:?09/17/2024 03:55 PM EST History and Physical Notes * [...]
--- OUTSIDE RECORDS SUMMARY | 2024-09-17 15:55 | XMS_ITS ---
Author Organization [facility] Address [address] [place] [address] Care Team Providers Care Special Education Paraprofessional Name Role Phone Prudencio Stroud MD Primary Care Provider Pavithra Ro [phone] REASON FOR VISIT balance Encounters Encounter Location Date Provider Diagnosis [facility] [address] [place] [address] 07/30/2024 Pavithra Reynoso Plan Of Treatment No Information Progress Notes * Richard OLIVERA III BDOB:1964 (59 yo M)Acc No.[id number]:07/30/2024 Patient:?Richard OLIVERA III :1965???Age:59 Y???Sex:Male Address:[address] [place] [address], [address] * true * Date:? Generated for Amador baca/Zana/eTransmitting on:?09/17/2024 03:54 PM EST
--- OUTSIDE RECORDS SUMMARY | 2024-09-17 15:55 | XMS_ITS | Patient Health Record ---
[facility] Address [address] [place] [address] Care Team Providers Care Delivery Specialist Name Role Phone Prudencio Stroud MD Primary Care Provider Pavithra Ro Unavailable [phone] Allergies Allergen (clinical drug ingredient) Drug/Non Drug [...] primary osteoarthritis of the ankle and/or foot (125348373) Primary osteoarthritis, left ankle and foot (M19.072) Active confirmed Problem 60835898 Other chronic pain (G89.29) Active confirmed Problem 35628349 MS (multiple sclerosis) (G35) Active confirmed Problem Osteoarthritis of midtarsal joint of left foot (5926489116868041 ) Osteoarthritis of midtarsal joint of left foot (M19.072) Active confirmed Vital Signs Blood pressure diastolic 75 mm Hg 07/07/2024 Height 6ft1in in 07/07/2024 Blood pressure systolic 129 mm Hg 07/07/2024 Weight 235 lbs 07/07/2024 BMI 31 kg/m2 07/07/2024 Encounters Encounter [facility] Date [facility] [address] [facility]/15/2023 Pavithra Black Pain in left foot M79.672 ; Osteoarthritis of midtarsal joint of left foot M19.072 ; Pain in left ankle and joints of left foot M25.572 ; Bursitis of left foot M77.52 ; Left foot drop M21.372 and Other chronic pain G89.[address] [address] 02/04/2024 Pavithra Black Osteoarthritis of midtarsal joint of left foot M19.072 ; Edema, lower extremity R60.0 ; Pain in left foot M79.672 ; Pain in left ankle and joints of left foot M25.572 ; Bursitis of left foot M77.52 ; Left foot drop M21.372 and Other chronic pain G89.[address] [address] 07/07/2024 Pavithra Black Osteoarthritis of midtarsal joint of left foot M19.072 ; Edema, lower extremity R60.0 ; Pain in left foot M79.672 ; Pain in left ankle and joints of left foot M25.572 ; Bursitis of left foot M77.52 ; Left foot drop M21.372 and Other chronic pain G89.29 [facility] [address] [address] 10/29/2023 Pavithra Reynoso [facility] [address] [address] 07/30/2024 Pavithra Reynoso Assessments Encounter Date Diagnosis [...] Medicare National Govt Svcs Inc [address] [place] [address] [id number] Jc III, Richard Self - patient is the insured [facility] [address] [facility] [place] [address] [phone] [id number] 0001 Jc III, Richard Self - patient is the insured Medical (General) History Medical History History ICD Code Crohns disease Multiple sclerosis Chicken pox left ankle swelling Elevated Ferritin Hemochromatosis 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
--- OUTSIDE RECORDS SUMMARY | 2024-09-17 15:55 | XMS_ITS | Clinical Summary ---
Author Organization [facility] Address [address] [place] [address] Care Team Providers Care Geodesist Name Role Phone Kayla Galaviz MD Primary Care Provider [phone] Medical History Medical History Date Comments Crohn's colitis (CMS/HCC) 02/28/2010 DX:Band Splitter hn's colitis (HCC) Bronchitis, not specified as [...] age to complete this topic Care Teams Geodesist Relationship Specialty Start Date End Date Kayla Galaviz MD PCP - General 03/02/23
--- OUTSIDE RECORDS SUMMARY | 2024-09-17 15:55 | XMS_ITS ---
Author Organization [facility] Address [address] [place] [address] Care Team Providers Care Aviation Warfare Systems Operator Name Role Phone Prudencio Stroud MD Primary Care Provider Nathaniel Reynoso Pavithra Unavailable [phone] Allergies Allergen (clinical drug ingredient) Drug/Non Drug [...] 024 Encounters Encounter Location Date Provider Diagnosis [facility] [place] [address] [place] [address] 02/04/2024 Pavithra Reynoso Osteoarthritis of midtarsal joint [...] JAROD WORTHINGTON, Richard BDOB:1964 (58 yo M)Acc No.[id number]:02/04/2024 Progress Note Patient:?Richard Greene III B Provider:?Pavithra Reynoso DPM :1965???Age:58 Y???Sex:Male David e:02/04/2024 Address:[address] [place], [place] [address] Pcp:Kayla Galaviz MD Subjective: * Chief Complaints: [...] * Provider:Otis Reynoso DPM Date:?2023 Generated for Amador baca/Zana/Karina [...]
== END 2024-09-17 13:38 | disposition home or self-care (01) ==
LOC: HO.HUSH 13:00
PROVIDERS: PCP Internal Medicine; Visit Provider Urology
DX: N32.81 Overactive bladder (principal); N40.0 Benign prostatic hyperplasia without lower urinary tract symptoms
CPT/HCPCS: 99214

== ENCOUNTER 2024-11-06 11:17 | Outpatient (AMB) | payer OTHER, MEDICARE, SELFPAY ==
--- NOTE | 2024-11-06 11:29 | A.OFFPC_ITS ---
Vital Signs 11/06/24 11:33 Height 6 ft 1 in Weight 239 lb 2 oz BMI 31.5 BP 153/82 H Blood Pressure Location Rt brachial Position Sitting Respiration 16 Pulse 64 Pulse Source Pulse Oximeter Temp 98.2 F Temp Source Oral Pulse Oximetry (%) 96 Oxygen Delivery Method Room Air Intake Visit Reasons: f/u CT scan, HTN Intake Note: patient here for follow up on HYN and CT scan Material Handler 2Nd Shift Required: No Allergies No Known Allergies [No Known Allergies*] Allergy (Verified 11/06/24 11:31) Tobacco use date assessed: 11/06/24 Dental Screening Dental Screen Date: 11/06/24 Did you have a dental visit in the last 12 months?: Yes Did you have a dental problem in the last 6 months where you did not have access to dental care?: No Was dental information given to patient?: Patient has dentist HPI f/u CT scan, HTN HPI Details 59 y/o male presents to f/u HTN, chronic conditions. Blood pressure today 153/82, 64p. He is on losartan 50mg daily. Pt notes he is no longer smoking. [facility] Medical History (Updated 08/22/24 @ 09:16 by Hannah Oden PA-C) Personal history of nicotine dependence BPH (benign prostatic hyperplasia) Hyperlipidemia Crohn's disease (~2005) IBS (irritable bowel syndrome) Multiple sclerosis (~2014) Surgical History (Updated 06/27/24 @ 10:55 by Hannah Oden PA-C) History of lung surgery History of nasal septoplasty History of bronchoscopy History of vasectomy H/O colonoscopy Family History Father DM (diabetes mellitus) Social History (Updated 06/27/24 @ 10:48 by Hannah Oden PA-C) Housing: House Patient Tobacco Use Status: Former Tobacco user Years Smoked: (onset 12yo, 1ppd x 40yrs, 40pyh - quit 2014) e-Cigarette/Vaping Use: Never Used Second Hand Smoke Exposure: No Current occupational status: unemployed and retired Current occupational exposures/hazards: No Cognitive needs: No Hearing needs: No Vision needs: Yes Questionnaire PHQ-9 Over the last 2 weeks, how often have you been bothered by any of the following problems? 1. Little interest or pleasure in doing things: not at all 2. Feeling down, depressed, or hopeless: not at all 3. Trouble falling or staying asleep, or sleeping too much: not at all Source: Developed by Drs. Markos Albert, Agueda Auguste, Cristopher Ruiz and colleagues, with an educational viridiana from [employer]. Thrive Questionnaire Date Thrive assessed: 09/08/24 I am a: Patient What is your living situation today?: I have a steady place to live Within the past 12 months, did the food you bought not last and you didn't have the money to get more?: I choose not to answer this question Within the past 12 months, did you worry whether your food would run out before you got money to buy more?: I choose not to answer this question Do you have trouble paying for medicines?: No Do you have trouble getting transportation to medical appointments?: No Do you have trouble paying your heating and electricity bill?: No Do you have trouble taking care of your child, family member or friend?: No Do you have trouble with day-to-day activities such as bathing, preparing meals, shopping, managing finances, etc.?: No Are you currently unemployed and looking for a job?: No Are you interested in more education?: No Please select the resources that you would like help with: None Currently or been in a relationship where the following occur: I choose not to answer THRIVE Score: 0 AUDIT C Alcohol Use Questionnaire (AUDIT-C) 1. How often do you have a drink containing alcohol?: 2-3 times a week 2. How many drinks containing alcohol do you have on a typical day when you are drinking?: 3 or 4 3. How often do you have six or more drinks on one occasion?: Less than monthly Total Score: 5 JING-7 AMB Questionnaire JING-7 Date JING - 7 assessed: 04/16/24 Feeling nervous, anxious, or on edge: 0 = Not at all Not being able to stop or control worryin = Not at all Worrying too much about different things: 0 = Not at all Trouble relaxin = Several days Being so restless that it is hard to sit still: 0 = Not at all Becoming easily annoyed or irritable: 1 = Several days Feeling afraid as if something awful might happen: 0 = Not at all Total JING-7 score (0-4 normal; 5-9 mild; 10-14 moderate; 15-21 severe): 2 Source: Developed by Drs. Markos Albert, Agueda Auguste, Cristopher Ruiz and colleagues, with an educational viridiana from [employer]. Review of Systems Const Denies chills, Denies fatigue, Denies fever(s), Denies headache(s) and Denies weakness ENT Denies dizziness and Denies headache(s) Card Denies dyspnea Resp Denies cough, Denies dyspnea, Denies wheezing and Denies other (shortness of breath) Musc Denies numbness and Denies tingling Neuro Denies dizziness, Denies headache(s), Denies numbness, Denies tingling and Denies weakness Psych Denies anxiety and Denies depression Endo Denies fatigue Aller/Immun Denies wheezing Physical exam (Primary Care) Vital Signs: Last Vital Signs Temp 98.2 F 11/06/24 11:33 Pulse 64 11/06/24 11:33 Resp 16 11/06/24 11:33 BP 153/82 H 11/06/24 11:33 Pulse Ox 96 11/06/24 11:33 Oxygen Delivery Method Room Air 11/06/24 11:33 BMI result Body Mass Index 31.5 Tobacco/Smoking Status: Tobacco use Status Tobacco use date assessed 11/06/24 11/06/24 11:35 Patient Tobacco Use Status Former Tobacco user 11/06/24 11:35 e-Cigarette/Vaping Use Never Used 11/06/24 11:35 Thrive Assessment: Date of Thrive Assessment Date Thrive assessed 09/08/24 11/06/24 11:35 Currently or been in a relationship where the following occur: I choose not to answer Const General: well developed; No acute distress Nutritional Appearance: well nourished Orientation/consciousness: patient oriented x3 HENMT Head: Yes normocephalic and Yes atraumatic Eyes General: appearance normal, both eyes and all related structures Pupils: Equal, round and reactive pupils present EOM: EOMs intact bilaterally Resp Effort & Inspection: normal respiratory effort Auscultation: clear to auscultation bilaterally Cardio Rate: regular rate Rhythm: regular rhythm Heart sounds: S1 normal heart sound present, S2 normal heart sound present, no gallops, no murmurs and no rubs Neuro General: patient oriented x3 and gait normal Cranial nerves: Yes Equal, round and reactive pupils present Psych Affect: normal affect Coding Level of Care Code Est Pt Level 4 (60508) Diagnoses Hypertension I10 History of smoking Z87.891 Pulmonary nodule, right R91.1 Elevated TSH R79.89 Multiple sclerosis G35 Assessment & Plan Assessment & Plan (1) Hypertension: Code(s): I10 - Essential (primary) hypertension Category: Medical Plan: Blood?pressure?is?too?high. ?Goal?is?less?than?140/90 Changing?losartan?50?mg?daily?to?losartan-hydrochlorothiazide?50/12.5mg daily. (2) History of smoking: Code(s): Z87.891 - Personal history of nicotine dependence Category: Social Hx Plan: Patient?is?no?longer?smoking Gets?low-dose?CT?scan-see?below (3) Pulmonary nodule, right: Comment: (1.0 x 0.6 cm right apex nodule - on 06/2024 LDCT unchanged compared to 2019 scan - will repeat scan 06/2025) Code(s): R91.1 - Solitary pulmonary nodule Category: Medical Plan: Most?recent?LDCT?shows no?change?in?solitary?pulmonary?nodule Will?continue monitoring. ?Has?repeat?scan?in?June (4) Elevated TSH: Code(s): R79.89 - Other specified abnormal findings of blood chemistry Category: Medical Plan: Mildly?elevated?TSH?levels. Remains?asymptomatic Rechecking?thyroid?hormone?levels?with?next?blood?draw?him?discuss?at?next?visit (5) Multiple sclerosis: Onset Date: ~2014 Comment: f/u Nabil Rivera side weakness Code(s): G35 - Multiple sclerosis Category: Medical Plan: Followed?by? Stable Ambulating?well?with?a?cane Orders: Orders Comprehensive [place]. Panel Fast Today I10 - Essential (primary) hypertension, Z00.00 - Encounter for general adult medical examination without abnormal findings Free T4 (Free Thyroxine) Today E03.9 - Hypothyroidism, unspecified, R79.89 - Other specified abnormal findings of blood chemistry Thyroid Stimulating Hormone Today E03.9 - Hypothyroidism, unspecified, R79.89 - Other specified abnormal findings of blood chemistry Triiodothyronine T3 Total Today E03.9 - Hypothyroidism, unspecified, R79.89 - Other specified abnormal findings of blood chemistry Microalbumin, Random (w Creat) Today I10 - Essential (primary) hypertension UA CC w/rflx Micro + Cult Today I10 - Essential (primary) hypertension, Z00.00 - Encounter for general adult medical examination without abnormal findings Medications: New losartan-hydrochlorothiazide 50-12.5 mg 1 tab PO DAILY 90 tabs 2RF 90 days Discontinued losartan Discontinued Reason: Doctor's Order 50 mg PO DAILY 90 days 90 tabs 3RF
[2024-11-06 11:33] VITALS: BP 153/82; PULSE 64; RESP 16; TEMP 36.8; O2SAT 96; BMI 31.5
--- OUTSIDE RECORDS SUMMARY | 2024-11-06 13:57 | XMS_ITS ---
Author Organization [facility] Address [address] [place] [address] Care Team Providers Care Director Of Institutional Sales Name Role Phone Prudencio Stroud MD Primary Care Provider Pavithra Ro [phone] REASON FOR VISIT balance Encounters Encounter Location Date Provider Diagnosis [facility] [address] [place] [address] 07/30/2024 Pavithra Reynoso Plan Of Treatment No Information Progress Notes * Richard OLIVERA III BDOB:1964 (59 yo M)Acc No.[id number]:07/30/2024 Patient:?Richard OLIVERA III :1965???Age:59 Y???Sex:Male Address:[address] [place] [address], [address] * true * Date:? Generated for Tini keven/Zana/eTransmitting on:?11/06/2024 01:56 PM EDT
--- OUTSIDE RECORDS SUMMARY | 2024-11-06 13:57 | XMS_ITS | Clinical Summary ---
Author Organization [facility] Address [address] [place] [address] Care Team Providers Care Crotch Breaker Name Role Phone Kayla Galaviz MD Primary Care Provider Medical History Medical History Date Comments Crohn's colitis ([facility] V24 , [facility] V28) 02/28/2010 DX:Crohn's colitis (HCC) Bronchitis, not specified as acute or chronic DX:Bronchitis, not specified as acute or chronic Multiple sclerosis ([facility] V24, [facility] V28) DX:Multiple sclerosis (HCC) Family History Medical History Relation [...] on file Obstetrics History Plan of Treatment Upcoming Encounters Date Type Department Care Team (Late st Contact Info) Description 12/24/2024 2:40 PM EDT Office Visit Gastroenterology - [address] [facility] [address] [place] [address] Salvador Topete MD [address] [facility] [address] [place], [place] [id number] Health Maintenance Due Date Last Done Comments Pneumococcal Vaccine: 50+ Ye ars (1 of 1 - PCV) 2013 Zoster Vaccines (1 of 2) 2013 Cholesterol Screening (Lipid Panel) 06/24/2022 Colorectal Cancer Screening: Colonoscopy 06/24/2022 Depression Screening 06/24/2022 HIV Screening 06/24/2022 Hepatitis C Screening 06/24/2022 Social Influencers of Health Screening 06/24/2022 COVID-19 Vaccine (1 - 2023-2 5 season) 2024 DTaP,Tdap,and Td Vaccines (2 - Td or Tdap) 12/01/2024 12/01/2014 Influenza Vaccine (Season Ended) 2025 05/22/20 16 RSV Immunization Adult Patie nts (1 - 1-dose 75+ series) 2038 HIB [...] age to complete this topic Meningococcal B Vaccine Aged Out No l onger eligible based on patient's age to complete [...] on patient's age to complete this topic Insurance Care Teams Crotch Breaker Relationship Specialty Start Date End Date Kayla Galaviz MD PCP - General 03/02/23
== END 2024-11-06 11:57 | disposition home or self-care (01) ==
LOC: HO.HMCFM 11:18
PROVIDERS: PCP Family Medicine; Visit Provider Family Medicine
DX: I10 Essential (primary) hypertension (principal); Z87.891 Personal history of nicotine dependence; G35 Multiple sclerosis; R91.1 Solitary pulmonary nodule; R79.89 Other specified abnormal findings of blood chemistry

== ENCOUNTER → 2024-11-06 11:17 | Outpatient (BNVA) | payer OTHER, MEDICARE, SELFPAY | PROVIDERS: PCP Family Medicine; Visit Provider Family Medicine ==

== ENCOUNTER 2024-12-01 10:22 | Outpatient (REF) | payer OTHER, MEDICARE, SELFPAY ==
--- OUTSIDE RECORDS SUMMARY | 2024-12-01 10:56 | XMS_ITS ---
Author Organization [facility] Address [address] [place] [address] Care Team Providers Care Architectural Job Captain Name Role Phone Prudencio Stroud MD Primary Care Provider Pavithra Ro [phone] REASON FOR VISIT balance Encounters Encounter Location Date Provider Diagnosis [facility] [address] [place] [address] 07/30/2024 Pavithra Reynoso Plan Of Treatment No Information Progress Notes * Richard OLIVERA III BDOB:1964 (59 yo M)Acc No.[id number]:07/30/2024 Patient:?Richard OLIVERA III :1965???Age:59 Y???Sex:Male Address:[address] [place] [address], [address] * true * Date:? Generated for Tini keven/Zana/eTransmitting on:?12/01/2024 10:56 AM EDT
--- OUTSIDE RECORDS SUMMARY | 2024-12-01 10:56 | XMS_ITS | Patient Health Record ---
Author Organization [facility] Address [address] [place] [address] Care Team Providers Care Pricing Supervisor Name Role Phone Prudencio Stroud MD Primary Care Provider Pavithra Ro Unavailable [phone] Allergies Allergen (clinical drug ingredient) Drug/Non Drug Allergy documented on EMR Reaction Allergy Type Onset Date Status Seasonale Unknown Drug Allergy Active Reason For Referral No Information Medications Medication [...] primary osteoarthritis of the ankle and/or foot (624335338) Primary osteoarthritis, left ankle and foot (M19.072) Active confirmed Problem 02682013 Other chronic pain (G89.29) Active confirmed Problem 15521701 MS (multiple sclerosis) (G35) Active confirmed Problem Osteoarthritis of midtarsal joint of left foot (7569126674807522 ) Osteoarthritis of midtarsal joint of left foot (M19.072) Active confirmed Vital Signs Blood pressure diastolic 75 mm Hg 07/07/2024 Height 6ft1in in 07/07/2024 Blood pressure systolic 129 mm Hg 07/07/2024 Weight 235 lbs 07/07/2024 BMI 31 kg/m2 07/07/2024 Encounters Encounter Location Date Provider Diagnosis [address] [address] 02/04/2024 Pavithra Edgardo Osteoarthritis of midtarsal joint of left foot M19.072 ; Edema, lower extremity R60.0 ; Pain in left foot M79.672 ; Pain in left ankle and joints of left foot M25.572 ; Bursitis of left foot M77.52 ; Left foot drop M21.372 and Other chronic pain G89.[address] [address] 07/07/2024 Pavithra Edgardo Osteoarthritis of midtarsal joint of left foot M19.072 ; Edema, lower extremity R60.0 ; Pain in left foot M79.672 ; Pain in left ankle and joints of left foot M25.572 ; Bursitis of left foot M77.52 ; Left foot drop M21.372 and Other chronic pain G89.[address] [address] 07/30/2024 Pavithra Edgardo Assessments Encounter Date Diagnosis (ICD Code) Assessment [...] of left foot (ICD-10 - M25.572) 07/07/2024 Pain in left ankle and joints [...] Medicare National Govt Svcs Inc [address] [facility] [address] [id number] Jc III, Richard Self - patient is the insured [facility] [address] [facility] [place] [address] [phone] [id number] Hill III, Richard Self - patient is the insured Medical (General) History Medical History History ICD Code Crohns disease Multiple sclerosis Chicken pox left ankle swelling Elevated Ferritin Hemochromatosis 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
--- OUTSIDE RECORDS SUMMARY | 2024-12-01 10:56 | XMS_ITS | Clinical Summary ---
Author Organization [facility] Address [address] [place] [address] Care Team Providers Care Manager Farm Name Role Phone Kayla Galaviz MD Primary Care Provider [phone] Medications mesalamine (LIALDA) 1.2 gram EC tabletIndications :Crohn's disease of colon without complication ([facility] V24, [facility] V28) TAKE 2 TABLETS BY MOUTH EVERY DAY 180 tablet 5 Active Medical History Medical History Date Comments Crohn's colitis ([facility] V24 , [facility] V28) 02/28/2010 DX:Crohn's colitis (HCC) Bronchitis, not specified as acute or chronic DX:Bronchitis, not specified as acute or chronic Multiple sclerosis ([facility] V24, [facility] V28) DX:Multiple sclerosis (HCC) Family History Medical [...] Office Visit Gastroenterology - [address] [place] [address] Salvador Topete MD [address] [address] Health Maintenance Due Date Last Done Comments [...] patient's age to complete this topic Insurance [facility] Care Teams Manager Farm Relationship Specialty Start Date End Date Kayla Galaviz MD PCP - General 03/02/23
--- OUTSIDE RECORDS SUMMARY | 2024-12-01 10:57 | XMS_ITS ---
Author Organization [facility] Address [address] [place] [address] Care Team Providers Care Curer Acid Drum Name Role Phone Prudencio Stroud MD Primary Care Provider Nathaniel ReynosoPavithra Unavailable [phone] Allergies Allergen (clinical drug ingredient) Drug/Non Drug [...] 024 Encounters Encounter Location Date Provider Diagnosis [facility] [place] [address] [place] [address] 02/04/2024 Pavithra Reynoso Osteoarthritis of midtarsal joint [...] JAROD WORTHINGTON, Richard BDOB:1964 (58 yo M)Acc No.[id number]:02/04/2024 Progress Note Patient:?Richard Greene III B Provider:?Pavithra Reynoso DPM :1965???Age:58 Y???Sex:Male David e:02/04/2024 Address:[address] [place], [place] [id number] Pcp:Kayla Galaviz MD Subjective: * Chief Complaints: [...] * Sign off status: Completed true * Provider:?aPvithra Reynoso DPM Date:?2023 Generated for Amador baca/Zana/Karina on:?12/01/2024 10:56 AM EDT History and Physical Notes * HPI (History [...]
--- OUTSIDE RECORDS SUMMARY | 2024-12-01 10:57 | XMS_ITS ---
Author Organization [facility] Address [address] [place] [address] Care Team Providers Care Concrete Batcher Name Role Phone Prudencio Stroud MD Primary Care Provider Nathaniel Reynoso Pavithra Unavailable [phone] Allergies Allergen (clinical drug ingredient) Drug/Non Drug [...] 024 Encounters Encounter Location Date Provider Diagnosis [facility] [place] [address] [place] [address] 07/07/2024 Pavithra Reynoso Osteoarthritis of midtarsal joint [...] JAROD WORTHINGTON, Richard BDOB:1964 (59 yo M)Acc No.[id number]:07/07/2024 Progress Note Patient:?JAROD WORTHINGTON, Richard B Provider:?Pavithra Reynoso DPM :1965???Age:59 Y???Sex:Male David e:07/07/2024 Address:[address] [place], [place] [id number] Pcp:Prudencio Stroud MD Subjective: * Chief Complaints: [...]
[2024-12-01 11:47] LABS: Alanine Aminotransferase 23 U/L (0-40); Albumin Level 4.3 g/dL (3.5-5.0); Anion Gap 13 (12-20); Aspartate Amino Transferase 32 U/L (5-37); Bilirubin Total 1.1 mg/dL (0.0-1.0); Blood Urea Nitrogen 18 mg/dL (9-16); Calcium 9.4 mg/dL (8.4-10.2); Carbon Dioxide 27 mmol/L (22-29); Chloride 103 mmol/L (96-108); Estimated Glomerular Filt Rate > 60; Glucose Fasting 107 mg/dL (60-99); Potassium 4.3 mmol/L (3.3-5.1); Sodium 139 mmol/L (135-145)
[2024-12-01 12:06] LABS: Free T4 (Free Thyroxine) 0.83 ng/dL (0.71-1.85); Thyroid Stimulating Hormone 4.43 uIU/mL (0.32-4.0)
[2024-12-01 12:22] LABS: Alkaline Phosphatase 67 U/L (39-117)
[2024-12-02 05:22] LABS: Triiodothyronine T3 Total 74 ng/dL (76-181)
== END 2024-12-01 10:23 | disposition home or self-care (01) ==
LOC: HO.LAB 10:22
PROVIDERS: PCP Family Medicine; Visit Provider Family Medicine
DX: Z00.00 Encounter for general adult medical examination without abnormal findings (principal); I10 Essential (primary) hypertension; E03.9 Hypothyroidism, unspecified; R79.89 Other specified abnormal findings of blood chemistry
CPT/HCPCS: 36415; 80053; 81003; 82043; 82570; 84439; 84443; 84480

== ENCOUNTER 2025-01-27 13:27 | Outpatient (AMB) | payer OTHER, MEDICARE, SELFPAY ==
--- NOTE | 2025-01-27 14:02 | A.OFFVIS_ITS ---
Intake Visit Reasons: 6M/ms Allergies No Known Allergies (No Known Allergies*) Allergy (Verified 01/27/25 14:08) Medication List - Last Reconciled 01/27/25 by Patito Vaughn CNP albuterol sulfate 90 mcg/actuation (Ventolin HFA) 1 inh inhalation QID PRN cholecalciferol (vitamin D3) 25 mcg PO DAILY furosemide 40 mg PO DAILY losartan-hydrochlorothiazide 50-12.5 mg 1 tab PO DAILY 90 days mesalamine 2.4 grams PO DAILY mesalamine (Delzicol) 1,200 mg PO BID terazosin 10 mg PO BEDTIME 90 days teriflunomide (Aubagio) 14 mg PO DAILY vardenafil 20 mg PO DAILY PRN 30 days vitamin B complex PO DAILY HPI Comments Details: He was doing okay overall. Feels worse with the heat, more fatigue after being out in heat for extended period of time and takes about a day to recover. No new or worsening symptoms. Partial left foot drop that sometimes leads to tripping and left leg occasionally gives out. Fell last month onto knees and elbows when trying to putting away hose after doing some yard work in heat and had some scratches, did not hit head. Walking with cane. Goes for walks with dog almost every day. Sleep was up and down. Stable overall, some days better than others. Feels worse in heat. Swelling in left foot is better since starting losartan. Partial left foot drop, left leg occasionally gives out, few minor falls. Tried L AFO brace, but it ruined two pairs of shoes and no longer using. Not using exercise bike often. 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 Hot flashes and wakes up soaked. If he overdoes it, he gets some symptoms with fatigue and balance issues. Balance off at times. Bladder control is okay, no incontinence. Left ankle pain from 2 cysts and seeing orthopedics. Has been out on disability, applied for SS. Right side numb and tingly in hand, shoulders, ear, and around knee. MRI was consistent with MS. Initially treated with 6 days of IV solumedrol 1g. Spinal fluid showed 5 oligoclonal bands and increase IgG index. Diagnosed with MS 06/08/2015. [facility] Medical History (Updated 01/27/25 @ 14:14 by Patito Vaughn CNP) Colitis CTS (carpal tunnel syndrome) Lung cancer TIA (transient ischemic attack) Personal history of nicotine dependence BPH (benign prostatic hyperplasia) Hyperlipidemia Crohn's disease (~2005) IBS (irritable bowel syndrome) Multiple sclerosis (~2014) Surgical History (Updated 06/27/24 @ 10:55 by Hannah Oden PA-C) History of lung surgery History of nasal septoplasty History of bronchoscopy History of vasectomy H/O colonoscopy Family History Father DM (diabetes mellitus) Social History (Updated 06/27/24 @ 10:48 by Hannah Oden PA-C) Housing: House Patient Tobacco Use Status: Former Tobacco user Years Smoked: (onset 12yo, 1ppd x 40yrs, 40pyh - quit 2014) e-Cigarette/Vaping Use: Never Used Second Hand Smoke Exposure: No Current occupational status: unemployed and retired Current occupational exposures/hazards: No Cognitive needs: No Hearing needs: No Vision needs: Yes Review of Systems Const Denies chills, Denies daytime sleepiness, Reports difficulty sleeping, Denies fatigue, Denies fever(s), Reports frequent falls, Denies headache(s), Denies increased appetite, Denies poor appetite, Denies snoring, Denies weakness, Denies weight gain and Denies weight loss Eyes Denies loss of vision ENT Denies vertigo, Reports dizziness, Denies headache(s) and Denies neck pain Card Denies chest pain at rest, Denies chest pain with activity, Denies syncope, Denies leg edema, Denies palpitations, Denies dyspnea and Denies dyspnea on exertion Resp Denies cough, Denies dyspnea, Denies dyspnea on exertion and Denies snoring GI Denies abdominal pain, Denies constipation, Denies heartburn, Denies diarrhea and Denies nausea Denies urinary frequency, Denies urinary incontinence and Denies urinary urgency Musc Reports abnormal gait (balance difficulty), Denies back pain, Denies myalgias, Denies arthralgias, Denies neck pain, Reports numbness, Denies stiffness and Reports tingling Neuro Reports abnormal gait (balance difficulty), Denies vertigo, Reports dizziness, Denies syncope, Reports frequent falls, Denies headache(s), Denies lack of coordination, Denies loss of vision, Denies memory loss, Reports numbness, Denies Other visual disturbances, Denies restless legs, Denies seizure-like activity, Reports tingling, Denies paresthesias, Denies tremor(s) and Denies weakness Psych Denies anxiety, Denies depression, Denies memory loss, Denies visual amanda lucinations and Denies hallucinations Endo Denies fatigue and Denies palpitations Physical Exam Const Other: General Appearance:? normal, in no acute distress. Heart:? S1, S2 normal, no murmurs. Lungs:? clear anteriorly and posteriorly. Musculoskeletal:? normal. Extremities:? no edema. Psych:? alert, oriented, cognitive function intact, cooperative with exam. Neuro Other: Abnormal Neurological Findings:?Partial R CHERELLE. Minimal left drift. Bilateral hyperreflexia L>R. Plantars extensor. Minimal Dysmetria on FTN. Walking with cane, slightly broadbased gait.?LUE and LLE 5-/5 Mental Status: alert and oriented X 3. Normal attention, orientation, memory, and affect. Cranial Nerves: Pupils are equal, round, and reactive to light. External ocular muscles are intact. Visual glover are full, no ptosis. Face is symmetrical, no facial weakness or droop. Facial sensations are normal. Tongue protrudes in midline. Palate elevates symmetrically. Shoulder shrugging is normal Motor Examination: As above, otherwise normal muscle tone, bulk and strength. No atrophy or fasciculations. Minimal left drift. Bilateral hyperreflexia L>R. Plantars extensor. Straight Leg Raisin degrees. Sensory Exam: Normal light touch, temperature, pinprick, vibration, and joint- position sensations. Rhomberg sign is absent. Coordination: No ataxia. No titubation. Qfdcnu-og-amud, hbto-xwyi-xtyb test, and rapid alternating movements were normal. Gait Exam: Broad-based ataxic gait with some difficulty walking tandem. Slight circumduction of LLE. Uses cane. Cerebellar Signs: Remtxu-ai-nsgi and qitd-je-lgvc is normal. No dysdiadochokinesia. Extrapyramidal System: No tremor, rigidity with normal facial expressions. No bradykinesia. No bradyphrenia. Normal arm swing and posture. No propulsion or retropulsion. Speech: Normal. No dysphasia or dysarthria. Results Reviewed Results Reviewed: 08/29/22 NCV/EMG UE Normal motor and sensory nerve conduction velocities in the upper extremities. Normal EMG in the right C5-T1 innervated muscles. MRI Brain w and w/o 07/12/2023: Stable moderate burden of demyelinating disease without new or enhancing lesions identified to suggest active demyelination. No new acute intracranial process Assessment & Plan Assessment & Plan (1) Multiple sclerosis: Onset Date: ~2014 Code(s): G35 - Multiple sclerosis Category: Medical Plan: Continue teriflunomide 14mg 1 tablet daily. Last MRI brain in 06/2023 was stable. No new or worsening symptoms at this time. Option for MRI reviewed, declining at this time. Plan Switched to generic teriflunamide staring January 2023. Coding Level of Care Code Est Pt Level 4 (43447) Diagnoses Multiple sclerosis G35
--- OUTSIDE RECORDS SUMMARY | 2025-01-27 14:10 | XMS_ITS | Patient Health Record ---
Author Organization [facility] Address [address] [place] [address] Care Team Providers Care Clinical Informatics Physician Name Role Phone Prudencio Stroud MD Primary Care Provider Pavithra Ro Unavailable [phone] Allergies Allergen (clinical drug ingredient) Drug/Non Drug Allergy documented on EMR Reaction Allergy Type Onset Date Status Seasonale Unknown Drug Allergy Active Reason For Referral No Information Medications Medication SIG (Take, Route, Frequency, Duration) Notes Start Date End Date Status Probiotic Unknown Aubagio 14 MG 1 tablet Orally Once a day Unknown Physical Therapy . . . 2-3x/week; Durat ion: 3-4 weeks 10/03/2018 Unknown Mesalamine 1.2 GM 2 tablets Orally Onc e a day Active Furosemide 40 MG 1 tablet Orally Once a day Active Terazosin HCl 10 MG 1 capsule at bedtime Orally Once a day Active Losartan Potassium 50 MG 1 tablet Orally Once a day Active Compression Stockings 20-30mm Hg 1 pair wear daily; Duration: 30 days Unknown AFO-fixed . 1 . Wear daily; Dura tion: . 10/15/2023 Active Vitamin D3 Active Vitamin [...] primary osteoarthritis of the ankle and/or foot (521758134) Primary osteoarthritis, left ankle and foot (M19.072) Active confirmed Problem Chronic pain (87815173) Other chronic pain (G89.29) Active confirmed Problem MS (multiple sclerosis) (G35) Active confirmed Problem Osteoarthritis o f midtarsal joint of left foot (M19.072) Active confirmed Vital Signs Blood pressure diastolic 75 mm Hg 07/07/2024 Height 6ft1in in 07/07/2024 Blood pressure systolic 129 mm Hg 07/07/2024 Weight 235 lbs 07/07/2024 BMI 31 kg/m2 07/07/2024 Encounters Encounter Location Date Provider Diagnosis [address] [address] 02/04/2024 Pavithra Reynoso Osteoarthritis of midtarsal joint of left foot M19.072 ; Edema, lower extremity R60.0 ; Pain in left foot M79.672 ; Pain in left ankle and joints of left foot M25.572 ; Bursitis of left foot M77.52 ; Left foot drop M21.372 and Other chronic pain G89.[address] [address] 07/07/2024 Pavithra Black Osteoarthritis of midtarsal joint of left foot M19.072 ; Edema, lower extremity R60.0 ; Pain in left foot M79.672 ; Pain in left ankle and joints of left foot M25.572 ; Bursitis of left foot M77.52 ; Left foot drop M21.372 and Other chronic pain G89.[address] [address] 07/30/2024 Pavithrajb Reynoso Assessments Encounter Date Diagnosis (ICD Code) [...] Medicare [employer] [address] 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
--- OUTSIDE RECORDS SUMMARY | 2025-01-27 14:10 | XMS_ITS | Clinical Summary ---
Author Organization [facility] [address] [facility] Address [address] [place] [address] Phone Care Team Providers Care Roving Machine Operator Name Role Phone Kayla Galaviz MD Primary Care Provider [phone] Allergies No known active allergies Medications mesalamine (LIALDA) 1.2 gram EC tabletIndications :Crohn's disease of colon without complication ([facility] V24, [facility] V28) TAKE 2 TABLETS BY MOUTH EVERY DAY 180 tablet 5 Active losartan-hydroCHL OROthiazide (HYZAAR) 50-12.5 mg per tablet Take 1 tablet by mouth 1 (one) time each day. 5 Active terazosin (HYTRIN) 10 mg capsule Take by mouth. at bedtime 5 Active teriflunomide 14 mg tablet 14 mg. 5 Active vardenafiL (LEVITRA) 20 mg tablet TAKE 1 TABLET BY MOUTH DAILY SEXUAL ACTIVITY NEEDED 5 Active mesalamine (LIALDA) 1.2 gram EC tabletIndications :Crohn's disease of colon without complication ([facility] V24, [facility] V28) Take 1 tablet (1.2 g total) by mouth 2 (two) times a day. Do not crush, chew, or split. 60 each 11 5 12/25/19 26 Active Active Problems Problem Noted Date Diagnosed Date Multiple sclerosis ([facility] V24, [facility] V28) Overview (12/23/2024): Follows with neurology (Gisella) 6 mth basis. Erectile dysfunction 11/30/2015 Crohn's colitis ([facility] V24, [facility] V28) 02/28 Overview (12/23/2024): Followed by dr wasserman Assessment & Plan (12/24/2024 2:50 PM EDT): 59-year-old gentleman with longstanding history of Crohn's colitis presenting for follow-up. At this time doing very well with the use of mesalamine 2.4 g daily. He has no specific GI complaints. We did take the opportunity to review his last colonoscopy from March 2023 including pathology. 1. Continue current medication profile. 2. Follow-up in 1 year or as needed. 3. All questions and concerns were addressed. Orders: mesalamine (LIALDA) 1.2 gram EC tablet; Take 1 tablet (1.2 g total) by mouth 2 (two) times a day. Do not crush, chew, or split. Lung bullae ([facility] V24, [facility] V28) 0 Overview (12/23/2024): Incidental finding on chest X-ray 08/24/2009 Encounters Date Type Department Care Team Description 12/24/2024 2:40 PM EDT Office Visit Gastroenterology - [address] [facility] [address] [place] [address] Salvador Topete MD Crohn's disease of colon without complication ([facility] V24, [facility] V28) (Primary Dx) from Last 3 Months Immunizations Name Administration Dates Next Due Influenza Quadrivalent, 0.5m l, preservative free (Fluarix; FluLaval; Fluzone) ages 6mo and older (Afluria) 3yo and older 05/22/2016 Tdap Tetanus diptheria acell ular pertussis (Boostrix; Adacel) 7yo and older 12/01/2014 Surgical History Surgery Date Site/Laterality Comments NASAL SEPTOPLASTY W/ TURBINOPLASTY BRONCHOSCOPY VASECTOMY COLONOSCOPY 03/23/2023 - 04/21/2023 Medical History Medical History Date Comments Crohn's colitis ([facility] V24 , [facility] V28) 02/28/2010 DX:Crohn's colitis (HCC) Bronchitis, not specified as acute or chronic DX:Bronchitis, not specified as acute or chronic Multiple sclerosis ([facility] V24, [facility] V28) DX:Multiple sclerosis (HCC) Benign prostate hyperplasia Hyperlipidemia IBS (irritable bowel syndrome) Family History Medical History Relation Name Comments Diabetes Father Cataracts Paternal Grandmother Blindness Neg Hx Glaucoma Neg Hx Macular degeneration Neg Hx Strabismus Neg Hx Relation Name Status Comments Father Paternal Grandmother Social History Tobacco Use Types [...] Sexual Orientation Not on file Obstetrics History Last Filed Vital Signs Vital Sign Reading Time Taken Comments Blood Pressure - - Pulse - - Temperature - - Respiratory Rate - - Oxygen Saturation - - Inhaled Oxygen Concentration - - Weight 107 kg (236 lb) 12/24/2024 2:22 PM EDT Height 185.4 cm (6' 1 ) 12/24/2024 2:22 PM EDT Body Mass Index 31.14 12/24/2024 2:22 PM EDT Plan of Treatment Health Maintenance Due Date Last Done Comments Pneumococcal Vaccine: 50+ Years (1 of 1 - PCV) 2013 Zoster Vaccines (1 of 2) 2013 Cholesterol Screening (Lipid Panel) 06/24/2022 Colorectal Cancer Screening: Colonoscopy 06/24/2022 Depression Screening 06/24/2022 HIV Screening 06/24/2022 Hepatitis C Screening 06/24/2022 Social Influencers of Health Screening 06/24/2022 COVID-19 Vaccine ( season) 2024 06/19/2022, 04/15/2021, 11/05/2020, Additional history exists DTaP,Tdap,and Td Vaccines (2 - Td or Tdap) 12/01/2024 12/01/2014 Influenza Vaccine (#1) 2025 05/22/2016 RSV Immunization Adult Patients (1 - 1-dose 75+ series) 2038 HIB [...] age to complete this topic Pneumococcal Vaccine: Pediatrics (0 to 5 Years) and At-Risk Patients (6 to 49 Years) Aged Out No longer eligible based on patient's age to complete this topic RSV Immunization Patients Under 20 months Aged Out No longer eligible based on patient's age to complete this topic Varicella Vaccines Aged Out No longer eligible based on patient's age to complete this topic Insurance [facility] Care Teams Roving Machine Operator Relationship Specialty Start Date End Date Kayla Galaviz MD [address] [place] [id number] [facility] - General 03/02/23
== END 2025-01-27 14:22 | disposition home or self-care (01) ==
LOC: HO.HSM 13:27
PROVIDERS: PCP Family Medicine; Referring Provider Internal Medicine; Visit Provider Registered Nurse
DX: G35 Multiple sclerosis (principal)
CPT/HCPCS: 99214

== ENCOUNTER 2025-02-10 11:13 | Outpatient (AMB) | payer OTHER, MEDICARE, SELFPAY ==
--- NOTE | 2025-02-10 11:30 | A.OFFPC_ITS ---
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 Required: No Allergies No Known Allergies (No Known Allergies*) Allergy (Verified 02/10/25 11:31) Medication List - Last Reconciled 02/10/25 by Prudencio Stroud MD albuterol sulfate 90 mcg/actuation (Ventolin HFA) 1 inh inhalation QID PRN cholecalciferol (vitamin D3) 25 mcg PO DAILY furosemide 40 mg PO DAILY losartan-hydrochlorothiazide 50-12.5 mg 1 tab PO DAILY 90 days mesalamine 2.4 grams PO DAILY mesalamine (Delzicol) 1,200 mg PO BID terazosin 10 mg PO BEDTIME 90 days teriflunomide (Aubagio) 14 mg PO DAILY vardenafil 20 mg PO DAILY PRN 30 days vitamin B complex PO DAILY Tobacco use date assessed: 11/06/24 Dental Screening Dental Screen Date: 11/06/24 HPI f/u HTN, chronic conditions HPI Details 59 y/o male presents to f/u hypertension and elevated TSH level. BP today 120/70, 66p. He is on losartan-HCTZ 50-12.5mg daily. Pt reports difficulty sleeping, particularly falling asleep. [facility] Medical History (Updated 02/10/25 @ 11:58 by Brett Nichole) Colitis CTS (carpal tunnel syndrome) Lung cancer TIA (transient ischemic attack) Personal history of nicotine dependence BPH (benign prostatic hyperplasia) Hyperlipidemia Crohn's disease (~2005) IBS (irritable bowel syndrome) Multiple sclerosis (~2014) Surgical History (Updated 06/27/24 @ 10:55 by Hannah Oden PA-C) History of lung surgery History of nasal septoplasty History of bronchoscopy History of vasectomy H/O colonoscopy Family History Father DM (diabetes mellitus) Social History (Updated 06/27/24 @ 10:48 by Hannah Oden PA-C) Housing: House Patient Tobacco Use Status: Former Tobacco user Years Smoked: (onset 12yo, 1ppd x 40yrs, 40pyh - quit 2014) e-Cigarette/Vaping Use: Never Used Second Hand Smoke Exposure: No Current occupational status: unemployed and retired Current occupational exposures/hazards: No Cognitive needs: No Hearing needs: No Vision needs: Yes Questionnaire Thrive Questionnaire Date Thrive assessed: 09/08/24 I am a: Patient What is your living situation today?: I have a steady place to live Within the past 12 months, did the food you bought not last and you didn't have the money to get more?: I choose not to answer this question Within the past 12 months, did you worry whether your food would run out before you got money to buy more?: I choose not to answer this question Do you have trouble paying for medicines?: No Do you have trouble getting transportation to medical appointments?: No Do you have trouble paying your heating and electricity bill?: No Do you have trouble taking care of your child, family member or friend?: No Do you have trouble with day-to-day activities such as bathing, preparing meals, shopping, managing finances, etc.?: No Are you currently unemployed and looking for a job?: No Are you interested in more education?: No Please select the resources that you would like help with: None Currently or been in a relationship where the following occur: I choose not to answer THRIVE Score: 0 JING-7 AMB Questionnaire JING-7 Date JING - 7 assessed: 04/16/24 Source: Developed by Drs. Markos Albert, Agueda Auguste, Cristopher Ruiz and colleagues, with an educational viridiana from [employer]. Review of Systems Const Denies chills, Denies fatigue, Denies fever(s), Denies headache(s) and Denies weakness ENT Denies dizziness and Denies headache(s) Card Denies dyspnea Resp Denies cough, Denies dyspnea, Denies wheezing and Denies other (shortness of breath) Musc Denies numbness and Denies tingling Neuro Denies dizziness, Denies headache(s), Denies numbness, Denies tingling and Denies weakness Psych Denies anxiety and Denies depression Endo Denies fatigue Aller/Immun Denies wheezing Physical exam (Primary Care) Vital Signs: Last Vital Signs Temp 98.0 F 02/10/25 11:32 Pulse 66 02/10/25 11:32 Resp 14 02/10/25 11:32 BP 120/70 02/10/25 11:32 Pulse Ox 97 02/10/25 11:32 Oxygen Delivery Method Room Air 02/10/25 11:32 BMI result Body Mass Index 30.8 Tobacco/Smoking Status: Tobacco use Status Tobacco use date assessed 11/06/24 02/10/25 11:36 Patient Tobacco Use Status Former Tobacco user 02/10/25 11:36 e-Cigarette/Vaping Use Never Used 02/10/25 11:36 Thrive Assessment: Date of Thrive Assessment Date Thrive assessed 09/08/24 02/10/25 11:36 Currently or been in a relationship where the following occur: I choose not to answer Const General: well developed; No acute distress Nutritional Appearance: well nourished Orientation/consciousness: patient oriented x3 HENMT Head: Yes normocephalic and Yes atraumatic Eyes General: appearance normal, both eyes and all related structures Pupils: Equal, round and reactive pupils present EOM: EOMs intact bilaterally Resp Effort & Inspection: normal respiratory effort Auscultation: clear to auscultation bilaterally Cardio Rate: regular rate Rhythm: regular rhythm Heart sounds: S1 normal heart sound present, S2 normal heart sound present, no gallops, no murmurs and no rubs Neuro General: patient oriented x3 and gait normal Cranial nerves: Yes Equal, round and reactive pupils present Psych Affect: normal affect Coding Level of Care Code Est Pt Level 4 (71092) Diagnoses Hypertension I10 Elevated TSH R79.89 Difficulty sleeping G47.9 Multiple sclerosis G35 Assessment & Plan Assessment & Plan (1) Hypertension: Code(s): I10 - Essential (primary) hypertension Category: Medical Plan: Blood pressure now well controlled. Goal is less than 140/90 Continue current medication (2) Elevated TSH: Code(s): R79.89 - Other specified abnormal findings of blood chemistry Category: Medical Plan: TSH remains mildly elevated. T4 in normal range No significant symptoms. Will continue to monitor (3) Difficulty sleeping: Code(s): G47.9 - Sleep disorder, unspecified Category: Medical Plan: Patient notes some difficulty with falling asleep-he says at his mind continues rolling Will try some trazodone (4) Multiple sclerosis: Onset Date: ~2014 Code(s): G35 - Multiple sclerosis Category: Medical Plan: Followed by neurology Planning new MRI in the next few months. Condition is somewhat Stable although he still has unsteadiness his feet due to neurologic symptoms at left extremity. It have a fall since last visit. No hea d impact. Using cane as I encouraged him to continue this. Hydrate well Follow-up with Neurology as recommended Medications: New trazodone 100 mg PO BEDTIME PRN 30 tabs 2RF sleep 30 days
[2025-02-10 11:32] VITALS: BP 120/70; PULSE 66; RESP 14; TEMP 36.7; O2SAT 97; BMI 30.8
--- OUTSIDE RECORDS SUMMARY | 2025-02-10 12:29 | XMS_ITS | Patient Health Record ---
[facility] Organization [facility] Address [address] [place] [address] Care Team Providers Care Elevator Starter Name Role Phone Prudencio Stroud MD Primary Care Provider Pavithra Ro Unavailable [phone] Allergies Allergen (clinical drug ingredient) Drug/Non Drug [...] primary osteoarthritis of the ankle and/or foot (031309581) Primary osteoarthritis, left ankle and foot (M19.072) Active confirmed Problem Chronic pain (62145752) Other chronic pain (G89.29) Active confirmed Problem Multiple sclerosis (18455112) MS (multiple sclerosis) (G35) Active confirmed Problem Osteoarthritis of midtarsal joint of left foot (8352892995647519 ) Osteoarthritis of midtarsal joint of left foot (M19.072) Active confirmed Vital Signs Blood pressure diastolic 75 mm Hg 07/07/2024 Height 6ft1in in 07/07/2024 Blood pressure systolic 129 mm Hg 07/07/2024 Weight 235 lbs 07/07/2024 BMI 31 kg/m2 07/07/2024 Encounters Encounter Location Date Provider Diagnosis [facility] [address] 07/07/2024 Pavithra Reynoso Osteoarthritis of midtarsal joint of left foot M19.072 ; Edema, lower extremity R60.0 ; Pain in left foot M79.672 ; Pain in left ankle and joints of left foot M25.572 ; Bursitis of left foot M77.52 ; Left foot drop M21.372 and Other chronic pain G89.[address] [facility] [address] 07/30/2024 Pavithra Reynoso Assessments Encounter Date Diagnosis [...] End Date Medicare [employer] [address] [place] [address] [phone] [id number] Richard Greene III Self - patient is the insured [facility] [address] [place] [address] [id number] [phone] Jc III, Richard Self - patient is the insured Medical (General) History Medical History History ICD Code Crohns disease Multiple sclerosis Chicken pox left ankle swelling Elevated Ferritin Hemochromatosis 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
--- OUTSIDE RECORDS SUMMARY | 2025-02-10 12:29 | XMS_ITS | Clinical Summary ---
Author Organization [facility] [address] [facility] Address [address] [place] [address] Phone Care Team Providers Care Commercial Front Load Driver Name Role Phone Kayla Galaviz MD Primary Care Provider [phone] Allergies No known active allergies Medications mesalamine (LIALDA) 1.2 gram EC tabletIndications :Crohn's disease of colon without complication ([facility] V24, [facility] V28) TAKE 2 TABLETS BY MOUTH EVERY [...] tabletIndications :Crohn's disease of colon without complication ([facility] V24, [facility] V28) Take 1 tablet (1.2 g total) by mouth 2 (two) times a day. Do not crush, chew, or split. 60 each 11 5 12/25/19 26 Active Active Problems Problem Noted Date Diagnosed Date Multiple sclerosis ([facility] V24, [facility] V28) Overview (12/23/2024): Follows with neurology (Gisella) 6 mth basis. Erectile dysfunction 11/30/2015 Crohn's colitis ([facility] V24, [facility] V28) 02/28 Overview (12/23/2024): Followed by dr [...] not crush, chew, or split. Lung bullae ([facility] V24, [facility] V28) 0 Overview (12/23/2024): Incidental finding on chest X-ray 08/24/2009 Encounters Date Type Department Care Team Description 12/24/2024 2:40 PM EDT Office Visit Gastroenterology - [address] [facility] [address] [place] [address] Salvador Topete MD Crohn's disease of colon without complication ([facility] V24, [facility] V28) (Primary Dx) from Last 3 Months [...] History Medical History Date Comments Crohn's colitis ([facility] V24 , [facility] V28) 02/28/2010 DX:Crohn's colitis (HCC) Bronchitis, not specified as acute or chronic DX:Bronchitis, not specified as acute or chronic Multiple sclerosis ([facility] V24, [facility] V28) DX:Multiple sclerosis (HCC) Benign prostate hyperplasia [...] Panel) 06/24/2022 Colorectal Cancer Screening: Colonoscopy 06/24/2022 HIV Screening 06/24/2022 Hepatitis C Screening 06/24/2022 Social Influencers of Health Screening 06/24/2022 COVID-19 Vaccine ( season) 2024 06/19/2022, 04/15/2021, 11/05/2020, Additional history exists Depression Screening 07/23/2024 DTaP,Tdap,and Td Vaccines (2 - Td or [...] patient's age to complete this topic Insurance [facility] [address] [place] [address] Care Teams Commercial Front Load Driver Relationship Specialty Start Date End Date Kayla Galaviz MD [address] [place] [phone] PCP - General 03/02/23
== END 2025-02-10 12:07 | disposition home or self-care (01) ==
LOC: HO.HMCFM 11:14
PROVIDERS: PCP Family Medicine; Visit Provider Family Medicine
DX: I10 Essential (primary) hypertension (principal); R79.89 Other specified abnormal findings of blood chemistry; G47.9 Sleep disorder, unspecified; G35 Multiple sclerosis

== ENCOUNTER 2025-03-11 09:31 | Emergency (ER) | payer OTHER, MEDICARE, SELFPAY ==
--- NOTE | ~2025-03-11 | XR_ITS ---
EXAMINATION: XR FOOT, LEFT CLINICAL INFORMATION: wound planter great toe, c/f osteo COMPARISON: March 16, 2022 TECHNIQUE: AP, lateral, and oblique views of the left foot. FINDINGS: There is a bipartite medial sesamoid of the great toe. Joint spaces are preserved. There is a chronic small corticated ossification lateral to the PIP joint of the fifth digit. Joint spaces are preserved. There is no joint diastases or malalignment. XR/XR foot LT min 3V IMPRESSION: Stable left foot, no interval change. Electronically signed by: Richy Woo MD 03/11/2025 10:50 AM EDT
[2025-03-11 10:03] VITALS: BP 135/83; PULSE 69; RESP 16; TEMP 36.4; O2SAT 96; BMI 32.2
--- NOTE | 2025-03-11 10:07 | ED.GENADULT ---
HPI - General Adult General Chief complaint: Wound/Laceration Stated complaint: toe infection? Time Seen by Provider: 03/11/25 13:00 Source: patient Mode of arrival: ambulatory Limitations: no limitations History of Present Illness ED Provider: Monserrat Ellington PA-C HPI narrative: Patient is a 60 year old assigned male at with a history of HLD, MS, and Crohn's disease presenting to the emergency department today with a left great toe wound. Patient states that a year ago he had a blister that ruptured and he got a wound on his left great toe. Patient states that it healed eventually but 1 month ago he had his feet taken care of by a visiting nurse who used a dremel to remove his calluses and he developed the wound again. Patient states that it is painful to walk on. Patient denied any history of diabetes. Patient denies exposing the wound to any water sources. Patient denies any other complaints at this time. Relieving factors: none Exacerbating factors: none Associated symptoms: denies other symptoms Related Data Home Medications ?Medication ?Instructions ?Recorded ?Confirmed mesalamine 1.2 gram tablet,delayed 2.4 g PO DAILY 10/03/21 02/10/25 release teriflunomide 14 mg tablet 14 mg PO DAILY 10/03/21 02/10/25 (Aubagio) cholecalciferol (vitamin D3) 25 25 mcg PO DAILY 01/26/25 02/10/25 mcg (1,000 unit) capsule mesalamine 400 mg capsule (with 1,200 mg PO BID 01/26/25 02/10/25 delayed release tablets inside) (Delzicol) vitamin B complex PO DAILY 01/26/25 02/10/25 Previous Rx's ?Medication ?Instructions ?Recorded furosemide 40 mg tablet 40 mg PO DAILY #90 tabs 12/07/22 albuterol sulfate 90 mcg/actuation 1 inh inhalation QID PRN shortness 07/28/23 aerosol inhaler (Ventolin HFA) of breath or wheezing #8.5 grams vardenafil 20 mg tablet 20 mg PO DAILY PRN sexual activity 04/16/24 30 days #30 tabs terazosin 10 mg capsule 10 mg PO BEDTIME 90 days #90 caps 09/17/24 losartan 50 mg-hydrochlorothiazide 1 tab PO DAILY 90 days #90 tabs 11/06/24 12.5 mg tablet trazodone 100 mg tablet 100 mg PO BEDTIME PRN sleep 30 02/10/25 days #30 tabs doxycycline hyclate 100 mg tablet 100 mg PO BID 7 days #14 tabs 03/11/25 Allergies Allergy/AdvReac Type Severity Reaction Status Date / Time No Known Allergies (No Known Allergy Verified 03/11/25 10:09 Allergies*) Review of Systems Constitutional: Constitutional: Reports as per HPI Eyes: Eyes: Reports as per HPI ENT: Reports as per HPI Cardiovascular: Cardiovascular: Reports as per HPI Respiratory: Respiratory: Reports as per HPI Gastrointestinal: Gastrointestinal: Reports as per HPI Genitourinary: Genitourinary: Reports as per HPI Musculoskeletal: Musculoskeletal: Reports as per HPI Integumentary/Breasts: Comments: left great toe wound Neurologic: Reports as per HPI Psychiatric: Psychiatric: Reports as per HPI Endocrine: Endocrine: Reports as per HPI Hematologic/Lymphatic: Hematologic/Lymphatic: Reports as per HPI Allergic/Immunologic: Allergic/Immunologic: Reports as per HPI PMF Past Medical History Attestation statement: The following information was validated with the patient. Source: old records reviewed and nursing notes reviewed Medical History Colitis CTS (carpal tunnel syndrome) Lung cancer TIA (transient ischemic attack) Personal history of nicotine dependence BPH (benign prostatic hyperplasia) Hyperlipidemia Crohn's disease (~2005) IBS (irritable bowel syndrome) Multiple sclerosis (~2014) Surgical History History of lung surgery History of nasal septoplasty History of bronchoscopy History of vasectomy H/O colonoscopy Family History Family History Father DM (diabetes mellitus) Social History Social History Housing: House Patient Tobacco Use Status: Former Tobacco user Years Smoked: (onset 12yo, 1ppd x 40yrs, 40pyh - quit 2014) Smoked in Last 30 Days: No e-Cigarette/Vaping Use: Never Used Second Hand Smoke Exposure: No Use of substances other than those prescribed or required for medical reasons: No Advance Directives: No Advance Directives Information Provided: Yes Current occupational status: unemployed and retired Current occupational exposures/hazards: No Cognitive needs: No Hearing needs: No Vision needs: Yes Physical Exam ED Vital Signs: Vital Signs - 24 hr 03/11/25 10:03 03/11/25 13:49 Temperature 97.5 F 97.5 F Pulse Rate 69 73 Respiratory Rate 16 16 Blood Pressure 135/83 156/90 H Pulse Oximetry 96 99 Oxygen Delivery Method Room Air Room Air BMI result Body Mass Index 32.2 Const General: cooperative, no acute distress, alert and awake Nutritional Appearance: well nourished Orientation/consciousness: patient oriented x3 HENMT Head: Yes normal to inspection and Yes atraumatic Ears: hearing grossly normal bilaterally and external ears normal General nose exam: Normal external nose present, no nasal discharge noted and no epistaxis Face and sinus: Yes normal facial exam, No abrasion and No laceration Mouth: Normal oral and palatal mucosa present, no drooling and no muffled voice Eyes General: appearance normal, both eyes and all related structures Periorbital: periorbital findings normal Eyelids: Yes eyelids normal Conjunctivae: conjunctivae normal Pupils: Equal, round and reactive pupils present EOM: EOMs intact bilaterally Neck Neck: Yes normal visual inspection and Yes full ROM Resp Effort & Inspection: normal respiratory effort and able to speak in complete sentences Neuro General: patient oriented x3, moves all extremities and CN's II-XI intact bilaterally Cranial nerves: Yes Equal, round and reactive pupils present Cognition (Neuro): normal cognition Extrem Other: General: Yes full ROM and Yes capillary refill normal Psych Appearance: grossly normal Mental Status: mental status grossly normal Affect: normal affect Attitude: cooperative Thought process: Normal thought process present Thought content: Normal thought content present Insight: Good insight present (Psych) Course Course Course Narrative: This is a rapid medical exam performed by Mariah Marcum NP: Additional HPI, ROS, PE not included below will be deferred to primary provider. Patient is a 60-year-old male with history of MS, Crohns, HTN, presenting with infection to L great toe. Was being followed by wound care nurse, states around 2-3 mos ago, hole to plantar aspect of foot reopened. Worsening pain and swelling. Plan: labs, xray Medical Decision Making Medical Decision Making MDM Narrative: Patient is a 60 year old assigned male at with a history of HLD, MS, and Crohn's disease presenting to the emergency department today with a left great toe wound. Patient's physical exam was as noted in the physical exam portion of this note. Patient's blood work was unremarkable. Patient's left foot x-ray showed no acute process. I explained my physical exam findings as well as all test results to the patient. I answered all questions asked by the patient. The wound itself was dry so I dressed it with xeroform and a non stick gauze with a loose gauze wrapped to keep the dressing in place. Patient's PMS of the left lower extremity was intact prior to and after wound dressing was applied. Given patient has not been on any antibiotic lately for this - will cover with doxycycline. I stressed the importance of the patient taking his medication as directed (either prescribed or as the over the counter packaging recommends). I stressed the importance of the patient following up with his primary care provider and the wound center. I stressed the importance of the patient returning to the emergency department immediately if his symptoms were to worsen or if he were to develop any dizziness, shortness of breath, difficulty breathing, chest pain, blurry vision, loss of vision, nausea, vomiting, abdominal pain, fever, chills, back pain, or any other complaints. Patient verbalized agreement and understanding with this treatment plan and discharge. Differential Diagnosis Differential Diagnoses: The differential diagnosis associated with the presentation includes Non healing toe wound Cellulitis Chronic ulceration Admission/Observation Consideration of admission/observation: Escalation of care including admission/observation considered Patient would have been admitted to the hospital had his work up had any findings where hospital admission was appropriate and his clinical presentation warranted hospital admission. Lab Data [facility] Lab Attestation statement: I reviewed the patient's lab results. My interpretation of these results are in the MDM Rationale portion of this note. 03/11/25 10:14 03/11/25 10:14 Labs: Lab Results 03/11/25 Range/Units 10:14 WBC 4.4 L (4.8-10.8) X10*3/uL RBC 4.26 L (4.60-5.80) X10*6/uL Hgb 14.1 (14.0-18.0) g/dl Hct 41.4 L (42.0-52.0) % MCV 97.2 (80.0-98.0) fL MCH 33.1 H (27.0-33.0) pg MCHC 34.1 (31.0-36.0) g/dl RDW 13.3 (11.0-16.0) % Plt Count 205 (160-400) X10*3/uL MPV 8.9 L (9.4-12.4) fL Immature Gran % (Auto) 0.5 H (0.0-0.4) % Neut % (Auto) 44.2 L (45-73) % Lymph % (Auto) 34.1 (20-40) % Osborne % (Auto) 14.8 H (2-11) % Eos % (Auto) 4.8 H (0-4) % Baso % (Auto) 1.6 (0-2) % Lymph # (Auto) 1.5 (1.2-4.9) X10*3/uL Osborne # (Auto) 0.7 (0.1-1.2) X10*3/uL Eos # (Auto) 0.2 (0.0-0.4) X10*3/uL Baso # (Auto) 0.1 (0.0-0.2) X10*3/uL Abs Immat Gran (auto) 0.02 (0.00-0.03) X10*3/uL Absolute Neuts (auto) 2.0 (2.0-8.3) x10*3/uL Absolute Nucleated RBC 0.000 (0.0-0.012) X10*3/uL Nucleated RBC % (auto) 0.0 (0.0-0.2) /100WBC ESR 10 (0-15) MM/HR Sodium 140 (135-145) mmol/L Potassium 4.5 (3.3-5.1) mmol/L Chloride 106 (96-108) mmol/L Carbon Dioxide 26 (22-29) mmol/L Anion Gap 13 (12-20) BUN 19 H (9-16) mg/dL Creatinine 0.98 (0.5-1.4) mg/dL Estim Creat Clear Calc 99.1 Estimated GFR > 60 Random Glucose 109 (60-115) mg/dL Calcium 9.2 (8.4-10.2) mg/dL Total Bilirubin 0.7 (0.0-1.0) mg/dL AST 32 (5-37) U/L ALT 25 (0-40) U/L Alkaline Phosphatase 59 (39-117) U/L C-Reactive Protein 0.10 (< or = 0.50) mg/dL Total Protein 6.7 (6.5-8.0) g/dL Albumin 4.3 (3.5-5.0) g/dL Independent Interpretation I performed an independent interpretation of an: Plain X-Ray Interpretation: My interpretation is in agreement with the radiologist's impression of this imaging study. EXAMINATION: XR FOOT, LEFT CLINICAL INFORMATION: wound planter great toe, c/f osteo COMPARISON: March 16, 2022 TECHNIQUE: AP, lateral, and oblique views of the left foot. FINDINGS: There is a bipartite medial sesamoid of the great toe. Joint spaces are preserved. There is a chronic small corticated ossification lateral to the PIP joint of the fifth digit. Joint spaces are preserved. There is no joint diastases or malalignment. XR/XR foot LT min 3V IMPRESSION: Stable left foot, no interval change. Electronically signed by: Richy Woo MD 03/11/2025 10:50 AM EDT RP Dictated By: Richy Woo MD Signed By: Electronically signed by Richy Woo MD 03/11/25 1050 Radiology Impression Discussion of test interpretation with radiology: I have reviewed the radiologist's reading. Prescription Management I considered prescription management with: Antibiotic (patient prescribed an antibiotic for possible cellulitis) Discharge Plan Discharge Clinical Impression: Wound of foot Cellulitis Qualifiers: Site of cellulitis: unspecified site Qualified Code(s): L03.90 - Cellulitis, unspecified Patient Disposition: Home, Self-Care Instructions: Cellulitis (ED), Acute Wounds (DC) Additional Instructions: Your work up today was reassuring that your infection has not spread to the bone. This wound is going to be challenging to heal. Perform daily wound checks and dressing changes - apply the xeroform (yellow gauze) to the area first, then the non-stick gauze, and wrap it just tight enough that the dressing stays on but NOT so tight that you cause any numbness or tingling to the toe. It is crucial you take your antibiotic as prescribed and follow up with the wound center. IF you are prescribed home medications and/or you are taking over the counter medications at home - it is very important you continue to do so as prescribed / directed unless told otherwise. Follow up with your primary care provider. Return to the emergency department immediately if your symptoms worsen or if you develop any numbness, tingling, dizziness, shortness of breath, difficulty breathing, chest pain, blurry vision, loss of vision, nausea, vomiting, abdominal pain, fever, chills, back pain, or any other complaints. Please see the information below about our Patient Portal. If you are not yet enrolled in the [facility] Patient Portal, you will receive an enrollment email invitation following your visit to any [facility] care setting. You may also self-enroll in the Patient Portal by visiting our website: [email or web address] The following information is required to access the Patient Portal: - Your [facility] Medical Record Number - Your personal home email address (must match what is in your electronic medical record, Registration staff can assist with this) - Name - Date of Capabilities of the Patient Portal: - Message some providers - View upcoming appointments - Access your health summary, medical history, and visit history - View current conditions and allergies - View procedure and lab results - View your medications, including guidelines, side effects, and precautions - Complete pre-appointment questionnaires requested by your provider - Ready summary reports of your office visits and procedures To access the Patient Portal Mobile Ra, follow these directions: - Search [employer] in the Ra Store or [employer] Store - Download the Ra - Search for [facility] - Enter your login/password Prescriptions: New doxycycline hyclate 100 mg tablet 100 mg PO BID 7 Days Qty: 14 0RF No Action albuterol sulfate [Ventolin HFA] 90 mcg/actuation HFA aerosol inhaler 1 inh inhalation QID PRN (Reason: shortness of breath or wheezing) Qty: 8.5 1RF mesalamine 1.2 gram tablet,delayed release (DR/EC) 2.4 g PO DAILY Aubagio 14 mg tablet 14 mg PO DAILY vitamin B complex PO DAILY furosemide 40 mg tablet 40 mg PO DAILY Qty: 90 1RF vardenafil 20 mg tablet 20 mg PO DAILY PRN (Reason: sexual activity) 30 Days Qty: 30 2RF losartan-hydrochlorothiazide 50-12.5 mg tablet 1 tab PO DAILY 90 Days Qty: 90 2RF mesalamine [Delzicol] 400 mg capsule (with del rel tablets) 1,200 mg PO BID cholecalciferol (vitamin D3) 25 mcg (1,000 unit) capsule 25 mcg PO DAILY terazosin 10 mg capsule 10 mg PO BEDTIME 90 Days Qty: 90 3RF trazodone 100 mg tablet 100 mg PO BEDTIME PRN (Reason: sleep) 30 Days Qty: 30 2RF Referrals: [facility] Wound Care Management [Provider Group] Referral Note: Call to establish and follow up with the wound center for your left great toe ulceration / wound. Prudencio Stroud MD [Primary Care Provider, Internal Medicine] Interventions: ED Discharge Assessment Last Done: 03/11/25 13:49 Discharge Date/Time: 03/11/25 13:50 Print Language: Martiniquais
[2025-03-11 10:23] LABS: MANUAL DIFF FLAG NO
[2025-03-11 10:25] LABS: Hematocrit 41.4 % (42.0-52.0); Hemoglobin 14.1 g/dl (14.0-18.0); Imm Gran Abs Auto 0.02 X10*3/uL (0.00-0.03); Imm Gran Pct Auto 0.5 % (0.0-0.4); Lymphocytes Absolute Auto 1.5 X10*3/uL (1.2-4.9); Mean Corpuscular HGB Conc 34.1 g/dl (31.0-36.0); Mean Corpuscular Hemoglobin 33.1 pg (27.0-33.0); Mean Corpuscular Volume 97.2 fL (80.0-98.0); NRBC Abs Auto 0.000 X10*3/uL (0.0-0.012); NRBC Pct Auto 0.0 /100WBC (0.0-0.2); Platelet Count 205 X10*3/uL (160-400); Red Blood Count 4.26 X10*6/uL (4.60-5.80); White Blood Count 4.4 X10*3/uL (4.8-10.8)
[2025-03-11 10:48] LABS: Alanine Aminotransferase 25 U/L (0-40); Albumin Level 4.3 g/dL (3.5-5.0); Alkaline Phosphatase 59 U/L (39-117); Anion Gap 13 (12-20); Aspartate Amino Transferase 32 U/L (5-37); Blood Urea Nitrogen 19 mg/dL (9-16); Calcium 9.2 mg/dL (8.4-10.2); Carbon Dioxide 26 mmol/L (22-29); Chloride 106 mmol/L (96-108); Creatinine Clr Calc Pharmacy 99.1; Estimated Glomerular Filt Rate > 60; Potassium 4.5 mmol/L (3.3-5.1); Sodium 140 mmol/L (135-145); Total Protein 6.7 g/dL (6.5-8.0)
--- OUTSIDE RECORDS SUMMARY | 2025-03-11 11:35 | XMS_ITS | Clinical Summary ---
Author Organization [facility] [address] [facility] Address [address] [place] [address] Phone Care Team Providers Care Test Manager Name Role Phone Kayla Galaviz MD Primary Care Provider [phone] Allergies No known active allergies Medications mesalamine (LIALDA) 1.2 gram EC tabletIndications :Crohn's disease of colon without complication ([facility] V24, [facility] V28) TAKE 2 TABLETS BY MOUTH EVERY [...] tabletIndications :Crohn's disease of colon without complication ([facility] V24, [facility] V28) Take 1 tablet (1.2 g total) by mouth 2 (two) times a day. Do not crush, chew, or split. 60 each 11 5 12/25/19 26 Active Active Problems Problem Noted Date Diagnosed Date Multiple sclerosis ([facility] V24, [facility] V28) Overview (12/23/2024): Follows with neurology (Gisella) 6 mth basis. Erectile dysfunction 11/30/2015 Crohn's colitis ([facility] V24, [facility] V28) 02/28 Overview (12/23/2024): Followed by dr [...] not crush, chew, or split. Lung bullae ([facility] V24, [facility] V28) 0 Overview (12/23/2024): Incidental finding on chest X-ray 08/24/2009 Encounters Date Type Department Care Team Description 12/24/2024 2:40 PM EDT Office Visit Gastroenterology - [address] [place] [phone] Salvador Topete MD Crohn's disease of colon without complication ([facility] V24, [facility] V28) (Primary Dx) from Last 3 Months [...] History Medical History Date Comments Crohn's colitis ([facility] V24 , [facility] V28) 02/28/2010 DX:Crohn's colitis (HCC) Bronchitis, not specified as acute or chronic DX:Bronchitis, not specified as acute or chronic Multiple sclerosis ([facility] V24, [facility] V28) DX:Multiple sclerosis (HCC) Benign prostate hyperplasia [...] patient's age to complete this topic Insurance [facility] [address] [place] [address] Care Teams Test Manager Relationship Specialty Start Date End Date Kayla Galaviz MD [address] [place] [phone] PCP - General 03/02/23
--- OUTSIDE RECORDS SUMMARY | 2025-03-11 11:35 | XMS_ITS | Patient Health Record ---
Author Organization [facility] Address [address] [place] [address] Care Team Providers Care International Relations Professor Name Role Phone Prudencio Stroud MD Primary Care Provider Pavithra Ro Unavailable [phone] Allergies Allergen (clinical drug ingredient) Drug/Non Drug [...] primary osteoarthritis of the ankle and/or foot (165381291) Primary osteoarthritis, left ankle and foot (M19.072) Active confirmed Problem Chronic pain (96852809) Other chronic pain (G89.29) Active confirmed Problem Multiple sclerosis (82154678) MS (multiple sclerosis) (G35) Active confirmed Problem Osteoarthritis of midtarsal joint of left foot (9326158594048171 ) Osteoarthritis of midtarsal joint of left foot (M19.072) Active confirmed Vital Signs Blood pressure diastolic 75 mm Hg 07/07/2024 Height 6ft1in in 07/07/2024 Blood pressure systolic 129 mm Hg 07/07/2024 Weight 235 lbs 07/07/2024 BMI 31 kg/m2 07/07/2024 Encounters Encounter Location Date Provider Diagnosis [facility] [address] 07/07/2024 Pavithra Reynoso Osteoarthritis of midtarsal joint of left foot M19.072 ; Edema, lower extremity R60.0 ; Pain in left foot M79.672 ; Pain in left ankle and joints of left foot M25.572 ; Bursitis of left foot M77.52 ; Left foot drop M21.372 and Other chronic pain G89.[address] [facility] [address] 07/30/2024 Pavithra Reynoso Assessments Encounter Date Diagnosis [...] Next Appt Details Provider Name:Pavithra Reynoso , 05/08/2025 10:15:00 AM, [address], [place], [address], Insurance Providers Payer Name Payer Address Payer Phone Subscriber Number Group Number Insured Name Patient Relationship to Insured Coverage Start Date Coverage End Date Medicare National [employer] S[employer] [address] [place] [address] [id number] Jc III, Richard Self - patient is the insured [facility] [address] [place] [address] [phone] [id number] Jc III, Richard Self - patient is the insured Medical (General) History Medical History History ICD Code Crohns disease Multiple sclerosis Chicken pox left ankle swelling Elevated Ferritin Hemochromatosis 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
[2025-03-11 13:49] VITALS: BP 156/90; PULSE 73; RESP 16; TEMP 36.4; O2SAT 99
== END 2025-03-11 13:50 | disposition home or self-care (01) ==
PROVIDERS: Registered Nurse Emergency; Emergency Provider Emergency Medicine; PCP Family Medicine
DX: L03.116 Cellulitis of left lower limb (principal); Z79.899 Other long term (current) drug therapy
CPT/HCPCS: 36415; 73630; 80053; 85025; 85652; 86140; 99283

== ENCOUNTER → 2025-03-11 10:08 | Outpatient (BNV) | payer OTHER, MEDICARE, SELFPAY | PROVIDERS: PCP Family Medicine; Visit Provider Radiology Diagnostic Radiology | DX: M79.675 Pain in left toe(s) (principal) | CPT/HCPCS: 73630 ==

== ENCOUNTER 2025-03-16 09:51 | Outpatient (REF) | payer OTHER, MEDICARE, SELFPAY ==
--- OUTSIDE RECORDS SUMMARY | 2025-03-16 10:48 | XMS_ITS | Patient Health Record ---
Author Organization [facility] Address [address] [place] [address] Care Team Providers Care Hotel Service Supervisor Name Role Phone Prudencio Stroud MD Primary Care Provider Pavithra Ro Unavailable [phone] Allergies Allergen (clinical drug ingredient) Drug/Non Drug [...] primary osteoarthritis of the ankle and/or foot (648113200) Primary osteoarthritis, left ankle and foot (M19.072) Active confirmed Problem Chronic pain (67578913) Other chronic pain (G89.29) Active confirmed Problem Multiple sclerosis (81814310) MS (multiple sclerosis) (G35) Active confirmed Problem Osteoarthritis o f midtarsal joint of left foot (M19.072) Active confirmed Vital Signs Blood pressure diastolic 75 mm Hg 07/07/2024 Height 6ft1in in 07/07/2024 Blood pressure systolic 129 mm Hg 07/07/2024 Weight 235 lbs 07/07/2024 BMI 31 kg/m2 07/07/2024 Encounters Encounter Location Date Provider Diagnosis [facility] [address] 07/07/2024 Pavithra Reynoso Osteoarthritis of midtarsal joint of left foot M19.072 ; Edema, lower extremity R60.0 ; Pain in left foot M79.672 ; Pain in left ankle and joints of left foot M25.572 ; Bursitis of left foot M77.52 ; Left foot drop M21.372 and Other chronic pain G89.[address] [address] 07/30/2024 [facility] [address] [address] 03/11/2025 Pavithra Reynoso Assessments Encounter Date Diagnosis (ICD [...] Name:Pavithra Reynoso , 05/08/2025 10:15:00 AM, [address], [place], [address], Insurance Providers Payer Name Payer Address Payer Phone Subscriber Number Group Number Insured Name Patient Relationship to Insured Coverage Start Date Coverage End Date Medicare National Gov[employer] Svcs [employer] [address] [place] [address] [id number] Jc III, Richard Self - patient is the insured [facility] [address] [place] [address] [phone] [id number] Jc III, Richard Self - patient is the insured Medical (General) History Medical History History ICD Code Crohns disease Multiple sclerosis Chicken pox left ankle swelling Elevated Ferritin Hemochromatosis 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
--- OUTSIDE RECORDS SUMMARY | 2025-03-16 10:48 | XMS_ITS | Clinical Summary ---
Author Organization [facility] Address [address] [place] [address] Phone Care Team Providers Care Glass Lined Tank Repairer Name Role Phone Kayla Galaviz MD Primary Care Provider [phone] Allergies No known active allergies Medications mesalamine (LIALDA) 1.2 gram EC tabletIndications :Crohn's disease of colon without complication ([facility] V24, [facility] V28) TAKE 2 TABLETS BY MOUTH EVERY [...] tabletIndications :Crohn's disease of colon without complication ([facility] V24, [facility] V28) Take 1 tablet (1.2 g total) by mouth 2 (two) times a day. Do not crush, chew, or split. 60 each 11 5 12/25/19 26 Active Active Problems Problem Noted Date Diagnosed Date Multiple sclerosis ([facility] V24, [facility] V28) Overview (12/23/2024): Follows with neurology (Gisella) 6 mth basis. Erectile dysfunction 11/30/2015 Crohn's colitis ([facility] V24, [facility] V28) 02/28 Overview (12/23/2024): Followed by dr [...] not crush, chew, or split. Lung bullae ([facility] V24, [facility] V28) 0 Overview (12/23/2024): Incidental finding on chest X-ray 08/24/2009 Encounters Date Type Department Care Team Description 12/24/2024 2:40 PM EDT Office Visit Gastroenterology - [address] [place] [address] Salvador Topete MD Crohn's disease of colon without complication ([facility] V24, [facility] V28) (Primary Dx) from Last 3 Months [...] History Medical History Date Comments Crohn's colitis ([facility] V24 , [facility] V28) 02/28/2010 DX:Crohn's colitis (HCC) Bronchitis, not specified as acute or chronic DX:Bronchitis, not specified as acute or chronic Multiple sclerosis ([facility] V24, [facility] V28) DX:Multiple sclerosis (HCC) Benign prostate hyperplasia [...] age to complete this topic Insurance [facility] [address] [place] [address] Care Teams Glass Lined Tank Repairer Relationship Specialty Start Date End Date Kayla Galaviz MD [address] [place] [phone] PCP - General 03/02/23
== END 2025-03-16 09:52 | disposition home or self-care (01) ==
LOC: HO.LAB 09:51
PROVIDERS: PCP Family Medicine; Visit Provider Family Medicine
DX: Z13.89 Encounter for screening for other disorder (principal)

== ENCOUNTER 2025-05-18 10:35 | Outpatient (AMB) | payer OTHER, MEDICARE, SELFPAY ==
--- NOTE | 2025-05-18 10:45 | MHC.PC.OV ---
Vital Signs 05/18/25 10:46 Height 6 ft Weight 241 lb BMI 32.7 BP 102/70 Blood Pressure Location Rt brachial Position Sitting Respiration 16 Pulse 76 Pulse Source Pulse Oximeter Temp 97.7 F Temp Source Oral Pulse Oximetry (%) 94 Oxygen Delivery Method Room Air Intake Visit Reasons: f/u HTN, thyroid levels Intake Note: Follow up. Went to [facility] last month for a toe infection. Fusion Analyst Required: No Allergies No Known Allergies (No Known Allergies*) Allergy (Verified 05/18/25 10:45) Medication List - Last Reconciled 05/18/25 by Prudencio Stroud MD albuterol sulfate 90 mcg/actuation (Ventolin HFA) 1 inh inhalation QID PRN cholecalciferol (vitamin D3) 25 mcg PO DAILY furosemide 40 mg PO DAILY losartan-hydrochlorothiazide 50-12.5 mg 1 tab PO DAILY 90 days mesalamine 2.4 grams PO DAILY mesalamine (Delzicol) 1,200 mg PO BID terazosin 10 mg PO BEDTIME 90 days teriflunomide 14 mg PO DAILY 30 days trazodone 100 mg PO BEDTIME PRN 30 days vardenafil 20 mg PO DAILY PRN 30 days vitamin B complex PO DAILY Tobacco use date assessed: 11/06/24 Dental Screening Dental Screen Date: 11/06/24 HPI f/u HTN, thyroid levels HPI Details 60 y/o male presents to f/u hypertension, chronic conditions. Blood pressure today 102/70, 76p. He is on losartan-HCTZ 50-12.5mg daily. Hx of elevated fasting glucose. A1c today 05/18/25 5.1%. Pt had cellulitis of L great toe, ulceration in February They had put him on doxycycline and pt notes wound has been improving. He continues to f/u with wound care. Reports venous insufficiency of LLE along with some swelling. HPI Comments History of Present Illness Details Documentation assistance for Prudencio Stroud MD, was provided by Brett Nichole, Information Technology Security Analyst on 05/18/2025 at 11:03 AM MICHAEL. I, Dr. Stroud, have read, observed, and verified documentation. [facility] Medical History Colitis CTS (carpal tunnel syndrome) Lung cancer TIA (transient ischemic attack) Personal history of nicotine dependence BPH (benign prostatic hyperplasia) Hyperlipidemia Crohn's disease (~2006) IBS (irritable bowel syndrome) Multiple sclerosis (~2014) Surgical History History of lung surgery History of nasal septoplasty History of bronchoscopy History of vasectomy H/O colonoscopy Family History Father DM (diabetes mellitus) Social History Housing: House Patient Tobacco Use Status: Former Tobacco user Years Smoked: (onset 12yo, 1ppd x 40yrs, 40pyh - quit 2014) e-Cigarette/Vaping Use: Never Used Second Hand Smoke Exposure: No Current occupational status: unemployed and retired Current occupational exposures/hazards: No Cognitive needs: No Hearing needs: No Vision needs: Yes Questionnaire Thrive Questionnaire Date Thrive assessed: 09/08/24 I am a: Patient What is your living situation today?: I have a steady place to live Within the past 12 months, did the food you bought not last and you didn't have the money to get more?: I choose not to answer this question Within the past 12 months, did you worry whether your food would run out before you got money to buy more?: I choose not to answer this question Do you have trouble paying for medicines?: No Do you have trouble getting transportation to medical appointments?: No Do you have trouble paying your heating and electricity bill?: No Do you have trouble taking care of your child, family member or friend?: No Do you have trouble with day-to-day activities such as bathing, preparing meals, shopping, managing finances, etc.?: No Are you currently unemployed and looking for a job?: No Are you interested in more education?: No Please select the resources that you would like help with: None Currently or been in a relationship where the following occur: I choose not to answer THRIVE Score: 0 AUDIT C Alcohol Use Questionnaire (AUDIT-C) 1. How often do you have a drink containing alcohol?: Monthly or less 2. How many drinks containing alcohol do you have on a typical day when you are drinking?: 1 or 2 3. How often do you have six or more drinks on one occasion?: Never Total Score: 1 JING-7 AMB Questionnaire JING-7 Date JING - 7 assessed: 04/16/24 Source: Developed by Drs. Markos Albert, Agueda Auguste, Cristopher Ruiz and colleagues, with an educational viridiana from [employer]. Review of Systems Const Denies chills, Denies fatigue, Denies fever(s), Denies headache(s) and Denies weakness ENT Denies dizziness and Denies headache(s) Card Denies dyspnea Resp Denies cough, Denies dyspnea, Denies wheezing and Denies other (shortness of breath) Musc Denies numbness and Denies tingling Neuro Denies dizziness, Denies headache(s), Denies numbness, Denies tingling and Denies weakness Psych Denies anxiety and Denies depression Endo Denies fatigue Aller/Immun Denies wheezing Physical exam (Primary Care) Vital Signs: Last Vital Signs Temp 97.7 F 05/18/25 10:46 Pulse 76 05/18/25 10:46 Resp 16 05/18/25 10:46 BP 102/70 05/18/25 10:46 Pulse Ox 94 05/18/25 10:46 Oxygen Delivery Method Room Air 05/18/25 10:46 BMI result Body Mass Index 32.7 Tobacco/Smoking Status: Tobacco use Status Tobacco use date assessed 11/06/24 05/18/25 10:52 Patient Tobacco Use Status Former Tobacco user 05/18/25 10:52 e-Cigarette/Vaping Use Never Used 05/18/25 10:52 Thrive Assessment: Date of Thrive Assessment Date Thrive assessed 09/08/24 05/18/25 10:52 Currently or been in a relationship where the following occur: I choose not to answer Const General: well developed; No acute distress Nutritional Appearance: well nourished Orientation/consciousness: patient oriented x3 HENMT Head: Yes normocephalic and Yes atraumatic Eyes General: appearance normal, both eyes and all related structures Pupils: Equal, round and reactive pupils present EOM: EOMs intact bilaterally Resp Effort & Inspection: normal respiratory effort Neuro General: patient oriented x3 and gait normal Cranial nerves: Yes Equal, round and reactive pupils present Psych Affect: normal affect Results AMB Hemoglobin A1c AMB Hemoglobin A1c 5.1 % Last Edit by Nai Zimmerman CMA on 05/18/25 11:04 Coding Level of Care Code Est Pt Level 4 (71278) Diagnoses Hypertension I10 Elevated fasting glucose R73.01 Cellulitis L03.90 Site of cellulitis: unspecified site Knee pain M25.569 Venous insufficiency of left leg I87.2 Swelling of lower extremity M79.89 Assessment & Plan Assessment & Plan (1) Hypertension: Code(s): I10 - Essential (primary) hypertension Category: Medical Plan: Blood pressure is well controlled. Goal is less than 140/90 Continue current medication (2) Elevated fasting glucose: Code(s): R73.01 - Impaired fasting glucose Category: Medical Plan: Elevated fasting blood sugar but A1c 5.1% is in normal range. Family history of diabetes Likely some insulin resistance and I encouraged a diet lower in sugars and starches Will continue to monitor periodically (3) Cellulitis: Code(s): L03.90 - Cellulitis, unspecified Category: Medical Qualifiers: Site of cellulitis: unspecified site Qualified Code(s): L03.90 - Cellulitis, unspecified Plan: Recent history of left great toe ulceration and cellulitis He was treated with doxycycline and wound care/dressing changes Patient says wound is nearly healed Follow-up with wound care as recommended Call or return to office if worsening or not improving fully. (4) Knee pain: Code(s): M25.569 - Pain in unspecified knee Category: Medical Plan: Patient notes bilateral knee pain Patient notes that he has had chronic left knee pain and has been compensating - now notes right knee pain as well. Will check x-rays and follow-up together to decide next steps. (5) Venous insufficiency of left leg: Code(s): I87.2 - Venous insufficiency (chronic) (peripheral) Category: Medical (6) Swelling of lower extremity: Comment: left Code(s): M79.89 - Other specified soft tissue disorders Category: Medical Plan Lower extremity edema and likely left venous insufficiency. Patient is already compliant with medication and conservative care. Referred to vascular surgery Orders: Orders AMB Hemoglobin A1c Today H91.90 - Unspecified hearing loss, unspecified ear Free T4 (Free Thyroxine) Today E03.9 - Hypothyroidism, unspecified Thyroid Stimulating Hormone Today E03.9 - Hypothyroidism, unspecified Erythrocyte Sedimentation Rate Today M25.569 - Pain in unspecified knee XR knee RT 3V Today M25.569 - Pain in unspecified knee Triiodothyronine T3 Total Today E03.9 - Hypothyroidism, unspecified Comprehensive Met. Panel Today R79.89 - Other specified abnormal findings of blood chemistry Complete Blood Count Auto Diff Today M25.569 - Pain in unspecified knee, Z00.00 - Encounter for general adult medical examination without abnormal findings XR knee LT 3V Today M25.569 - Pain in unspecified knee Referrals Vascular Surgery Referral R60.0 - Localized edema
[2025-05-18 10:46] VITALS: BP 102/70; PULSE 76; RESP 16; TEMP 36.5; O2SAT 94; BMI 32.7
== END 2025-05-18 11:12 | disposition home or self-care (01) ==
LOC: HO.HMCFM 10:37
PROVIDERS: PCP Family Medicine; Visit Provider Family Medicine
DX: I10 Essential (primary) hypertension (principal); R73.01 Impaired fasting glucose; L03.90 Cellulitis, unspecified; M25.569 Pain in unspecified knee; I87.2 Venous insufficiency (chronic) (peripheral); M79.89 Other specified soft tissue disorders; H91.90 Unspecified hearing loss, unspecified ear

== ENCOUNTER → 2025-05-18 10:35 | Outpatient (BNVA) | payer OTHER, MEDICARE, SELFPAY | PROVIDERS: PCP Family Medicine; Visit Provider Family Medicine | DX: M25.561 Pain in right knee (principal); M25.562 Pain in left knee; I10 Essential (primary) hypertension; R73.01 Impaired fasting glucose; L03.90 Cellulitis, unspecified; I87.2 Venous insufficiency (chronic) (peripheral); M79.89 Other specified soft tissue disorders | CPT/HCPCS: 83036 ==

== ENCOUNTER 2025-06-09 09:28 | Outpatient (REF) | payer OTHER, MEDICARE, SELFPAY ==
--- NOTE | ~2025-06-09 | XR_ITS ---
Exam: X-ray, bilateral knees.XR KNEE 3 VIEWS BILATERAL TECHNIQUE: Three views lower extremity joint, bilateral knees INDICATION: M25.569 - Pain in unspecified knee COMPARISON: None available. FINDINGS: RIGHT KNEE: There is mild narrowing of the medial and lateral joint space. There are small marginal sites along the medial joint line. There small sites involving intercondylar tubercles. There is no joint effusion. LEFT KNEE: There is mild narrowing of the medial greater than lateral joint space. Intercondylar tubercles are minimally peaked. There is no joint effusion. Atherosclerotic ossifications are evident in the posterior distal thigh. XR/XR Knee Angel Luis 3V IMPRESSION: Right knee: Mild degenerative changes, likely osteoarthritis. Left knee: Mild degenerative changes, no joint effusion. No joint effusion. Electronically signed by: Richy Woo MD 06/09/2025 10:16 AM MICHAEL
[2025-06-09 09:44] LABS: MANUAL DIFF FLAG NO
[2025-06-09 10:35] LABS: Hematocrit 43.8 % (42.0-52.0); Hemoglobin 14.5 g/dl (14.0-18.0); Imm Gran Abs Auto 0.01 X10*3/uL (0.00-0.03); Imm Gran Pct Auto 0.2 % (0.0-0.4); Lymphocytes Absolute Auto 1.9 X10*3/uL (1.2-4.9); Mean Corpuscular HGB Conc 33.1 g/dl (31.0-36.0); Mean Corpuscular Hemoglobin 32.3 pg (27.0-33.0); Mean Corpuscular Volume 97.6 fL (80.0-98.0); NRBC Abs Auto 0.000 X10*3/uL (0.0-0.012); NRBC Pct Auto 0.0 /100WBC (0.0-0.2); Platelet Count 244 X10*3/uL (160-400); Red Blood Count 4.49 X10*6/uL (4.60-5.80); White Blood Count 4.4 X10*3/uL (4.8-10.8)
[2025-06-09 11:06] LABS: Anion Gap 12 (12-20); Blood Urea Nitrogen 19 mg/dL (9-16); Calcium 9.5 mg/dL (8.4-10.2); Carbon Dioxide 26 mmol/L (22-29); Chloride 107 mmol/L (96-108); Estimated Glomerular Filt Rate > 60; Potassium 4.1 mmol/L (3.3-5.1); Sodium 141 mmol/L (135-145)
[2025-06-09 11:07] LABS: Alanine Aminotransferase 27 U/L (0-40); Albumin Level 4.6 g/dL (3.5-5.0); Alkaline Phosphatase 66 U/L (39-117); Aspartate Amino Transferase 30 U/L (5-37); Total Protein 7.5 g/dL (6.5-8.0)
[2025-06-09 11:23] LABS: Free T4 (Free Thyroxine) 0.85 ng/dL (0.71-1.85); Thyroid Stimulating Hormone 4.64 uIU/mL (0.32-4.0)
== END 2025-06-09 09:29 | disposition home or self-care (01) ==
LOC: HO.XRAY 09:28
PROVIDERS: PCP Family Medicine; Visit Provider Family Medicine
DX: Z00.00 Encounter for general adult medical examination without abnormal findings (principal); M25.561 Pain in right knee; M25.562 Pain in left knee; E03.9 Hypothyroidism, unspecified; R79.89 Other specified abnormal findings of blood chemistry
CPT/HCPCS: 36415; 73562; 80053; 84439; 84443; 84480; 85025; 85652

== ENCOUNTER → 2025-06-09 09:46 | Outpatient (BNV) | payer OTHER, MEDICARE, SELFPAY | PROVIDERS: PCP Family Medicine; Visit Provider Radiology Diagnostic Radiology | DX: M17.0 Bilateral primary osteoarthritis of knee (principal) | CPT/HCPCS: 73562 ==

== ENCOUNTER 2025-06-11 11:30 | Outpatient (RCR) | payer OTHER, MEDICARE, SELFPAY | END 2025-06-11 16:13 | disposition home or self-care (01) | LOC: HO.WCC 11:30 | PROVIDERS: PCP Family Medicine; Visit Provider Surgery Surgical Oncology | DX: L84 Corns and callosities (principal); M21.372 Foot drop, left foot; G35.D Multiple sclerosis, unspecified; I10 Essential (primary) hypertension; Z09 Encounter for follow-up examination after completed treatment for conditions other than malignant neoplasm; Z87.2 Personal history of diseases of the skin and subcutaneous tissue; Z87.891 Personal history of nicotine dependence | CPT/HCPCS: 11042; 97597; 99212; 99213 ==

== ENCOUNTER 2025-06-22 10:40 | Outpatient (AMB) | payer OTHER, MEDICARE, SELFPAY ==
[2025-06-22 10:47] VITALS: BP 118/76; PULSE 65; TEMP 36.1; O2SAT 97; BMI 32.5
--- NOTE | 2025-06-22 10:47 | A.OFFPC_ITS ---
Vital Signs 06/22/25 10:47 Height 6 ft Weight 240 lb BMI 32.5 BP 118/76 Blood Pressure Location Rt brachial Position Sitting Pulse 65 Pulse Source Pulse Oximeter Temp 97.0 F Temp Source Temporal Artery Scan Pulse Oximetry (%) 97 Oxygen Delivery Method Room Air Intake Visit Reasons: f/u knee pain, lab Allergies No Known Allergies (No Known Allergies*) Allergy (Verified 06/22/25 10:49) Medication List - Last Reconciled 06/22/25 by Prudencio Stroud MD albuterol sulfate 90 mcg/actuation (Ventolin HFA) 1 inh inhalation QID PRN cholecalciferol (vitamin D3) 25 mcg PO DAILY furosemide 40 mg PO DAILY losartan-hydrochlorothiazide 50-12.5 mg 1 tab PO DAILY 90 days mesalamine 2.4 grams PO DAILY mesalamine (Delzicol) 1,200 mg PO BID terazosin 10 mg PO BEDTIME 90 days teriflunomide 14 mg PO DAILY 30 days trazodone 100 mg PO BEDTIME PRN 30 days vardenafil 20 mg PO DAILY PRN 30 days vitamin B complex PO DAILY Tobacco use date assessed: 06/22/25 Dental Screening Dental Screen Date: 06/22/25 Did you have a dental visit in the last 12 months?: Yes Did you have a dental problem in the last 6 months where you did not have access to dental care?: No Was dental information given to patient?: Patient has dentist HPI f/u knee pain, lab HPI Details 60 y/o male presents to f/u knee pain, l abs. Labs drawn 06/09/25. Reviewed labs with pt. TSH 4.64 uIU/L. Free 4 0.85 ng/dL. Total T3 111 ng/dL. Reports some lower extremity swelling. BP today 118/76, 65p. He is on losartan-HCTZ 50-12.5mg daily. [facility] Medical History Colitis CTS (carpal tunnel syndrome) Lung cancer TIA (transient ischemic attack) Personal history of nicotine dependence BPH (benign prostatic hyperplasia) Hyperlipidemia Crohn's disease (~2005) IBS (irritable bowel syndrome) Multiple sclerosis (~2014) Surgical History History of lung surgery History of nasal septoplasty History of bronchoscopy History of vasectomy H/O colonoscopy Family History Father DM (diabetes mellitus) Social History Housing: House Patient Tobacco Use Status: Former Tobacco user Years Smoked: (onset 12yo, 1ppd x 40yrs, 40pyh - quit 2014) e-Cigarette/Vaping Use: Never Used Second Hand Smoke Exposure: No Current occupational status: unemployed and retired Current occupational exposures/hazards: No Cognitive needs: No Hearing needs: No Vision needs: Yes Questionnaire PHQ-9 Over the last 2 weeks, how often have you been bothered by any of the following problems? 1. Little interest or pleasure in doing things: not at all 2. Feeling down, depressed, or hopeless: not at all 3. Trouble falling or staying asleep, or sleeping too much: not at all 4. Feeling tired or having little energy: not at all 5. Poor appetite or overeating: not at all 6. Feeling bad about yourself - or that you are a failure or have let yourself or your family down: not at all 7. Trouble concentrating on things, such as reading the newspaper or watching television: not at all 8. Moving or speaking so slowly that other people could have noticed. Or the opposite - being so fidgety or restless that you have been moving around a lot more than usual: not at all 9. Thoughts that you would be better off or of hurting yourself in some way: not at all Total score: 0 Source: Developed by Drs. Markos Albert, Agueda Auguste, Cristopher Ruiz and colleagues, with an educational viridiana from [employer]. Thrive Questionnaire Date Thrive assessed: 09/08/24 I am a: Patient What is your living situation today?: I have a steady place to live Within the past 12 months, did the food you bought not last and you didn't have the money to get more?: I choose not to answer this question Within the past 12 months, did you worry whether your food would run out before you got money to buy more?: I choose not to answer this question Do you have trouble paying for medicines?: No Do you have trouble getting transportation to medical appointments?: No Do you have trouble paying your heating and electricity bill?: No Do you have trouble taking care of your child, family member or friend?: No Do you have trouble with day-to-day activities such as bathing, preparing meals, shopping, managing finances, etc.?: No Are you currently unemployed and looking for a job?: No Are you interested in more education?: No Please select the resources that you would like help with: None Currently or been in a relationship where the following occur: I choose not to answer THRIVE Score: 0 AUDIT C Alcohol Use Questionnaire (AUDIT-C) 1. How often do you have a drink containing alcohol?: Monthly or less 2. How many drinks containing alcohol do you have on a typical day when you are drinking?: 1 or 2 3. How often do you have six or more drinks on one occasion?: Never Total Score: 1 JING-7 AMB Questionnaire JING-7 Date JING - 7 assessed: 06/22/25 Feeling nervous, anxious, or on edge: 0 = Not at all Not being able to stop or control worryin = Not at all Worrying too much about different things: 0 = Not at all Trouble relaxin = Several days Being so restless that it is hard to sit still: 0 = Not at all Becoming easily annoyed or irritable: 1 = Several days Feeling afraid as if something awful might happen: 0 = Not at all Total JING-7 score (0-4 normal; 5-9 mild; 10-14 moderate; 15-21 severe): 2 Source: Developed by Drs. Markos Albert, Agueda Auguste, Cristopher Ruiz and colleagues, with an educational viridiana from [employer]. JING-7 Assessment Billing JING-7 Assessment Tool: JING-7 Assessment 40294 Review of Systems Const Denies chills, Denies fatigue, Denies fever(s), Denies headache(s) and Denies weakness ENT Denies dizziness and Denies headache(s) Card Denies dyspnea Resp Denies cough, Denies dyspnea, Denies wheezing and Denies other (shortness of breath) Musc Denies numbness and Denies tingling Neuro Denies dizziness, Denies headache(s), Denies numbness, Denies tingling and Denies weakness Psych Denies anxiety and Denies depression Endo Denies fatigue Aller/Immun Denies wheezing Physical exam (Primary Care) Vital Signs: Last Vital Signs Temp 97.0 F 06/22/25 10:47 Pulse 65 06/22/25 10:47 BP 118/76 06/22/25 10:47 Pulse Ox 97 06/22/25 10:47 Oxygen Delivery Method Room Air 06/22/25 10:47 BMI result Body Mass Index 32.5 Tobacco/Smoking Status: Tobacco use Status Tobacco use date assessed 06/22/25 06/22/25 10:49 Patient Tobacco Use Status Former Tobacco user 06/22/25 10:49 e-Cigarette/Vaping Use Never Used 06/22/25 10:49 PHQ-9: PHQ-9 Score PHQ-9: Total score 0 06/22/25 11:10 Thrive Assessment: Date of Thrive Assessment Date Thrive assessed 09/08/24 06/22/25 10:49 Currently or been in a relationship where the following occur: I choose not to answer Const General: well developed; No acute distress Nutritional Appearance: well nourished Orientation/consciousness: patient oriented x3 HENMT Head: Yes normocephalic and Yes atraumatic Eyes General: appearance normal, both eyes and all related structures Pupils: Equal, round and reactive pupils present EOM: EOMs intact bilaterally Resp Effort & Inspection: normal respiratory effort Neuro General: patient oriented x3 and gait normal Cranial nerves: Yes Equal, round and reactive pupils present Psych Affect: normal affect Coding Level of Care Code Est Pt Level 4 (24029) Diagnoses Knee pain M25.569 Swelling of lower extremity M79.89 Hypertension I10 Elevated TSH R79.89 Additional Codes JING-7 Assessment Billing - JING-7 Assessment Tool: JING-7 Assessment 27447 ([id number]) Assessment & Plan Assessment & Plan (1) Knee pain: Code(s): M25.569 - Pain in unspecified knee Category: Medical Plan: Ongoing bilateral knee pain. X-rays show mild degenerative changes Continue using NSAIDs as tolerated Also recommend ice and will order physical therapy to keep quadriceps and hamstrings strong If worsening or not improving he will let me know in I will refer him to ortho (2) Swelling of lower extremity: Code(s): M79.89 - Other specified soft tissue disorders Category: Medical Plan: Had advised conservative care at last visit and this is working well. Minimal edema in lower extremities Continue elevation and salt avoidance Continue per compression stockings Follow-up with vascular surgery as recommended (3) Hypertension: Code(s): I10 - Essential (primary) hypertension Category: Medical Plan: Blood pressure is well controlled. Goal is less 140/90 Continue current medications (4) Elevated TSH: Code(s): R79.89 - Other specified abnormal findings of blood chemistry Category: Medical Plan: TSH still mildly elevated. T4 and T3 are within normal range No attributable adverse effects/symptoms Recommend we continue to monitor and patient agrees. Orders: Orders PT Evaluation and Treatment Today M25.569 - Pain in unspecified knee Medications: New naproxen 500 mg PO BID PRN 180 tabs 3RF pain 90 days
== END 2025-06-22 11:38 | disposition home or self-care (01) ==
LOC: HO.HMCFM 10:41
PROVIDERS: PCP Family Medicine; Visit Provider Family Medicine
DX: M25.569 Pain in unspecified knee (principal); M79.89 Other specified soft tissue disorders; I10 Essential (primary) hypertension; R79.89 Other specified abnormal findings of blood chemistry

== ENCOUNTER → 2025-06-22 10:40 | Outpatient (BNVA) | payer OTHER, MEDICARE, SELFPAY | PROVIDERS: PCP Family Medicine; Visit Provider Family Medicine | DX: I10 Essential (primary) hypertension (principal); M79.89 Other specified soft tissue disorders; R79.89 Other specified abnormal findings of blood chemistry; M25.561 Pain in right knee; M25.562 Pain in left knee | CPT/HCPCS: 96127 ==

== ENCOUNTER 2025-07-20 09:46 | Emergency (ER) | payer OTHER, SELFPAY ==
--- OUTSIDE RECORDS SUMMARY | 2025-05-08 05:15 | XMS_ITS ---
Author Organization [facility] Address [address] [place] [address] Care Team Providers Care Sales And Service Agent Name Role Phone Luanne HIDALGO, Prudencio Primary Care Provider Pavithra Ro [phone] Encounters Encounter Location Date Provider Diagnosis [address] [address] 05/08/2025 Pavithra Reynoso Plan Of Treatment No Information Progress Notes * Richard OLIVERA III BDOB:1964 (60 yo M)Acc No.[id number]:05/08/2025 Progress Note Patient: Richard FUNG III Provider: Sonia Reynoso DPM :1965 A ge:60 Y S ex:Male Date:05/08/2025 Address:[address] [place], [place] [id number] Pcp:Prudencio Stroud MD Subjective: * Chief Complaints: * * Medical History: Objective: * Vitals: Assessment: Plan: * Treatment: * Images: * The named appointment provid er may or may not be the originator of this progress note, and it is not deemed complete until electronically signed by the appointment provider. Sign off status: Pending * Provider: Sonia Reynoso DPM Date: Generated for Tini ng/Falazarog/eTransmitting on: 05:27 PM EST
--- OUTSIDE RECORDS SUMMARY | 2025-07-20 17:28 | XMS_ITS | Clinical Summary ---
Author Organization [facility] [address] [facility] Address [address] [place] [address] Phone Care Team Providers Care Boiler Coverer Helper Name Role Phone Kayla Galaviz MD Primary Care Provider [phone] Allergies No known active allergies Medications mesalamine (LIALDA) 1.2 gram EC tabletIndications :Crohn's disease of colon without complication (CMS/HCC V24, CMS/HCC V28) TAKE 2 TABLETS BY MOUTH EVERY [...] tabletIndications :Crohn's disease of colon without complication (CMS/HCC V24, CMS/HCC V28) Take 1 tablet (1.2 g total) by mouth 2 (two) times a day. Do not crush, chew, or split. 60 each 11 5 12/25/19 26 Active Active Problems Problem Noted Date Diagnosed Date Multiple sclerosis 12/23/2024 Overview (12/23/2024): Follows with neurology (Gisella) 6 mth basis. Erectile dysfunction 11/30/2015 Crohn's colitis 02/28/2010 Overview (12/23/2024): Followed by dr wasserman Assessment [...] not crush, chew, or split. 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 Overview (12/23/2024): Incidental finding on chest X-ray 08/24/2009 Immunizations Immunization Administration Dates Next Due Influenza Quadrivalent, 0.5m l, preservative free (Fluarix; FluLaval; Fluzone) ages 6mo and older (Afluria) 3yo and older 05/22/2016 Tdap Tetanus diptheria acell ular pertussis (Boostrix; Adacel) 7yo and older 12/01/2014 Surgical History Surgery Date Site/Laterality Comments NASAL SEPTOPLASTY W/ TURBINOPLASTY BRONCHOSCOPY VASECTOMY COLONOSCOPY 03/23/2023 - 04/21/2023 Medical History Medical History Date Comments Crohn's colitis (CMS/HCC V24 , CMS/HCC V28) 02/28/2010 DX:Crohn's colitis (HCC) Bronchitis, not specified as acute or chronic DX:Bronchitis, not specified as acute or chronic Multiple sclerosis DX:Multiple s clerosis (HCC) Benign prostate hyperplasia Hyperlipidemia IBS (irritable [...] on file Sexual Orientation Not on file Last Filed Vital Signs Vital Sign Reading [...] 2) 2013 Cholesterol Screening (Lipid Panel) 06/24/2022 HIV Screening 06/24/2022 Hepatitis C Screening 06/24/2022 Social Influencers of Health Screening 06/24/2022 Depression Screening 07/23/2024 DTaP,Tdap,and Td Vaccines (2 - Td or Tdap) 12/01/2024 12/01/2014 COVID-19 Vaccine ( season) 2025 06/19/2022, 04/15/2021, 11/05/2020, Additional history exists Influenza Vaccine (#1) 2025 05/22/2016 Colorectal Cancer Screening: Colonoscopy 04/02/2035 04/02/2025 RSV Immunization Adult Patients (1 - 1-dose [...] on patient's age to complete this topic Procedures Procedure Name Priority Date/Time Associated Diagnosis Comments EXTERNAL COLONOSCOPY REPORT Routine 04/02/2025 10:57 AM EDT from Last 3 Months or Most Recently Relevant to Health Maintenance Results * External Colonoscopy Report (04/02/2025 10:57 AM EDT) Anatomical Region Laterality Modality Endoscopy us Historical Provider GI~PROCEDURE ORDERABLES F inal Result from Last 3 Months or Most Recently Relevant to Health Maintenance Insurance [facility] [address] [place] [address] Care Teams Boiler Coverer Helper Relationship Specialty Start Date End Date Kayla Galaviz MD [address] [place] [address] [phone] PCP - General 03/02/23
--- OUTSIDE RECORDS SUMMARY | 2025-07-20 17:28 | XMS_ITS | Patient Health Record ---
Author Organization [facility] Address [address] [place] [address] Care Team Providers Care Program Or Project Administrator Name Role Phone Prudencio Stroud MD Primary Care Provider Pavithra Ro Unavailable [phone] Allergies Allergen (clinical drug ingredient) Drug/Non Drug [...] primary osteoarthritis of the ankle and/or foot ([id number]) Primary osteoarthritis, left ankle and foot (M19.072) Active confirmed Problem Chronic pain (38735545) Other chronic pain (G89.29) Active confirmed Problem Multiple sclerosis (64117450) MS (multiple sclerosis) (G35) Active confirmed Problem Osteoarthritis of midtarsal joint of left foot ([id number] ) Osteoarthritis of midtarsal joint of left foot (M19.072) Active confirmed Encounters Encounter Location Date Provider Diagnosis [facility] [address] [place] [address] 07/30/2024 [facility] [place] [address] [facility] [address] [place] [address] 03/11/2025 [facility] [address] [place] [address] 05/06/2025 Pavithra Reynoso Plan Of Treatment No Information Insurance Providers Payer Name Payer Address Payer Phone Subscriber Number Group Number Insured Name Patient Relationship to Insured Coverage Start Date Coverage End Date Medicare [employer] [address] [place] [address] [id number] Hill III, Richard Self - patient is the insured [facility] [address] [place] [address] [id number] Hill III, Richard Self - patient is the insured Medical (General) History Medical History History ICD Code Crohns disease Multiple sclerosis Chicken pox left ankle swelling Elevated Ferritin Hemochromatosis 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
== END 2025-07-20 15:25 | disposition left against medical advice (07) ==
LOC: HO.ED 15:22
PROVIDERS: Emergency Provider Emergency Medicine; PCP Family Medicine
DX: M79.672 Pain in left foot (principal)